=== PATIENT | male | born 1960 | race Caucasian/White ===

== ENCOUNTER → 2017-09-15 14:22 | Outpatient (REF) | payer OTHER, SELFPAY ==
[2017-09-15 18:17] LABS: Basophils % 0.5 % (0.1-2.0); Eosinophils # 0.2 K/mm3 (0.0-0.4); Hematocrit 52.2 % (42.0-52.0); Hemoglobin 17.7 g/dL (14.1-18.0); Lymphocytes # 1.8 K/mm3 (0.7-4.5); Lymphocytes % 23.4 K/mm3 (10-50); Mean Corpuscular Hemoglobin 32.9 pg (27.0-31.2); Mean Corpuscular Volume 96.8 fl (80-94); Mean Platelet Volume 8.1 fl (7.4-10.4); Monocytes # 0.4 K/mm3 (0.1-1.0); Monocytes % 5.4 % (1.7-9.3); Neutrophils # 5.4 K/mm3 (1.8-7.8); Neutrophils % 68.7 % (37.0-80.0); Platelet Count 262 K/mm3 (142-424); Red Cell Distribution Width 12.8 % (11.5-17.5); White Blood Count 7.8 K/mm3 (4.8-10.8)
[2017-09-15 19:13] LABS: Alanine Aminotransferase 41 U/L (12-78); Albumin Level 3.9 gm/dL (3.4-5.0); Albumin/Globulin Ratio 1.1 (1.1-1.8); Alkaline Phosphatase 163 U/L (46-116); Aspartate Amino Transferase 23 U/L (15-37); Bilirubin,Total 0.4 mg/dL (0.2-1.0); Blood Urea Nitrogen 19 mg/dL (7-18); Carbon Dioxide 24 mmol/L (21.0-32.0); Chol/HDL Ratio 7.6 (1-3.5); Cholesterol 190 mg/dL (140-200); Creatinine,Serum 1.04 mg/dL (0.70-1.30); Estimated Glomerular Filt Rate 74 ml/min (>60); GFR (African American) 90 ML/MIN (>60); Globulin 3.6 gm/dl (1.3-3.2); Glucose 120 mg/dL (74-106); HDL Cholesterol 25 mg/dL (27-67); LDL Cholesterol 98 mg/dL (0-130); Sodium 129 mmol/L (136-145); T4 (Thyroxine) 11.5 ug/dl (4.7-13.3); Thyroid Stimulating Hormone 0.64 uIU/ml (0.358-3.740); Total Protein,Serum 7.5 gm/dL (6.4-8.2); Triglycerides 334 mg/dL (30-200); VLDL Cholesterol 67 mg/dL (0-40)
[2017-09-15 19:29] LABS: Anion Gap 9.4 mEq/L (5-15); Chloride 100 mmol/L (98-107); Potassium 4.4 mmoL/L (3.5-5.1)
[2017-09-18 06:19] LABS: Vitamin D 25 Hydroxy 13.6 ng/mL (30.0-100.0)
== END ==
LOC: LAB 14:22
PROVIDERS: Visit Provider Physician Assistant
DX: I10 Essential (primary) hypertension (principal)
CPT/HCPCS: 80053; 80061; 82652; 84436; 84443; 85025

== ENCOUNTER → 2018-04-24 15:17 | Outpatient (CLI) | payer OTHER, SELFPAY ==
--- NOTE | 2018-04-24 15:20 | US_ITS ---
US soft tissue head and neck CLINICAL INDICATION: Palpable nodule in the right neck ITS.REASON: swelling right anterior neck ORDERING PHYSICIAN: DUSTIN Calderon PATIENT AGE: 57 years Comparison: None FINDINGS: The right lobe of the thyroid gland is 4.9 x 3.5 x 3.4 cm. Nodule A: 14 x 6 mm partially cystic nodule is solid component peripherally. Nodule B: Large complex cystic nodule 3 x 2.8 cm in the mid polar region. This has a septated cystic appearance with thickened septa. The left lobe is 4.6 x 1.7 x 1.2 cm and contains a 3 mm cyst centrally. In the lower pole there is a 7 x 5 monitor hypoechoic nodule with central cystic area There has been prior right parotidectomy. There is a 11 x 5 mm hypoechoic nodule in the right parotid bed. Could be due to hypoechoic lymph node or small cystic lesion. The right submandibular gland, left parotid gland and left submandibular gland are unremarkable. IMPRESSION: 1. Palpable nodule corresponds to a complex cystic mass of the right lobe of thyroid gland at 3 x 2.8 cm. 2. Oval hypoechoic area in right parotid bed etiology indeterminate 11 x 5 mm
== END ==
PROVIDERS: PCP Physician Assistant; Visit Provider Physician Assistant
DX: R22.0 Localized swelling, mass and lump, head (principal); R22.1 Localized swelling, mass and lump, neck
CPT/HCPCS: 76536

== ENCOUNTER → 2018-05-06 20:32 | Outpatient (CLI) | payer OTHER, SELFPAY ==
[2018-05-06 23:08] LABS: Alanine Aminotransferase 70 U/L (12-78); Albumin Level 4.2 gm/dL (3.4-5.0); Albumin/Globulin Ratio 1.1 (1.1-1.8); Alkaline Phosphatase 196 U/L (46-116); Anion Gap 15.9 mEq/L (5-15); Aspartate Amino Transferase 25 U/L (15-37); Bilirubin,Total 0.4 mg/dL (0.2-1.0); Blood Urea Nitrogen 16 mg/dL (7-18); Calcium 9.2 mg/dL (8.5-10.1); Carbon Dioxide 26 mmol/L (21.0-32.0); Chloride 101 mmol/L (98-107); Chol/HDL Ratio 7.4 (1-3.5); Cholesterol 216 mg/dL (140-200); Creatinine,Serum 1.16 mg/dL (0.70-1.30); Estimated Glomerular Filt Rate 65 ml/min (>60); GFR (African American) 79 ML/MIN (>60); Globulin 3.9 gm/dl (1.3-3.2); Glucose 101 mg/dL (74-106); HDL Cholesterol 29 mg/dL (27-67); LDL Cholesterol 124 mg/dL (0-130); Potassium 4.9 mmoL/L (3.5-5.1); Sodium 138 mmol/L (136-145); T4 (Thyroxine) 11.2 ug/dl (4.7-13.3); Thyroid Stimulating Hormone 0.25 uIU/ml (0.358-3.740); Total Protein,Serum 8.1 gm/dL (6.4-8.2); Triglycerides 315 mg/dL (30-200); VLDL Cholesterol 63 mg/dL (0-40)
[2018-05-06 23:10] LABS: Basophils # 0.1 K/mm3 (0-0.2); Basophils % 0.4 % (0.1-2.0); Eosinophils # 0.2 K/mm3 (0.0-0.4); Eosinophils % 1.5 % (0.1-12.0); Hematocrit 53.5 % (42.0-52.0); Hemoglobin 17.7 g/dL (14.1-18.0); Lymphocytes # 1.5 K/mm3 (0.7-4.5); Lymphocytes % 13.5 % (10-50); Mean Corpuscular HGB Conc 33.1 g/dL (31.8-35.4); Mean Corpuscular Hemoglobin 33.1 pg (27.0-31.2); Mean Corpuscular Volume 99.8 fl (80-94); Mean Platelet Volume 8.7 fl (7.4-10.4); Monocytes # 0.4 K/mm3 (0.1-1.0); Monocytes % 3.9 % (1.7-9.3); Neutrophils % 80.7 % (37.0-80.0); Platelet Count 287 K/mm3 (142-424); Red Blood Count 5.36 M/mm3 (4.60-6.20); Red Cell Distribution Width 13.1 % (11.5-17.5); White Blood Count 11.2 K/mm3 (4.8-10.8)
[2018-05-09 10:52] LABS: Vitamin B12 367 pg/mL (232-1245); Vitamin D 25 Hydroxy 29.2 ng/mL (30.0-100.0)
[2018-05-09 10:54] LABS: Folate 2.9 ng/mL (>3.0); PSA, Free 0.35 ng/mL; Prostate Specific Ag 1.1 ng/mL (0.0-4.0)
== END ==
PROVIDERS: Visit Provider Physician Assistant
DX: R41.0 Disorientation, unspecified (principal)
CPT/HCPCS: 80053; 80061; 82607; 82652; 82746; 84153; 84154; 84436; 84443; 85025

== ENCOUNTER → 2018-05-25 07:56 | Outpatient (CLI) | payer OTHER, SELFPAY ==
--- NOTE | 2018-05-25 08:03 | MR_ITS ---
MR head/brain wo con HISTORY: Confusion, altered mental status altered level consciousness, disorientation ITS.REASON: confusion ORDERING PHYSICIAN: DUSTIN Calderon PATIENT AGE: 57 years Comparison: None TECHNIQUE: Standard multiplanar multiecho sequences are performed without contrast. FINDINGS: No midline shift, mass effect, intracranial hemorrhage, or hydrocephalus. No evidence of acute infarction. There are scattered periventricular T2 white matter hyperintensities consistent with ischemic gliotic change from microvascular disease. The cerebellopontine angle, cerebellum, and brainstem are unremarkable. Small area of increased T2 signal present in the retropharyngeal region and the left at 10 mm consistent with a retropharyngeal cyst. Mild mucosal thickening of the maxillary sinuses. No mastoid effusion or sinus air-fluid level. The pituitary and optic heights and has an unremarkable appearance. IMPRESSION: 1. No acute intracranial findings. 2. 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
== END ==
PROVIDERS: PCP Emergency Medicine; Visit Provider Physician Assistant
DX: R41.0 Disorientation, unspecified (principal)
CPT/HCPCS: 70551

== ENCOUNTER → 2018-08-03 17:02 | Outpatient (CLI) | payer BC, SELFPAY ==
[2018-08-03 18:30] LABS: Basophils % 0.3 % (0.1-2.0); Eosinophils # 0.2 K/mm3 (0.0-0.4); Eosinophils % 2.8 % (0.1-12.0); Hematocrit 50.4 % (42.0-52.0); Hemoglobin 17.1 g/dL (14.1-18.0); Lymphocytes # 1.7 K/mm3 (0.7-4.5); Mean Corpuscular Hemoglobin 32.8 pg (27.0-31.2); Mean Corpuscular Volume 96.2 fl (80-94); Mean Platelet Volume 8.4 fl (7.4-10.4); Monocytes # 0.5 K/mm3 (0.1-1.0); Monocytes % 6.9 % (1.7-9.3); Neutrophils # 4.6 K/mm3 (1.8-7.8); Neutrophils % 66.1 % (37.0-80.0); Platelet Count 260 K/mm3 (142-424); Red Blood Count 5.23 M/mm3 (4.60-6.20); Red Cell Distribution Width 13.1 % (11.5-17.5); White Blood Count 6.9 K/mm3 (4.8-10.8)
== END ==
PROVIDERS: Visit Provider Specialist
DX: R41.0 Disorientation, unspecified (principal); E53.8 Deficiency of other specified B group vitamins; G47.30 Sleep apnea, unspecified; G93.40 Encephalopathy, unspecified; I25.10 Atherosclerotic heart disease of native coronary artery without angina pectoris; R41.3 Other amnesia; R53.83 Other fatigue
CPT/HCPCS: 85025

== ENCOUNTER → 2019-03-04 15:04 | Outpatient (CLI) | payer OTHER, BC, SELFPAY ==
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
== END ==
PROVIDERS: PCP Emergency Medicine; Visit Provider Nurse Practitioner Family
DX: M54.2 Cervicalgia (principal); M54.9 Dorsalgia, unspecified
CPT/HCPCS: 72141; 72148; 76376

== ENCOUNTER 2019-08-30 13:43 | Emergency (ER) | payer BC, SELFPAY ==
[2019-08-30 13:58] VITALS: BP 140/82; PULSE 97; RESP 20; TEMP 36.6; O2SAT 100; BMI 25.7
--- NOTE | 2019-08-30 14:13 | HMH.EDUTC ---
[facility] Disposition Clinical Impression: DDD (degenerative disc disease), lumbar Chronic low back pain Qualifiers: Back pain laterality: bilateral Sciatica presence: with sciatica Sciatica laterality: sciatica of right side Qualified Code(s): M54.41 - Lumbago with sciatica, right side Disposition: Home, Self-Care Condition on Discharge: Good Instructions: Low Back Pain Additional Instructions: Go home and rest. It would be best if you rested tomorrow too. No heavy lifting. No twisting. Take the oral medications as directed. The muscle relaxer (robaxin) will make you drowsy, so don't drive or operate heavy machinery after taking it. Don't start the oral steroids (medrol dose pack) until tomorrow, since you had the shots in here today. Follow up with your regular doctor. GO TO THE ER FOR ANY WORSENING SYMPTOMS OR CONCERN, ESPECIALLY BOWEL OR BLADDER ISSUES, SADDLE AREA NUMBNESS, FEVER, ETC Prescriptions: methylPREDNISolone [Medrol] 4 mg PO DIRECTED 6 Days #21 tab.ds.pk Transmission Status: Received by [facility] methocarbamoL [Robaxin 750mg Tab] 750 mg PO TIDP PRN #30 tab PRN Reason: Muscle Spasm Transmission Status: Received by [facility] Referrals: Gilmar Kendrick MD [Primary Care Provider] - Forms: Work/School Release Time of Disposition: 14:28 Medical Decision Making - Medical Records Medical records reviewed: No: I reviewed the patient's medical records. - Rod Inquiry Pt receiving controlled substance: No Vital Signs: 08/30/19 13:58 08/30/19 14:23 Temperature 97.9 F 97.9 F Temperature Source Oral Oral Pulse Rate 97 H Pulse Rate [Right Brachial] 97 H Respiratory Rate 20 20 Blood Pressure 140/82 Blood Pressure [Right Arm] 140/82 Blood Pressure Mean [Right Arm] 101 Blood Pressure Source Automatic Cuff Blood Pressure Source [Right Arm] Automatic Cuff Blood Pressure Position Sitting Blood Pressure Position [Right Arm] Sitting 02 Sat by Pulse Oximetry 100 Oxygen Delivery Method Room Air Room Air Orders (Tests/Meds): ED MEDICATIONS Discontinued Medications Generic Name Dose Route Start Last Admin Trade Name Freq PRN Reason Stop Dose Admin Ketorolac Tromethamine 60 mg 08/30/19 14:13 08/30/19 14:20 Toradol 60mg/2ml Vial IM 08/30/19 14:14 60 mg ONCE ONE Administration Methylprednisolone Sodium Succinate 125 mg 08/30/19 14:13 08/30/19 14:21 Solu-Medrol 125mg/2ml Vial IM 08/30/19 14:14 125 mg ONCE ONE Administration [facility] HPI - General Stated complaint: severe back pain Time Seen by Provider: 08/30/19 14:13 Mode of Arrival: Family Vehicle Source of Information: Patient Limitations: No Limitations Description of Symptoms (Recalled from Triage Doc. by RN): c/o SEVERE BACK PAIN. CHRONIC IN NATURE HEENT Symptoms (Recalled from RN notes): No Resp Symptoms (Recalled from RN notes): No Skin Symptoms (Recalled from RN notes): No MS Symptoms (Recalled from RN notes): Yes Functional Status (Recalled from RN notes): N/A - History of Present Illness Provider Complaint: He c/o worsening low back pain for the past 3 days. He denies any recent injury. He has a history of chronic back pain with occasional flare ups like he is having right now. - Related Data Previous Rx's Medication Instructions Recorded folic acid 1 mg tablet 2 mg PO DAILY 30 Days #60 tab 08/03/18 aspirin 325 mg tablet,delayed See Rx Instructions .ROUTE 03/24/19 release .COMPLEX #90 tab atorvastatin 40 mg tablet See Rx Instructions .ROUTE 03/24/19 .COMPLEX #90 tab lisinopril 10 mg tablet See Rx Instructions .ROUTE 03/24/19 .COMPLEX #90 tab metoprolol tartrate 25 mg tablet See Rx Instructions .ROUTE 03/24/19 .COMPLEX #60 tablet methocarbamoL [Robaxin 750mg Tab] 750 mg PO TIDP PRN #30 tab 08/30/19 methylPREDNISolone [Medrol] 4 mg PO DIRECTED 6 Days #21 08/30/19 tab.ds.pk Allergies Allergy/AdvReac Type Severity Reac
[2019-08-30 14:23] VITALS: BP 140/82; PULSE 97; RESP 20; TEMP 36.6; O2SAT 100
== END 2019-08-30 14:34 | disposition home or self-care (01) ==
PROVIDERS: Emergency Provider Nurse Practitioner Family; PCP Emergency Medicine
DX: M51.36 Other intervertebral disc degeneration, lumbar region (principal); M54.41 Lumbago with sciatica, right side; I10 Essential (primary) hypertension; E78.5 Hyperlipidemia, unspecified; I25.2 Old myocardial infarction; I25.10 Atherosclerotic heart disease of native coronary artery without angina pectoris; Z95.1 Presence of aortocoronary bypass graft
CPT/HCPCS: 96372; 99201

== ENCOUNTER → 2020-04-03 16:59 | Outpatient (CLI) | payer MEDICAID, SELFPAY ==
[2020-04-03 18:03] LABS: Alanine Aminotransferase 51 U/L (12-78); Albumin Level 4.3 g/dl (3.5-5.0); Albumin/Globulin Ratio 1.3 (1.1-1.8); Alkaline Phosphatase 174 U/L (38-126); Anion Gap 14.3 mEq/L (5-15); Aspartate Amino Transferase 36 U/L (17-59); Bilirubin,Total 0.7 mg/dl (0.2-1.3); Blood Urea Nitrogen 17 mg/dl (9-20); Calcium 9.8 mg/dl (8.4-10.2); Carbon Dioxide 23 mmol/L (22.0-30.0); Chloride 104 mmol/L (98-107); Chol/HDL Ratio 8.2 (1-3.5); Cholesterol 229 mg/dl (140-200); Estimated Glomerular Filt Rate 87 ml/min (>60); GFR (African American) 105 ML/MIN (>60); Globulin 3.2 g/dL (1.3-3.2); Glucose 159 mg/dl (74-100); HDL Cholesterol 28 mg/dl (40-60); Potassium 4.3 mmoL/L (3.5-5.1); Sodium 137 mmol/L (136-145); Total Protein,Serum 7.5 g/dl (6.3-8.2)
[2020-04-03 18:15] LABS: Direct LDL Cholesterol 146.34 mg/dL (100-129)
[2020-04-03 18:21] LABS: 25-OH Vitamin D, Total 22.1 ng/mL (30-100)
[2020-04-03 18:22] LABS: Triglycerides 415 mg/dl (30-150)
[2020-04-03 18:34] LABS: Prostate Specific Ag Screen 1.1 ng/ml (0.0-4.0); Thyroid Stimulating Hormone 2.92 uIU/mL (0.465-4.68)
[2020-04-03 19:03] LABS: Basophils # 0.1 K/mm3 (0-0.2); Basophils % 0.6 % (0.1-2.0); Eosinophils # 0.1 K/mm3 (0.0-0.4); Eosinophils % 1.8 % (0.1-12.0); Hematocrit 51.7 % (42.0-52.0); Lymphocytes # 1.6 K/mm3 (0.7-4.5); Lymphocytes % 22.7 % (10-50); Mean Corpuscular HGB Conc 32.8 g/dL (31.8-35.4); Mean Corpuscular Hemoglobin 32.7 pg (27.0-31.2); Mean Corpuscular Volume 99.7 fl (80-94); Mean Platelet Volume 8.5 fl (7.4-10.4); Monocytes # 0.4 K/mm3 (0.1-1.0); Platelet Count 272 K/mm3 (142-424); Red Blood Count 5.19 M/mm3 (4.60-6.20); Red Cell Distribution Width 12.9 % (11.5-17.5); White Blood Count 7.2 K/mm3 (4.8-10.8)
[2020-04-05 16:40] LABS: Folate 4.53 ng/mL; Vitamin B12 309 pg/mL (239-931)
[2020-04-05 17:26] LABS: Hemoglobin A1C 7.3 % (4.0-6.0)
== END ==
PROVIDERS: Visit Provider Physician Assistant
DX: E04.1 Nontoxic single thyroid nodule (principal); E55.9 Vitamin D deficiency, unspecified; R89.9 Unspecified abnormal finding in specimens from other organs, systems and tissues; I25.2 Old myocardial infarction; Z12.5 Encounter for screening for malignant neoplasm of prostate
CPT/HCPCS: 80053; 80061; 82306; 82607; 82746; 83036; 84439; 84443; 85025; G0103

== ENCOUNTER → 2020-04-19 14:50 | Outpatient (CLI) | payer MEDICAID, SELFPAY ==
--- NOTE | 2020-04-19 15:57 | MR_ITS ---
PROCEDURE: MR LUMBAR SPINE WO CON CLINICAL INDICATION: LBP pain, radiating down RLE RT HIP AND LOWER LEG PAIN. NUMBNESS IN RT FOOT. X3WKS. NO INJURY. PRIOR MRI 03-04-19 COMPARISON: MR MR CERVICAL SPINE WO CON from 03/04/2019 TECHNIQUE: Standard multiplanar multiecho sequences are performed without contrast. 3-D MIP and myelographic images are also rendered and reviewed FINDINGS: There is normal alignment. The spinal cord ends the L1 level. L1-L2: Unremarkable. L2-L3: Mild degenerative disc disease with minimal bulging disc. L3-L4: Unremarkable. L4-5: Mild degenerative disc disease with mild bulging disc along with facet and ligamentum hypertrophy with mild bilateral lateral recess and foraminal narrowing. Small annular fissure is noted. L5-S1: Degenerative disc disease with bulging disc with minimal protrusion of the disc centrally. There is facet and ligamentum hypertrophy. The small central disc protrusion does abut the right S1 nerve root anterior medially. No extruded herniated disc is evident. IMPRESSION: 1. L2-L3: Mild degenerative disc disease with minimal bulging disc. 2. L4-5: Mild degenerative disc disease with mild bulging disc along with facet and ligamentum hypertrophy with mild bilateral lateral recess and foraminal narrowing. Small annular fissure is noted. 3. L5-S1: Degenerative disc disease with bulging disc with minimal protrusion of the disc centrally. There is facet and ligamentum hypertrophy. The small central disc protrusion does abut the right S1 nerve root anterior medially. 4. No extruded herniated disc is evident. Dictated by: Dannie No MD 04/20/2020 18:21 Dannie No MD in [place] 04/20/2020 18:21
[2020-04-19 17:36] VITALS: BMI 27.1
== END ==
PROVIDERS: PCP Physician Assistant; Visit Provider Physician Assistant
DX: M54.10 Radiculopathy, site unspecified (principal); Z71.3 Dietary counseling and surveillance; E11.9 Type 2 diabetes mellitus without complications
CPT/HCPCS: 72148; 76376; 97802

== ENCOUNTER → 2020-04-27 09:06 | Outpatient (POV) | payer MEDICAID, SELFPAY ==
[2020-04-27 09:16] VITALS: BP 157/87; PULSE 73; RESP 20; TEMP 36.4; O2SAT 97; BMI 26.4
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
== END ==
PROVIDERS: PCP Physician Assistant; Visit Provider Clinical Nurse Specialist Family Health
DX: M46.1 Sacroiliitis, not elsewhere classified (principal); M47.896 Other spondylosis, lumbar region; M54.16 Radiculopathy, lumbar region
CPT/HCPCS: 99202

== ENCOUNTER 2020-05-08 13:00 | Day surgery (SDC) | payer MEDICAID, SELFPAY ==
[2020-05-08 13:12] VITALS: BP 162/90; PULSE 80; RESP 18; TEMP 36.7; O2SAT 98; BMI 25.7
[2020-05-08 13:29] VITALS: BP 146/93; BP 148/89; PULSE 79; RESP 18; O2SAT 98
--- NOTE | 2020-05-08 13:32 | HMH.PMPROC ---
- Procedure Date: 05/08/20 Time: 13:32 Anesthesiologist:: Melony Hamm APRN Complications:: None Pre-procedure Diagnosis:: Sacroiliitis Post-procedure Diagnosis:: Same Indications for Procedure:: Patient is a very pleasant 59-year-old white female who presents today for right SI joint injection. Patient has a positive Dong's test SI joint compression test distraction test and Kang test on the right side. Patient has tried and failed anti-inflammatories. Patient is interested in injective therapy we will move forward with this today. Procedure Details:: Informed consent was obtained and the risks and benefits of the procedure were explained to the patient. Patient was taken to the procedure room. Patient was placed prone on the procedure table. The [right] hip was prepped using ChloraPrep as a cleansing solution. The skin and subcutaneous tissues were anesthetized using lidocaine. Using fluoroscopic guidance I placed a 22-gauge spinal needle into the inferior aspect of the [right] SI joint. After this I injected 5 mL bupivacaine 0.25% and Depo-Medrol 40 mg into the [right] SI joint. The patient tolerated the procedure well with no complication. Plan and Disposition:: I will see the patient back in several weeks reassess him at that time. He has been instructed to call the office if he has any issues prior to next appointment. Dr. Lang has reviewed this note and agrees with this plan of care. This note was dictated using voice recognition software and may contain errors or omissions
[2020-05-08 13:41] VITALS: BP 169/97; PULSE 72; RESP 18; O2SAT 98
== END 2020-05-08 13:41 | disposition home or self-care (01) ==
LOC: SC.PAINP 13:01
PROVIDERS: PCP Physician Assistant; Visit Provider Clinical Nurse Specialist Family Health
DX: M46.1 Sacroiliitis, not elsewhere classified (principal); I10 Essential (primary) hypertension; E11.9 Type 2 diabetes mellitus without complications; E78.5 Hyperlipidemia, unspecified; Z82.49 Family history of ischemic heart disease and other diseases of the circulatory system
CPT/HCPCS: 27096; G0260; J1040; Q9966

== ENCOUNTER → 2020-06-08 10:09 | Outpatient (POV) | payer OTHER, SELFPAY ==
--- NOTE | 2020-06-08 10:45 | HMH.PAINSOAP ---
[facility] Pain Management SOAP Note Subjective:: Patient is a 59-year-old white male who presents today for follow-up after right SI joint injection. Patient got good relief after the injection. Patient is able to walk and move and complete activities of daily living. He rates his pain a 6 out of 10 today mostly in his right SI joint. Patient and I discussed repeating the injection he is agreeable I believe if we do not get relief from this then we need to move forward with lumbar epidural steroid injections. I also briefly discussed this with the patient. ROS General: no recent weight change, no fever, no sleep disturbances Respiratory: no cough, no shortness of air, no recurring pulmonary infections Cardiovascular/Peripheral Vascular: No chest pain, No palpitations, no edema, no shortness of breath. Gastrointestinal: no new onset incontinence, normal bowel movements reported Genitourinary: no new onset incontinence Musculoskeletal: SI joint pain Psychiatric: normal mood/ affect Neurological: [denies new onset weakness in extremities], [denies new onset balance issues] Objective:: Physical Exam General: Alert and oriented x3, no acute distress, pleasant and cooperative, [on room air] Lungs: Resps E/U, Symmetrical chest expansion, Eyes: PERRL Musculoskeletal: Flexion and extension of lumbar spine somewhat guarded secondary to pain, deep tendon reflexes normal, strength in upper and lower extremities [5/5], [abnormal gait noted] positive Kang test Dong's test SI joint compression test distraction test on the right side Neurological: speech clear, mobile device engineer equal, no gross sensory deficits Assessment:: Degenerative disc disease lumbar spine lumbar radiculopathy and sacroiliitis Plan:: We will repeat his right SI joint injection given the efficacy of the last 1 I do believe that after this if he does not get significant relief and return of function we will move forward with L4-L5 lumbar epidural steroid injection. Dr. Lang has reviewed this note and agrees with this plan of care. This note was dictated using voice recognition software and may contain errors or omissions [facility] History I have reviewed the patient's past medical history: Yes Medical History: Reports:: Arrhythmia, Coronary Artery Disease, Diabetes Mellitus Type 2, Hyperlipidemia, Hypertension, Myocardial Infarction Denies:: Cancer, Diabetes Mellitus Type 1, MRSA, Seizures *Have you ever received a pneumonia vaccine?: No *Have you received a flu vaccine this season?: No Other Medical History: Reports: Thyroid Disease. Denies: Blood Transfusion Reaction Other Surgeries: Yes: CABG, Cardiac Catheterization, Cardiac Surgery, Coronary Stent, Thyroidectomy, Other (tumor removed from behind ear) Amputation: No Fractures: No - *Social History Smoking Status: Current every day smoker Tobacco Type: cigarettes # Packs/Day (cigarettes): 1 #Yrs smoked (if former smoker): 40 Alcohol Intake: never Substance Use Type: marijuana *Occupational Status:: unemployed Housing: house Household Members: spouse *Travel in the last 8 weeks: None Family Hx:: Heart Attack, Hypertension
[2020-06-08 10:48] VITALS: BP 133/88; PULSE 74; RESP 18; TEMP 36.9; O2SAT 99; BMI 25.7
== END ==
PROVIDERS: PCP Physician Assistant; Visit Provider Clinical Nurse Specialist Family Health
DX: M51.16 Intervertebral disc disorders with radiculopathy, lumbar region (principal); M46.1 Sacroiliitis, not elsewhere classified
CPT/HCPCS: 99212; G0463

== ENCOUNTER 2020-08-04 08:59 | Day surgery (SDC) | payer OTHER, SELFPAY ==
[2020-08-04 09:38] VITALS: BP 157/90; PULSE 83; RESP 18; TEMP 36.2; O2SAT 99; BMI 25.7
[2020-08-04 10:06] VITALS: BP 141/88; PULSE 73; RESP 18
[2020-08-04 10:07] VITALS: BP 142/89; PULSE 75; RESP 18; O2SAT 98
[2020-08-04 10:20] VITALS: BP 169/92; PULSE 70; RESP 18; O2SAT 99
--- NOTE | 2020-08-04 10:26 | HMH.PMPROC ---
- Procedure Date: 08/04/20 Time: 10:26 Anesthesiologist:: Emery Lang MD Complications:: None Pre-procedure Diagnosis:: Sacroiliitis Post-procedure Diagnosis:: Same Indications for Procedure:: This patient is a pleasant 60-year-old white male who we have been treating for right sided hip pain. He also has right leg pain. He did well after his last right SI joint injection it did help him walk. He was about 30 to 40% better. We will do a repeat right SI joint injection today as his pain is returned. He does have a positive Dong's test on the right side. He has a positive Kang test on the right side. He has a positive SI joint compression test on the right side. He has a positive distraction test on the right side. Procedure Details:: Right SI joint injection under fluoroscopy Informed consent was obtained and the risks and benefits of the procedure was going to the patient. Patient was taken to the procedure room. Patient was placed prone on the procedure table. The right hip was prepped using ChloraPrep. The skin and subcutaneous tissues were anesthetized using lidocaine. I placed a 22-gauge spinal needle into the inferior aspect of the right SI joint. Needle placement was confirmed with dye. After this we injected 5 mL bupivacaine 0.25% and Depo-Medrol 40 mg into the right SI joint. The patient tolerated the procedure well with no complication. Plan and Disposition:: We will follow-up with him in 2 weeks. Will reevaluate his symptoms. If he does not get significant pain relief which is long-lasting we may look at his lumbar spine and plan on lumbar epidural steroid injection under fluoroscopy to see if this may help with his residual pain symptoms.
== END 2020-08-04 10:20 | disposition home or self-care (01) ==
LOC: SC.PAINP 09:00
PROVIDERS: PCP Physician Assistant; Visit Provider Anesthesiology
DX: M46.1 Sacroiliitis, not elsewhere classified (principal); E11.9 Type 2 diabetes mellitus without complications; I10 Essential (primary) hypertension; Z72.0 Tobacco use; I25.10 Atherosclerotic heart disease of native coronary artery without angina pectoris; E78.5 Hyperlipidemia, unspecified; E07.9 Disorder of thyroid, unspecified; Z95.1 Presence of aortocoronary bypass graft; Z79.82 Long term (current) use of aspirin; Z79.899 Other long term (current) drug therapy; Z79.84 Long term (current) use of oral hypoglycemic drugs
CPT/HCPCS: 27096; G0260; J1040; Q9966

== ENCOUNTER → 2020-08-31 08:53 | Outpatient (POV) | payer OTHER, SELFPAY ==
[2020-08-31 08:59] VITALS: BP 171/84; PULSE 74; RESP 18; O2SAT 98; BMI 25.7
--- NOTE | 2020-08-31 09:17 | P.CONS_ITS ---
[facility] Pain Management SOAP Note Subjective:: Patient is a pleasant 60-year-old white male who presents today for follow-up after right SI joint injection. Patient has done well with this and has had quite a bit of relief in his right leg however his low back is hurting him at this time. He rates his pain a 5 out of 10. Patient does have an MRI showing degenerative disc disease along with S1 nerve impingement. We discussed lumbar epidural steroid injections he would like to move forward with this. He is not on any anticoagulation therapy. ROS General: no recent weight change, no fever, no sleep disturbances Respiratory: no cough, no shortness of air, no recurring pulmonary infections Cardiovascular/Peripheral Vascular: No chest pain, No palpitations, no edema, no shortness of breath. Gastrointestinal: no new onset incontinence, normal bowel movements reported Genitourinary: no new onset incontinence Musculoskeletal: Back pain Psychiatric: normal mood/ affect Neurological: [denies new onset weakness in extremities], [denies new onset balance issues] Objective:: Physical Exam General: Alert and oriented x3, no acute distress, pleasant and cooperative, [on room air] Lungs: Resps E/U, Symmetrical chest expansion, Eyes: PERRL Musculoskeletal: Flexion and extension of lumbar spine somewhat guarded secondary to pain, deep tendon reflexes normal, strength in upper and lower extremities [5/5], [abnormal gait noted] Neurological: speech clear, transplant rn equal, no gross sensory deficits Assessment:: Degenerative disc disease lumbar spine lumbar radiculopathy and back pain Plan:: We will schedule an L5-S1 lumbar epidural steroid injection. I will follow-up with him afterwards reassess his symptoms at that time he has been instructed to call the office if he has any issues prior to his next appointment. Dr. Lang has reviewed this note and agrees with this plan of care. This note was dictated using voice recognition software and may contain errors or omissions [facility] History I have reviewed the patient's past medical history: Yes Medical History: Reports:: Arrhythmia, Coronary Artery Disease, Diabetes Mellitus Type 2, Hyperlipidemia, Hypertension, Myocardial Infarction Denies:: Cancer, Diabetes Mellitus Type 1, MRSA, Seizures *Have you ever received a pneumonia vaccine?: Yes *Have you received a flu vaccine this season?: Yes Other Medical History: Reports: Thyroid Disease. Denies: Blood Transfusion Reaction Other Surgeries: Yes: CABG, Cardiac Catheterization, Cardiac Surgery, Coronary Stent, Thyroidectomy, Other (tumor removed from behind ear) Amputation: No Fractures: No - *Social History Smoking Status: Current every day smoker Tobacco Type: cigarettes # Packs/Day (cigarettes): 1 #Yrs smoked (if former smoker): 40 Alcohol Intake: never Substance Use Type: marijuana *Occupational Status:: employed Housing: house Household Members: spouse *Travel in the last 8 weeks: None Family Hx:: Heart Attack, Hypertension
== END ==
PROVIDERS: PCP Physician Assistant; Visit Provider Clinical Nurse Specialist Family Health
DX: M51.16 Intervertebral disc disorders with radiculopathy, lumbar region (principal)
CPT/HCPCS: 99212; G0463

== ENCOUNTER 2020-09-08 10:23 | Day surgery (SDC) | payer OTHER, SELFPAY ==
[2020-09-08 10:44] VITALS: BP 144/79; PULSE 50; RESP 20; TEMP 37.1; O2SAT 100; BMI 25.7
[2020-09-08 10:57] VITALS: BP 128/85; PULSE 54; RESP 18; O2SAT 98
[2020-09-08 10:58] VITALS: BP 129/87; PULSE 58; RESP 18; O2SAT 98
[2020-09-08 11:10] VITALS: BP 136/77; PULSE 55; RESP 20; O2SAT 99
--- NOTE | 2020-09-08 11:16 | HMH.PMPROC ---
- Procedure Date: 09/08/20 Time: 11:16 Anesthesiologist:: Emery Lang MD Complications:: None Pre-procedure Diagnosis:: Degenerative disc disease of lumbar spine with lumbar radiculopathy symptoms Post-procedure Diagnosis:: Same Indications for Procedure:: This patient is a pleasant 60-year-old white male who we are treating for low back pain with lumbar radiculopathy symptoms and right-sided hip pain. He did have a right SI joint injection which did not give him much long-lasting relief. He presents for a lumbar epidural steroid injection to see if this helps more with his pain symptoms. Procedure Details:: Informed consent was obtained and the risk and benefits of the procedure was explained to the patient. The patient was taken to the procedure room. The patient was placed prone on the procedure table. The patient was prepped and draped in sterile fashion. C-arm fluoroscopy was used to view the lumbar spine. Skin and subcutaneous tissues were anesthetized using lidocaine. I placed an 18-gauge epidural needle and advanced into the L4-L5 interspace using fluoroscopic guidance and [id number] to air. After confirmation of needle placement in the epidural space with dye I injected 2 mL of lidocaine 1.5% with Depo-Medrol 80 mg. Patient tolerated the procedure well with no complications. Plan and Disposition:: We will follow-up with him in 2 weeks. Will reevaluate symptoms at that time.
== END 2020-09-08 11:10 | disposition home or self-care (01) ==
LOC: SC.PAINP 10:24
PROVIDERS: PCP Physician Assistant; Visit Provider Anesthesiology
DX: M51.16 Intervertebral disc disorders with radiculopathy, lumbar region (principal); E78.5 Hyperlipidemia, unspecified; I10 Essential (primary) hypertension; I25.10 Atherosclerotic heart disease of native coronary artery without angina pectoris; Z95.1 Presence of aortocoronary bypass graft; Z72.0 Tobacco use; I25.2 Old myocardial infarction; E07.9 Disorder of thyroid, unspecified
CPT/HCPCS: 62323; J1040; Q9966

== ENCOUNTER → 2020-10-02 10:27 | Outpatient (POV) | payer OTHER, SELFPAY ==
[2020-10-02 10:48] VITALS: BP 132/75; PULSE 72; RESP 18; O2SAT 97; BMI 24.4
--- NOTE | 2020-10-02 14:02 | HMH.PAINSOAP ---
[facility] Pain Management SOAP Note Subjective:: Patient is pleasant 60-year-old white male who we are treating for low back pain with lumbar radiculopathy symptoms. Patient had right SI joint injection that did not give him much relief he also had a lumbar epidural steroid injection with no relief. Patient rates pain a 6 out of 10. Patient is interested in potential neurosurgical consultation. We will see if we need to get a new updated MRI for him. Also send him to Dr. Sun for evaluation. He has had pain for over 6 months. He is tried and failed injective therapy and medications. ROS General: no recent weight change, no fever, no sleep disturbances Respiratory: no cough, no shortness of air, no recurring pulmonary infections Cardiovascular/Peripheral Vascular: No chest pain, No palpitations, no edema, no shortness of breath. Gastrointestinal: no new onset incontinence, normal bowel movements reported Genitourinary: no new onset incontinence Musculoskeletal: Back pain, leg pain Psychiatric: normal mood/ affect Neurological: [denies new onset weakness in extremities], [denies new onset balance issues] Objective:: Physical Exam General: Alert and oriented x3, no acute distress, pleasant and cooperative, [on room air] Lungs: Resps E/U, Symmetrical chest expansion, Eyes: PERRL Musculoskeletal: Flexion and extension of lumbar spine somewhat guarded secondary to pain, deep tendon reflexes normal, strength in upper and lower extremities [5/5], [abnormal gait noted] Neurological: speech clear, scanning coordinator equal, no gross sensory deficits Assessment:: Degenerative disc disease lumbar spine lumbar radiculopathy and back pain Plan:: We will send the patient to Dr. Sun for neurosurgical evaluation. He has been instructed to call the office if he has any issues prior to his next appointment. Dr. Lang has reviewed this note and agrees with this plan of care. This note was dictated using voice recognition software and may contain errors or omissions [facility] History I have reviewed the patient's past medical history: Yes Medical History: Reports:: Arrhythmia, Coronary Artery Disease, Diabetes Mellitus Type 2, Hyperlipidemia, Hypertension, Myocardial Infarction Denies:: Cancer, Diabetes Mellitus Type 1, MRSA, Seizures *Have you ever received a pneumonia vaccine?: No *Have you received a flu vaccine this season?: No Other Medical History: Reports: Thyroid Disease. Denies: Blood Transfusion Reaction Other Surgeries: Yes: CABG, Cardiac Catheterization, Cardiac Surgery, Coronary Stent, Thyroidectomy, Other (tumor removed from behind ear) Amputation: No Fractures: No - *Social History Smoking Status: Current every day smoker Tobacco Type: cigarettes # Packs/Day (cigarettes): 1 #Yrs smoked (if former smoker): 40 Alcohol Intake: never Substance Use Type: marijuana *Occupational Status:: employed Housing: house Household Members: other *Travel in the last 8 weeks: None Family Hx:: Heart Attack, Hypertension
== END ==
PROVIDERS: PCP Physician Assistant; Visit Provider Clinical Nurse Specialist Family Health
DX: M51.16 Intervertebral disc disorders with radiculopathy, lumbar region (principal)
CPT/HCPCS: 99212; G0463

== ENCOUNTER → 2020-10-06 10:18 | Outpatient (CLI) | payer OTHER, SELFPAY ==
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
== END ==
PROVIDERS: PCP Physician Assistant; Visit Provider Clinical Nurse Specialist Family Health
DX: M54.5 Low back pain (principal)
CPT/HCPCS: 72148; 76376

== ENCOUNTER → 2020-10-30 13:33 | Outpatient (POV) | payer OTHER, SELFPAY ==
[2020-10-30 14:20] VITALS: BP 146/81; PULSE 74; RESP 18; O2SAT 97; BMI 30.7
--- NOTE | 2020-10-30 16:03 | HMH.PAINSOAP ---
[facility] Pain Management SOAP Note Subjective:: Patient is a 60-year-old white male who presents today for follow-up. He is being treated for degenerative disc disease lumbar spine with lumbar radiculopathy symptoms. Patient has had 3 lumbar epidural steroid injections as well as 2 SI injections with no significant relief. He has an MRI from last year as well as a recent injection. Patient is here today for review of his MRI. He is having low back pain with radiation into his bilateral lower extremities. The patient's pain is worse with standing walking and does not improve with sitting. He says the pain is worse on the right side in to the right hip and buttock. He has tried and failed conservative therapies of physical therapy for greater than 6 weeks along with continued home stretching. He has also tried injective therapy with no relief. Ice and heat therapies have not helped the pain. He does continue with ice and heat therapies as well. Patient would like a neurosurgical referral. Review of Systems General: No recent weight changes, no fever, no sleep disturbances Respiratory: No cough, no shortness of air, no recurring pulmonary infections Cardiovascular/peripheral vascular: No chest pain, no palpitations, no edema, no shortness of breath Gastrointestinal: No new onset incontinence, normal bowel movements reported Genitourinary: No new onset incontinence Musculoskeletal: Low back pain with radiation into right buttock and hip Psychiatric: Normal mood/affect Neurological: [Denies weakness in extremities], [denies balance issues] Objective:: Physical exam General: Alert and oriented x3, no acute distress, pleasant and cooperative, [on room air] Lungs: Respirations even and unlabored, symmetrical chest expansion Eyes: PERRL Musculoskeletal: Flexion and extension of [] lumbar spine somewhat guarded secondary to pain, deep tendon reflexes normal, strength in upper and lower extremities [5/5], [abnormal gait noted] Neurological: Speech clear, 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 He has requested a neurosurgical evaluation. He has tried and failed conservative therapies of physical therapy for more than 6 weeks along with continued home stretching. He has also tried anti-inflammatories and injective therapy. The patient has had SI injections as well as lumbar epidural steroid injections x3. We will refer him to neurosurgery and see him back afterwards to reevaluate his symptoms. Patient has been instructed to contact the clinic with any concerns before the next appointment. Dr. Lang has reviewed this note and agrees with this plan of care. This note was dictated using voice recognition software and make contain errors or omissions. [facility] History I have reviewed the patient's past medical history: Yes Medical History: Reports:: Arrhythmia, Coronary Artery Disease, Diabetes Mellitus Type 2, Hyperlipidemia, Hypertension, Myocardial Infarction Denies:: Cancer, Diabetes Mellitus Type 1, MRSA, Seizures *Have you ever received a pneumonia vaccine?: No *Have you received a flu vaccine this season?: Yes Other Medical History: Reports: Thyroid Disease. Denies: Blood Transfusion Reaction Other Surgeries: Yes: CABG, Cardiac Catheterization, Cardiac Surgery, Coronary Stent, Thyroidectomy, Other (tumor removed from behind ear) Amputation: No Fractures: No - *Social History Smoking Status: Current every day smoker Tobacco Type: cigarettes # Packs/Day (cigarettes): 1 #Yrs smoked (if former smoker): 40 Alcohol Intake: never Substance Use Type: marijuana *Occupational Status:: unemployed Housing: house Household Members: other *Travel in the last 8 weeks: None Family Hx:: Heart Attack, Hypertension
== END ==
PROVIDERS: Visit Provider Clinical Nurse Specialist Family Health
DX: M51.16 Intervertebral disc disorders with radiculopathy, lumbar region (principal)
CPT/HCPCS: 99212; G0463

== ENCOUNTER 2021-06-10 23:01 | Inpatient (IN) | payer OTHER, SELFPAY ==
[2021-06-10] VITALS (7 sets, daily range): BP systolic 95–178; BP diastolic 61–98; PULSE 72–84; RESP 18–20; TEMP -17.7–36.9; O2SAT 92–97; BMI 24.4
--- NOTE | 2021-06-10 | IR_ITS ---
APPROVED REPORT Patient Location: Emergent Audit Mgr: PANFILO Byrd RT (R) PROCEDURES Left heart catheterization Left ventriculogram Selective coronary angiogram Left internal mammary angiography Selective engagement of the saphenous vein graft to the circumflex artery Mechanical thrombectomy to the dominant right coronary artery followed by drug-eluting stent deployment to the proximal mid and distal vessel INDICATION Acute inferolateral ST elevation myocardial infarction, Coronary artery disease, History of coronary bypass surgery Informed consent was obtained prior to the procedure. COMPLICATIONS None Estimated Blood Loss: Less than 10 mls TECHNIQUE One percent lidocaine used to anesthetize the right groin. The right femoral artery was accessed via the Salinger technique and a 6 Welsh sheath was placed in the right femoral artery. A JR4 guide catheter was used to perform right coronary angiography. This was identified as the infarct vessel therefore Choice PT extra-support wire was used to push through the acute occlusion. Following this a penumbra mechanical aspiration catheter was used to mechanically aspirate a large thrombus thereby restoring ARISTEO-3 flow. A 3 mm x 38 mm resolute [place] stent was deployed at 24 miguel reducing the critical stenosis to 0%. Patient experienced a V. fib arrest and was shocked one time which successfully converted him back to sinus rhythm. Following this an additional 3 mm x 26 mm resolute Wing stent was placed proximal to the first stent and still overlapping it and deployed at 24 miguel reducing the stenosis to 0%. ARISTEO 0 flow was present down the vessel at the beginning of the procedure with ARISTEO-3 flow at the end of the procedure. This guide catheter was then used to perform left heart catheterization left ventriculogram as well as and selective engagement of the saphenous vein graft to the circumflex artery and left internal mammary angiography. Following this a JL4 5 Welsh catheter was placed in the left main artery and angiography was performed. At the end of the procedure the apparatus was removed the groin was reprepped gloves were changed sheath was removed good hemostasis was achieved using Perclose device patient was transferred to the postop holding area in stable condition ANGIOGRAPHIC RESULTS The left main artery Has an ostial 60% stenosis and a distal 80% stenosis The left anterior descending artery Is proximally occluded. There appears to be a bifurcating moderate sized ramus intermedius vessel which originates off the left main artery and is widely patent The circumflex artery Is a nondominant vessel with a proximal 90% stenosis and subtotally occluded at mid segment with competitive flow identified from the saphenous vein graft The right coronary artery Is a large dominant vessel and occluded at mid segment with a large thrombosis. Following revascularization the proximal mid segments are widely patent with drug-eluting stents with excellent ARISTEO-3 inline flow into a large posterior descending and posterior lateral branch. The RUIZ ventriculogram reveals Preserved at 45 to 50% with mild inferior wall hypokinesis The left ventricular end-diastolic pressure 15 mmHg JORGE to the LAD widely patent Saphenous vein graft to the circumflex artery widely patent IMPRESSION Acute inferolateral ST elevation myocardial infarction as described above Successful mechanical aspiration followed by drug-eluting stent deployment to the proximal mid and distal dominant right coronary in a contiguous manner 100% occlusion reduced to 0% with 2 contiguous drug-eluting stents Preserved ejection fraction of 45 to 50% with inferior wall hypokinesis
--- NOTE | 2021-06-10 23:15 | HMH.EDCP ---
ED Disposition Clinical Impression: ST elevation myocardial infarction (STEMI) Qualifiers: Involved coronary artery: unspecified coronary artery Qualified Code(s): I21.3 - ST elevation (STEMI) myocardial infarction of unspecified site Disposition: Admitted As Inpatient Condition on Discharge: Serious - Critical Care Critical Care Time: No Attestation: On 06/10/21, the high probability of a clinically significant, sudden or life threatening deterioration of the following system(s) required my full and direct attention, intervention and personal management. The time I documented below is in addition to time spent performing reported procedures but includes the following listed in this critical care notation. Medical Decision Making - Medical Records Medical records reviewed: Yes: I reviewed the patient's medical records. - Rod Inquiry Pt receiving controlled substance: No Vital Signs: 06/10/21 22:59 06/10/21 23:35 06/10/21 23:40 Temperature Temperature Source Pulse Rate Pulse Rate [Apical] 84 75 75 Respiratory Rate 18 20 20 Blood Pressure [Right Arm] 178/98 H 99/65 L 96/62 L Blood Pressure Mean [Right Arm] 124 76 73 Blood Pressure Source [Right Arm] Blood Pressure Position [Right Arm] 02 Sat by Pulse Oximetry 97 94 L 92 L Oxygen Delivery Method Nasal Cannula Room Air Room Air Oxygen Flow Rate (LPM) 2 06/10/21 23:45 06/10/21 23:50 06/10/21 23:52 Temperature 98.4 F Temperature Source Temporal Artery Scan Pulse Rate 75 Pulse Rate [Apical] 72 73 73 Respiratory Rate 20 20 18 Blood Pressure [Right Arm] 95/63 L 101/61 L 101/61 L Blood Pressure Mean [Right Arm] 73 74 74 Blood Pressure Source [Right Arm] Automatic Cuff Blood Pressure Position [Right Arm] Supine 02 Sat by Pulse Oximetry 92 L 93 L 92 L Oxygen Delivery Method Room Air Room Air Room Air Oxygen Flow Rate (LPM) 06/11/21 00:05 06/11/21 00:20 06/11/21 00:35 Temperature 97.8 F Temperature Source Oral Pulse Rate Pulse Rate [Apical] 72 66 66 Respiratory Rate 20 17 20 Blood Pressure [Right Arm] 102/62 L 116/66 106/66 L Blood Pressure Mean [Right Arm] 75 82 79 Blood Pressure Source [Right Arm] Automatic Cuff Automatic Cuff Blood Pressure Position [Right Arm] Supine Supine 02 Sat by Pulse Oximetry 94 L 93 L 94 L Oxygen Delivery Method Room Air Room Air Room Air Oxygen Flow Rate (LPM) 06/11/21 00:45 06/11/21 00:50 06/11/21 01:00 Temperature 97.7 F Temperature Source Oral Pulse Rate Pulse Rate [Apical] 70 Respiratory Rate 20 Blood Pressure [Right Arm] 114/69 Blood Pressure Mean [Right Arm] 84 Blood Pressure Source [Right Arm] Automatic Cuff Blood Pressure Position [Right Arm] Supine 02 Sat by Pulse Oximetry 93 L 94 L Oxygen Delivery Method Room Air Room Air Room Air Oxygen Flow Rate (LPM) - Lab Data Lab results reviewed: Yes: I reviewed the patient's lab results. Lab Results 06/10/21 23:02: WBC 9.7, RBC 5.33, Hgb 17.6, Hct 52.8 H, MCV 99.1 H, MCH 32.9 H, MCHC 33.2, RDW 13.2, Plt Count 340, MPV 8.2, Neut % (Auto) 58.1, Lymph % (Auto) 31.4, [place] % (Auto) 5.7, Eos % (Auto) 2.1, Baso % (Auto) 2.7 H, Neut # (Auto) 5.6, Lymph # (Auto) 3.0, [place] # (Auto) 0.6, Eos # (Auto) 0.2, Baso # (Auto) 0.3 H 06/10/21 23:02: Sodium 140, Potassium 3.8, Chloride 100, Carbon Dioxide 27, Anion Gap 16.8 H, BUN 12, Creatinine 1.00, Estimated Creat Clear 93, Estimated GFR 77, Est GFR ( Amer) 93, Glucose 196 H, Calcium 10.0, Total Bilirubin 0.7, Direct Bilirubin 0.4, Conjugated Bilirubin 0.0, Indirect Bilirubin 0.3, Unconjugated Bilirubin 0.4, AST 41, ALT 43, Alkaline Phosphatase 178 H, Troponin I 0.30 H, Total Protein 8.8 H, Albumin 4.8 06/10/21 23:02: Triglycerides 876 H, Cholesterol 236 H, LDL Cholesterol Direct 121.70, HDL Cholesterol 24 L, Cholesterol/HDL Ratio 9.8 H 06/10/21 23:11: SARS-CoV-2 (PCR) Not detected, Influenza A Untype (PCR) Not detected, Influenza Type B (PCR) Not detected Resul
--- NOTE | 2021-06-10 23:15 | PC.NURSE ---
Addendum entered by Cory Gaytan RN 06/11/21 02:23: EDIT - Pt left for collaborating supervising physician at 2304. Original Note: EMS called at 2216 reporting a STEMI in field. Photo of EKG was sent to Thang. ETA per EMS is 30 minutes. 2225- MD Aroldo speaking to MD Thang at this time. Verbal orders for 100mg/kg of heparin IV and 180mg Brilinta PO when pt arrives. 2226- collaborating supervising physician team paged by household coordinator. 225- Pt arrived to ED. Pads placed and bilateral sherly trimmed. collaborating supervising physician called household coordinator and elected to have pt brought straight to pharmaceutical laboratory technician. Pt on mobile monitor and escorted to pharmaceutical laboratory technician with Jeri Rolle and JERI Gilliland at 2204. Heparin and Brilinta given at this time. #20g in left AC via EMS.
[2021-06-10 23:16] LABS: Coronavirus 19, PCR Not Detected (NotDetected); Influenza A, PCR Not Detected (NotDetected); Influenza B, PCR Not Detected (NotDetected)
[2021-06-10 23:30] LABS: Basophils # 0.3 K/mm3 (0-0.2); Basophils % 2.7 % (0.1-2.0); Eosinophils # 0.2 K/mm3 (0.0-0.4); Eosinophils % 2.1 % (0.1-12.0); Hematocrit 52.8 % (42.0-52.0); Hemoglobin 17.6 g/dL (14.1-18.0); Lymphocytes % 31.4 % (10-50); Mean Corpuscular HGB Conc 33.2 g/dL (31.8-35.4); Mean Corpuscular Hemoglobin 32.9 pg (27.0-31.2); Mean Corpuscular Volume 99.1 fl (80-94); Mean Platelet Volume 8.2 fl (7.4-10.4); Monocytes # 0.6 K/mm3 (0.1-1.0); Monocytes % 5.7 % (1.7-9.3); Neutrophils # 5.6 K/mm3 (1.8-7.8); Neutrophils % 58.1 % (37.0-80.0); Platelet Count 340 K/mm3 (142-424); Red Blood Count 5.33 M/mm3 (4.60-6.20); Red Cell Distribution Width 13.2 % (11.5-17.5); White Blood Count 9.7 K/mm3 (4.8-10.8)
[2021-06-10 23:34] LABS: Alanine Aminotransferase 43 U/L (12-78); Albumin Level 4.8 g/dl (3.5-5.0); Alkaline Phosphatase 178 U/L (38-126); Anion Gap 16.8 mEq/L (5-15); Aspartate Amino Transferase 41 U/L (17-59); Bilirubin,Direct 0.4 mg/dl (0.0-0.4); Bilirubin,Indirect 0.3 mg/dL (0.0-0.9); Bilirubin,Total 0.7 mg/dl (0.2-1.3); Bilirubin,Unconjugated 0.4 mg/dL (0.0-1.1); Blood Urea Nitrogen 12 mg/dl (9-20); Carbon Dioxide 27 mmol/L (22.0-30.0); Chloride 100 mmol/L (98-107); Chol/HDL Ratio 9.8 (1-3.5); Cholesterol 236 mg/dl (140-200); Creatinine Clearance Estimated 93 mL/min (50-200); Estimated Glomerular Filt Rate 77 ml/min (>60); GFR (African American) 93 ML/MIN (>60); Glucose 196 mg/dl (74-100); HDL Cholesterol 24 mg/dl (40-60); Potassium 3.8 mmoL/L (3.5-5.1); Sodium 140 mmol/L (136-145); Total Protein,Serum 8.8 g/dl (6.3-8.2)
[2021-06-10 23:48] LABS: Triglycerides 876 mg/dl (30-150)
[2021-06-11] VITALS (16 sets, daily range): BP systolic 100–131; BP diastolic 46–88; PULSE 44–82; RESP 16–22; TEMP 36.4–37.1; O2SAT 93–99; BMI 24.4
--- NOTE | 2021-06-11 | ECG_ITS ---
APPROVED REPORT Exam: Resting ECG HR:68 bpm ECG Measurements Heart Rate 68 AXES WA 199 P 40 QRSd 98 QRS 50 QT 424 T -30 QTc 441 Conclusion SINUS RHYTHM WITH FREQUENT VENTRICULAR PREMATURE COMPLEXES INCOMPLETE RIGHT BUNDLE BRANCH BLOCK [90+ ms QRS DURATION, TERMINAL R IN V1/V2, 40+ ms S IN I/aVL/V4/V5/V6] SEPTAL MYOCARDIAL INFARCTION , PROBABLY OLD [40+ ms Q WAVE IN V1/V2] ST ELEVATION, CONSIDER INFERIOR INJURY [MARKED ST ELEVATION W/O NORMALLY INFLECTED T-WAVE IN II/aVF] ACUTE MD UNCONFIRMED REPORT Electronically signed by : Bebeto Carrasco MD 06/11/2021 17:26:45
--- NOTE | 2021-06-11 01:49 | PC.NURSE ---
Late entry: labor relations director team paged 06/10/21 Calls returned at : [phone]-JERI Mcclain. [phone]-JERI Brown. [phone].
--- NOTE | 2021-06-11 02:59 | PC.NURSE ---
Pt continued to c/o nausea. Verbal orders from MD Estrellita for phenergan IV.
--- NOTE | 2021-06-11 04:20 | PC.NURSE ---
called and was given an update on pt condition.
--- NOTE | 2021-06-11 04:56 | PC.NURSE ---
0455- Pt sat up 15 degrees per his request. Will reevaluate in 15 min.
[2021-06-11 05:07] LABS: Basophils # 0.1 K/mm3 (0-0.2); Basophils % 0.6 % (0.1-2.0); Eosinophils # 0.2 K/mm3 (0.0-0.4); Eosinophils % 1.2 % (0.1-12.0); Hematocrit 49.8 % (42.0-52.0); Lymphocytes # 1.1 K/mm3 (0.7-4.5); Lymphocytes % 9.2 % (10-50); Mean Corpuscular HGB Conc 32.1 g/dL (31.8-35.4); Mean Corpuscular Hemoglobin 32.6 pg (27.0-31.2); Mean Corpuscular Volume 101.6 fl (80-94); Mean Platelet Volume 7.9 fl (7.4-10.4); Monocytes # 0.3 K/mm3 (0.1-1.0); Monocytes % 2.7 % (1.7-9.3); Neutrophils # 10.7 K/mm3 (1.8-7.8); Neutrophils % 86.3 % (37.0-80.0); Platelet Count 260 K/mm3 (142-424); Red Cell Distribution Width 13.3 % (11.5-17.5); White Blood Count 12.4 K/mm3 (4.8-10.8)
[2021-06-11 05:09] LABS: MANUAL DIFFERENTIAL MANUAL DIFFERENTIAL (MANUAL DIFF)
[2021-06-11 05:14] LABS: Chloride 106 mmol/L (98-107); Potassium 4.3 mmoL/L (3.5-5.1); Sodium 134 mmol/L (136-145)
[2021-06-11 05:17] LABS: Blood Urea Nitrogen 11 mg/dl (9-20); Carbon Dioxide 24 mmol/L (22.0-30.0); Creatinine Clearance Estimated 133 mL/min (50-200); Eosinophils % 1 % (0-3); Estimated Glomerular Filt Rate 116 ml/min (>60); GFR (African American) 140 ML/MIN (>60); Lymphocytes % 13 % (10-50); Macrocytosis 1+; Monocytes % 2 % (2-9); Neutrophils % 79 % (42-76); Platelet Estimate Normal; Total Cells Counted 100
[2021-06-11 05:18] LABS: Calcium 8.7 mg/dl (8.4-10.2); Glucose 265 mg/dl (74-100)
--- NOTE | 2021-06-11 05:27 | PC.NURSE ---
Pt began to have frequent ectopy on monitor. 12 lead obtained and read by MD Aroldo as well as sent to MD Thang. Md Thang says EKG is ok and no new orders given. Pt has no complaints. he rates pain 1 out of 10 and is in no apparent distress. Will continue to monitor.
--- NOTE | 2021-06-11 06:59 | PC.NURSE ---
pt HOB raised to 35 degrees and given breakfast tray. Pt denies any pain or SOA at this time.
--- NOTE | 2021-06-11 07:54 | HMH.PHAINT ---
MEDICATION RECONCILIATION COMPLETED ON PATIENT USING EXTERNAL FILL HISTORY FROM PHARMACY AND LIST FROM PCP OFFICE. -AUSTYN ROUSSEAUD
[2021-06-11 09:02] LABS: CATHL Activated Clotting Time 343 SEC (74-125)
[2021-06-11 09:03] LABS: CATHL Activated Clotting Time 268 SEC (74-125)
--- NOTE | 2021-06-11 09:34 | HMH.HP ---
*Admission Date: 06/11/21 *Chief complaint: chest pain *History of present illness: 60-year-old male presented to the emergency room with STEMI. Dr. Desir was notified at that time and proceeded to take patient straight to the Annealing Furnace Operator. Patient underwent left heart catheterization immediately upon admission to the ED. Left heart catheterization revealed acute inferior lateral ST elevation myocardial infarction, successful mechanical aspiration followed by drug-eluting stent deployment to the proximal mid and distal dominant RCA and a continuous manner of 100% occlusion reduced to zero with 2 drug-eluting stents. EF was noted as 45 to 50% with inferior wall hypokinesis. Mildly elevated LVEDP. Patent JORGE to the LAD. Patient states upon arrival to the ED he started having a chest burning feeling which was also accompanied by left arm numbness which began approximately at 8:00 PM last evening. Patient denies shortness of breath during this episode. Patient states he has been dizzy for the past few days. Patient denies chest pain, tightness or pressure at this time. Patient denies shortness of breath. No swelling noted of the lower extremities. Patient denies palpitations. monitoring analyst reveals sinus bradycardia with a heart rate of 58 bpm. Blood pressure is stable. Patient does have history of coronary artery disease. Patient states he did undergo CABG x2 in 2015 at [facility]. Patient states it has been a long time since he has followed up with a literacy consultant. Patient does smoke at least 1 pack/day. Patient does have history of diabetes which is controlled. History of essential hypertension which is controlled. History of hyperlipidemia. Patient is on statin therapy. Echocardiogram will be obtained to assess LV function and valve status. Pending on the results of the echocardiogram, medication and treatment therapies may be recommended. Patient will be started on Brilinta 90 mg twice daily p.o. along with aspirin 81 mg p.o. daily. Patient is currently on lisinopril and metoprolol as home medications. We will plan to start the metoprolol this evening and lisinopril in the morning as long as patient is hemodynamically stable.- per cardiology [facility] History I have reviewed the patient's past medical history: Yes Medical History: Reports:: Arrhythmia, Coronary Artery Disease, Diabetes Mellitus Type 2, Hyperlipidemia, Hypertension, Myocardial Infarction Denies:: Cancer, Diabetes Mellitus Type 1, MRSA, Seizures *Have you ever received a pneumonia vaccine?: No *Have you received a flu vaccine this season?: No Other Medical History: Reports: Hypothyroidism, Thyroid Disease. Denies: Blood Transfusion Reaction Other Surgeries: Yes: CABG, Cardiac Catheterization, Cardiac Surgery, Colonoscopy, Coronary Stent, Thyroidectomy, Other (tumor removed from behind ear) Amputation: No Fractures: No - *Social History Last grade of school completed: High school graduate Smoking Status: Current every day smoker Tobacco Type: cigarettes # Packs/Day (cigarettes): 1 #Yrs smoked (if former smoker): 40 Alcohol Intake: never Substance Use Type: marijuana Last Used Substance: hours (ago) *Occupational Status:: unemployed Housing: house Household Members: spouse *Travel in the last 8 weeks: None Family Hx:: No significant family history Review of Systems - Review of Systems Review of systems:: pertinent systems reviewed and negative unless documented below - Constitutional Reports fatigue, Reports weakness, Denies body ache(s) - Eyes Denies blurry vision - ENT Denies abnormal hearing - *Cardiovascular Reports chest pain, Reports chest pain at rest, Reports chest pain with activity, Reports shortness of breath with activity, Reports radiating jaw, neck or arm pain - *Respiratory Denies change in phlegm color - *Gastrointestinal Denies abdominal pain - *Genitourinary Denies difficulty urinating - *Musculoskeletal Denie
--- NOTE | 2021-06-11 09:36 | HMH.PHAVTE ---
[facility] Pharmacy VTE Monitoring - Patient Demographics Admission date: 06/11/21 Report Date: 06/11/21 Time: 09:36 Allergies/Adverse Reactions: Patient Allergies No Known Allergies Allergy (Verified 09/08/20 10:45) Height: 1.83 m Weight: 81.647 kg Patient Problems: Current Active Problems ST elevation myocardial infarction (STEMI) (Acute) - VTE Risk Labs: VTE Related Lab Results Hgb 16.0 g/dL (14.1-18.0) 06/11/21 05:00 Hct 49.8 % (42.0-52.0) 06/11/21 05:00 Plt Count 260 K/mm3 (142-424) 06/11/21 05:00 BUN 11 mg/dl (9-20) 06/11/21 05:00 Creatinine 0.70 mg/dl (0.66-1.25) D 06/11/21 05:00 Estimated Creat Clear 133 mL/min (50-200) 06/11/21 05:00 Was VTE Risk Assessment Performed: Yes VTE Score: 3 VTE Risk Level: Low Risk Clinical Trial Participant: No - Prophylaxis VTE Prophylaxis Ordered?: Yes Types of VTE Prophylaxis: TEDS Knee High
--- NOTE | 2021-06-11 11:18 | CA_ITS ---
APPROVED REPORT EXAM: Comprehensive 2D, Doppler, and color-flow Echocardiogram Dress Cutter: Ching Feliciano RVT Ht: 6 ft 0 in Wt: 180lbs BSA: 2.04 BP: 114/69 mmHg Indications: STEMI,SP,DM,HTN,HLD,CABG,CAD,EF OF 45-50% ONCATH 06/10/21 2D Dimensions LVOT 2.08 cm (M/F) 1.5-2.5 LA Volume 32.20 mL LA Volume Index 15.86 mL/m2 (M/F) 16-34 M-Mode Dimensions RVDd 2.51 cm (0.9-2.6) LA Diam 4.16 cm (1.9-4.0) LVDd 4.55 cm (3.5-5.7) Ao Diam 3.10 cm (2.0-3.7) LVDs 3.72 cm (3.5-5.7) IVSd 1.26 cm (0.6-1.1) PWd 0.75 cm (0.6-1.1) EF (Teich) 37.90% FS 18.20% EDV (Teich) 94.90 mL TAPSE 1.75 (<1.7) ESV (Teich) 58.90 mL LV Diastology E Decel Time 180.00 (160-240 msec) E/A Ratio 3.1 MED E' 10.60 (< 7 cm/sec) E'/MED E' Ratio 9.41 (>14) LAT E' 8.10 (<10 cm/sec) E/LAT E' Ratio 12.31 (>14) Mitral Valve MV E Max Jaya. 100.00 (40-130 cm/s) MV A Velocity 32.00 (40-130 cm/s) E/A Ratio 3.08 MV Decel. Time 180.00 (160-240 ms) MV PHT 53.00 ms Pulmonary Valve PV Peak Velocity 75.00 (50-150 cm/s) Tricuspid Valve TR P. Velocity 227.00 cm/s RAP Estimate 10.00 mmHg RVSP 30.70 mmHg Left Ventricle Left atrium is mildly enlarged, left ventricle is normal size, mild concentric left ventricular hypertrophy, visually estimated ejection fraction 45%, there is marked hypokinesis involving the basal septum and inferior basal wall. Diastolic parameters are inconclusive. Right Ventricle Right atrium and right ventricle are mildly enlarged with normal contractility. Aortic Valve Aortic valve is thickened and calcified without Doppler evidence of aortic stenosis or aortic insufficiency. Mitral Valve Mitral valve leaflets are minimally thickened, there is mild mitral regurgitation. Tricuspid Valve Tricuspid valve grossly normal, there is mild tricuspid regurgitation, tricuspid regurgitation jet velocity is inadequate for calculation of the right ventricular systolic pressure. Pulmonic Valve Pulmonic valve is poorly visualized. Great Vessels Aortic root is normal size. Inferior vena cava is poorly visualized. Pericardium No significant pericardial effusion noted. Conclusion 1. Biatrial enlargement, normal left ventricular size, mild concentric left ventricular hypertrophy, visually estimated ejection fraction 45% with multiple segmental wall motion abnormality described above, diastolic parameters are inconclusive. 2. Mildly enlarged right ventricle with normal contractility. 3. Mild mitral and tricuspid regurgitation. 4. No significant pericardial effusion noted. 5. Inferior vena cava is poorly visualized. Electronically signed by : Flo De Santiago MD 06/11/2021 21:14:05
--- NOTE | 2021-06-11 11:58 | HMH.CNCARD ---
History of Present Illness Consult date: 06/11/21 Requesting physician: Gilmar Kendrick Chief complaint: STEMI History of present illness: 60-year-old male presented to the emergency room with STEMI. Dr. Desir was notified at that time and proceeded to take patient straight to the Casing Trimmer. Patient underwent left heart catheterization immediately upon admission to the ED. Left heart catheterization revealed acute inferior lateral ST elevation myocardial infarction, successful mechanical aspiration followed by drug-eluting stent deployment to the proximal mid and distal dominant RCA and a continuous manner of 100% occlusion reduced to zero with 2 drug-eluting stents. EF was noted as 45 to 50% with inferior wall hypokinesis. Mildly elevated LVEDP. Patent JORGE to the LAD. Patient states upon arrival to the ED he started having a chest burning feeling which was also accompanied by left arm numbness which began approximately at 8:00 PM last evening. Patient denies shortness of breath during this episode. Patient states he has been dizzy for the past few days. Patient denies chest pain, tightness or pressure at this time. Patient denies shortness of breath. No swelling noted of the lower extremities. Patient denies palpitations. emergency services director reveals sinus bradycardia with a heart rate of 58 bpm. Blood pressure is stable. Patient does have history of coronary artery disease. Patient states he did undergo CABG x2 in 2014 at [facility]. Patient states it has been a long time since he has followed up with a drywall metal stud worker. Patient does smoke at least 1 pack/day. Patient does have history of diabetes which is controlled. History of essential hypertension which is controlled. History of hyperlipidemia. Patient is on statin therapy. Echocardiogram will be obtained to assess LV function and valve status. Pending on the results of the echocardiogram, medication and treatment therapies may be recommended. Patient will be started on Brilinta 90 mg twice daily p.o. along with aspirin 81 mg p.o. daily. Patient is currently on lisinopril and metoprolol as home medications. We will plan to start the metoprolol this evening and lisinopril in the morning as long as patient is hemodynamically stable. [facility]:ANGIOGRAPHIC RESULTS The left main artery Has an ostial 60% stenosis and a distal 80% stenosis The left anterior descending artery Is proximally occluded. There appears to be a bifurcating moderate sized ramus intermedius vessel which originates off the left main artery and is widely patent The circumflex artery Is a nondominant vessel with a proximal 90% stenosis and subtotally occluded at mid segment with competitive flow identified from the saphenous vein graft The right coronary artery Is a large dominant vessel and occluded at mid segment with a large thrombosis. Following revascularization the proximal mid segments are widely patent with drug-eluting stents with excellent ARISTEO-3 inline flow into a large posterior descending and posterior lateral branch. The RUIZ ventriculogram reveals Preserved at 45 to 50% with mild inferior wall hypokinesis The left ventricular end-diastolic pressure 15 mmHg JORGE to the LAD widely patent Saphenous vein graft to the circumflex artery widely patent IMPRESSION Acute inferolateral ST elevation myocardial infarction as described above Successful mechanical aspiration followed by drug-eluting stent deployment to the proximal mid and distal dominant right coronary in a contiguous manner 100% occlusion reduced to 0% with 2 contiguous drug-eluting stents Preserved ejection fraction of 45 to 50% with inferior wall hypokinesis Mildly elevated LVEDP Patent JORGE to the LAD Patent saphenous vein graft to circumflex artery PLAN 1. Brilinta 90 twice daily plus aspirin 81 mg daily 2. LDL less than 55 to be achieved with high intensity statin 3. Avoidance of tobacco products 4. Supportive c
[2021-06-11 16:39] LABS: POC Glucose,Bedside 175 (70-110)
[2021-06-11 18:01] LABS: POC Glucose,Bedside 198 (70-110)
[2021-06-12] VITALS (7 sets, daily range): BP systolic 89–110; BP diastolic 43–56; PULSE 41–63; RESP 16–20; TEMP 36.7–37.1; O2SAT 96–98; BMI 24.3; BMI 24.1
--- NOTE | 2021-06-12 00:38 | PC.NURSE ---
This RN was made aware of pt bradying down into upper 30s. Upon assessment of pt, pt is asleep but easily arrousable. Manual HR of 44. Pt states I just feel very tired. Manual BP of 88/50. Thang notified of pt BP and HR. NNO at this time.
[2021-06-12 02:50] LABS: POC Glucose,Bedside 154 (70-110)
[2021-06-12 07:23] LABS: POC Glucose,Bedside 149 (70-110)
--- NOTE | 2021-06-12 07:47 | HMH.PNCARD ---
Subjective Date: 06/12/21 Time: 07:30 Principal diagnosis: STEMI Interval history: 60-year-old male presented to the emergency room with STEMI on 06/10/21. Dr. Desir was notified at that time and proceeded to take patient straight to the Inventory Control Assistant. Patient underwent left heart catheterization immediately upon admission to the ED. Left heart catheterization revealed acute inferior lateral ST elevation myocardial infarction, successful mechanical aspiration followed by drug-eluting stent deployment to the proximal mid and distal dominant RCA and a continuous manner of 100% occlusion reduced to zero with 2 drug-eluting stents. EF was noted as 45 to 50% with inferior wall hypokinesis. Mildly elevated LVEDP. Patent JORGE to the LAD. Patient denies chest pain, tightness or pressure at this time. Patient denies shortness of breath. No swelling noted of the lower extremities. Patient denies palpitations. timber selector reveals sinus bradycardia with a heart rate of 47 bpm. Blood pressure is hypotensive. Patient was started on Brilinta 90 mg twice daily p.o. along with aspirin 81 mg p.o. daily. Patient is currently on lisinopril and metoprolol as home medications. We will plan to start the metoprolol and lisinopril once patient is hemodynamically stable. Echocardiogram reveals EF 45% with multiple segmental wall motion abnormality. Mild MR and TR noted. Patient will need to remain in the hospital for at least another 24 hours due to his STEMI in which he remains in the timeframe of sudden from his STEMI. Please notify cardiology of any changes in patient status. Echo:Conclusion 1. Biatrial enlargement, normal left ventricular size, mild concentric left ventricular hypertrophy, visually estimated ejection fraction 45% with multiple segmental wall motion abnormality described above, diastolic parameters are inconclusive. 2. Mildly enlarged right ventricle with normal contractility. 3. Mild mitral and tricuspid regurgitation. 4. No significant pericardial effusion noted. 5. Inferior vena cava is poorly visualized. Exam Vital signs and Labs for Last 24 Hours: Temp Pulse Resp BP Pulse Ox 98.6 F 60 16 89/47 L 98 06/12/21 04:00 06/12/21 04:00 06/12/21 04:00 06/12/21 04:00 06/12/21 04:00 Laboratory Results - last 24 hr 06/11/21 00:08: Activated Clotting Time 268 H* 06/11/21 00:18: Activated Clotting Time 343 H* D 06/11/21 15:04: POC Glucose 175 H 06/11/21 17:54: POC Glucose 198 H 06/11/21 20:21: POC Glucose 154 H 06/12/21 06:35: POC Glucose 149 H I & O for Last 24 hours: Intake & Output 06/09/21 06/10/21 06/11/21 06/12/21 23:59 23:59 23:59 23:59 Intake Total 240 / 240 Output Total 350 / 350 Balance -110 / -110 Weight 180 lb 180 lb 180 lb 0.013 oz - Constitutional no acute distress, average body habitus, cooperative - *Routine HEENT Exam Head: Present: normocephalic ENT: Present: mucous membranes moist - *Routine Neck Exam Present: supple, full ROM, normal carotid upstroke. Absent: JVD, carotid bruit, lymphadenopathy - *Routine Respiratory Exam Present: accessory muscle use, CTA bilaterally. Absent: wheezes, crackles - *Routine Cardiovascular Exam Present: RRR, Normal S1, bradycardia. Absent: murmur - *Routine Abdominal Exam Present: soft, normoactive bowel sounds. Absent: distended, rebound, firm - *Routine Extremities Exam Present: full ROM, pulses intact, normal capillary refill. Absent: edema - Routine Back/Spine/Pelvis Exam Back/Spine: Present: full ROM. Absent: CVA tenderness - *Routine Skin Exam Present: intact, dry, warm, normal turgor. Absent: erythema - *Routine Neurological Exam Present: alert, oriented X3, CN II-XII intact, moving all extremities, normal speech - Routine Psychiatric Exam Present: normal affect, normal thought process, cooperative Progress Note: A&P (1) Hx of CABG Status: Acute (2) CAD (coronary artery
[2021-06-12 08:03] LABS: Chloride 106 mmol/L (98-107); Sodium 135 mmol/L (136-145)
[2021-06-12 08:04] LABS: Potassium 3.6 mmoL/L (3.5-5.1)
[2021-06-12 08:06] LABS: Blood Urea Nitrogen 8 mg/dl (9-20); Creatinine Clearance Estimated 103 mL/min (50-200); Estimated Glomerular Filt Rate 87 ml/min (>60); GFR (African American) 105 ML/MIN (>60)
[2021-06-12 08:07] LABS: Anion Gap 6.6 mEq/L (5-15); Calcium 8.2 mg/dl (8.4-10.2); Carbon Dioxide 26 mmol/L (22.0-30.0); Glucose 183 mg/dl (74-100)
[2021-06-12 08:12] LABS: Basophils # 0.1 K/mm3 (0-0.2); Basophils % 0.7 % (0.1-2.0); Eosinophils # 0.1 K/mm3 (0.0-0.4); Eosinophils % 0.8 % (0.1-12.0); Hematocrit 43.9 % (42.0-52.0); Hemoglobin 14.3 g/dL (14.1-18.0); Lymphocytes # 1.6 K/mm3 (0.7-4.5); Lymphocytes % 18.5 % (10-50); Magnesium 1.8 mg/dl (1.6-2.3); Mean Corpuscular HGB Conc 32.6 g/dL (31.8-35.4); Mean Corpuscular Hemoglobin 33.8 pg (27.0-31.2); Mean Corpuscular Volume 103.6 fl (80-94); Mean Platelet Volume 8.2 fl (7.4-10.4); Monocytes # 0.4 K/mm3 (0.1-1.0); Monocytes % 4.9 % (1.7-9.3); Neutrophils # 6.4 K/mm3 (1.8-7.8); Platelet Count 213 K/mm3 (142-424); Red Blood Count 4.23 M/mm3 (4.60-6.20); Red Cell Distribution Width 13.4 % (11.5-17.5); White Blood Count 8.5 K/mm3 (4.8-10.8)
[2021-06-12 11:11] LABS: Hemoglobin A1C 8.2 % (4.0-6.0)
--- NOTE | 2021-06-12 12:31 | HMH.ACPN2 ---
Internal Medicine - PN: Subj *Date: 06/12/21 *Time: 12:31 Interval history: pt feeling better but in sudden window and will remain till am - Exam Vital signs and Labs for Last 24 Hours: Temp Pulse Resp BP Pulse Ox 98.4 F 53 L 18 92/49 L 97 06/12/21 08:00 06/12/21 08:00 06/12/21 08:00 06/12/21 08:00 06/12/21 08:00 Laboratory Results - last 24 hr 06/11/21 15:04: POC Glucose 175 H 06/11/21 17:54: POC Glucose 198 H 06/11/21 20:21: POC Glucose 154 H 06/12/21 06:35: POC Glucose 149 H 06/12/21 06:55: Hemoglobin A1c 8.2 H 06/12/21 06:55: Magnesium 1.8 06/12/21 06:55: WBC 8.5 D, RBC 4.23 L, Hgb 14.3, Hct 43.9, MCV 103.6 H, MCH 33.8 H, MCHC 32.6, RDW 13.4, Plt Count 213, MPV 8.2, Neut % (Auto) 75.0, Lymph % (Auto) 18.5, [place] % (Auto) 4.9, Eos % (Auto) 0.8, Baso % (Auto) 0.7, Neut # (Auto) 6.4, Lymph # (Auto) 1.6, [place] # (Auto) 0.4, Eos # (Auto) 0.1, Baso # (Auto) 0.1 06/12/21 06:55: Sodium 135 L, Potassium 3.6, Chloride 106, Carbon Dioxide 26, Anion Gap 6.6, BUN 8 L D, Creatinine 0.90 D, Estimated Creat Clear 103, Estimated GFR 87, Est GFR ( Amer) 105 D, Glucose 183 H, Calcium 8.2 L I & O for Last 24 hours: Intake & Output 06/10/21 06/11/21 06/12/21 06/13/21 11:59 11:59 11:59 11:59 Intake Total 480 / 480 Output Total 350 / 350 Balance -350 / -350 480 / 480 Weight 180 lb 180 lb 0.013 oz - Constitutional no acute distress - *Routine HEENT Exam Head: Present: normocephalic Eye: Present: EOMI, PERRL ENT: Present: mucous membranes moist - *Routine Neck Exam Present: supple. Absent: JVD - *Routine Respiratory Exam Present: CTA bilaterally - *Routine Cardiovascular Exam Present: RRR - *Routine Abdominal Exam Present: soft - *Routine Extremities Exam Absent: calf tenderness - *Routine Skin Exam Present: intact - *Routine Neurological Exam Present: alert, CN II-XII intact - Routine Psychiatric Exam Present: normal affect Assessment and Plan (1) Hx of CABG Status: Acute Category: Surgical Code(s): Z95.1 - Presence of aortocoronary bypass graft (2) CAD (coronary artery disease) Status: Acute Category: Medical Code(s): I25.10 - Atherosclerotic heart disease of [place] coronary artery without angina pectoris (3) Diabetes Status: Acute Category: Medical Code(s): E11.9 - Type 2 diabetes mellitus without complications (4) HLD (hyperlipidemia) Status: Acute Category: Medical Code(s): E78.5 - Hyperlipidemia, unspecified (5) ST elevation myocardial infarction (STEMI) Status: Acute Qualifiers: Involved coronary artery: unspecified coronary artery Qualified Code(s): I21.3 - ST elevation (STEMI) myocardial infarction of unspecified site Category: Medical Code(s): I21.3 - ST elevation (STEMI) myocardial infarction of unspecified site (6) Tobacco abuse Status: Acute Category: Medical Code(s): Z72.0 - Tobacco use (7) History of heart attack Status: Chronic Category: Medical Code(s): I25.2 - Old myocardial infarction
[2021-06-13] VITALS: BP 107/50; PULSE 54; PULSE 60; RESP 16; TEMP 36.7; O2SAT 98
[2021-06-13 04:00] VITALS: BP 103/57; PULSE 50; PULSE 59; RESP 16; TEMP 37.1; O2SAT 97
[2021-06-13 06:25] LABS: POC Glucose,Bedside 166 (70-110)
[2021-06-13 08:00] VITALS: BP 106/68; PULSE 53; RESP 16; TEMP 36.9; O2SAT 97
--- NOTE | 2021-06-13 09:03 | HMH.DCSUM ---
General - General Admission date:: 06/10/21 Discharge date: 06/13/21 HPI HPI: 60-year-old male presented to the emergency room with STEMI. Dr. Desir was notified at that time and proceeded to take patient straight to the Copy Writer. Patient underwent left heart catheterization immediately upon admission to the ED. Left heart catheterization revealed acute inferior lateral ST elevation myocardial infarction, successful mechanical aspiration followed by drug-eluting stent deployment to the proximal mid and distal dominant RCA and a continuous manner of 100% occlusion reduced to zero with 2 drug-eluting stents. EF was noted as 45 to 50% with inferior wall hypokinesis. Mildly elevated LVEDP. Patent JORGE to the LAD. Patient states upon arrival to the ED he started having a chest burning feeling which was also accompanied by left arm numbness which began approximately at 8:00 PM last evening. Patient denies shortness of breath during this episode. Patient states he has been dizzy for the past few days. Patient denies chest pain, tightness or pressure at this time. Patient denies shortness of breath. No swelling noted of the lower extremities. Patient denies palpitations. hospital monitor reveals sinus bradycardia with a heart rate of 58 bpm. Blood pressure is stable. Patient does have history of coronary artery disease. Patient states he did undergo CABG x2 in 2015 at [facility]. Patient states it has been a long time since he has followed up with a small business director. Patient does smoke at least 1 pack/day. Patient does have history of diabetes which is controlled. History of essential hypertension which is controlled. History of hyperlipidemia. Patient is on statin therapy. Echocardiogram will be obtained to assess LV function and valve status. Pending on the results of the echocardiogram, medication and treatment therapies may be recommended. Patient will be started on Brilinta 90 mg twice daily p.o. along with aspirin 81 mg p.o. daily. Patient is currently on lisinopril and metoprolol as home medications. We will plan to start the metoprolol this evening and lisinopril in the morning as long as patient is hemodynamically stable.- per cardiology Hospital Course Hospital Course: Abnormal Lab Results 06/12/21 06:55: Hemoglobin A1c 8.2 H 06/13/21 06:14: POC Glucose 166 H echo: Conclusion 1. Biatrial enlargement, normal left ventricular size, mild concentric left ventricular hypertrophy, visually estimated ejection fraction 45% with multiple segmental wall motion abnormality described above, diastolic parameters are inconclusive. 2. Mildly enlarged right ventricle with normal contractility. 3. Mild mitral and tricuspid regurgitation. 4. No significant pericardial effusion noted. 5. Inferior vena cava is poorly visualized. Ordering Physician: Carter Desir MD Date of Service: 06/10/21 Procedure(s): [facility] w ventricle and grafts Accession Number(s): [id number] cc: Provider,Referral ; Carter Desir MD~ APPROVED REPORT Patient Location: Emergent Stage Manager: PANFILO Byrd RT (R) PROCEDURES Left heart catheterization Left ventriculogram Selective coronary angiogram Left internal mammary angiography Selective engagement of the saphenous vein graft to the circumflex artery Mechanical thrombectomy to the dominant right coronary artery followed by drug-eluting stent deployment to the proximal mid and distal vessel INDICATION Acute inferolateral ST elevation myocardial infarction, Coronary artery disease, History of coronary bypass surgery Informed consent was obtained prior to the procedure. COMPLICATIONS None Estimated Blood Loss: Less than 10 mls TECHNIQUE One percent lidocaine used to anesthetize the right groin. The right femoral artery was accessed via the Salinger technique and a 6 Dutch sheath was placed in
--- NOTE | 2021-06-13 09:05 | HMH.PNCARD ---
Subjective Date: 06/13/21 Time: 09:00 Principal diagnosis: STEMI Interval history: 60-year-old male presented to the emergency room with STEMI on 06/10/21. Left heart catheterization was performed. Left heart catheterization revealed acute inferior lateral ST elevation myocardial infarction, successful mechanical aspiration followed by drug-eluting stent deployment to the proximal mid and distal dominant RCA and a continuous manner of 100% occlusion reduced to zero with 2 drug-eluting stents. EF was noted as 45 to 50% with inferior wall hypokinesis. Mildly elevated LVEDP. Patent JORGE to the LAD. Patient denies chest pain, tightness or pressure at this time. Patient denies shortness of breath. No swelling noted of the lower extremities. Patient denies palpitations. athletic monitor reveals sinus bradycardia with a heart rate of 58 bpm. Blood pressure is stable though on low side. Patient was started on Brilinta 90 mg twice daily p.o. along with aspirin 81 mg p.o. daily. Patient is currently on lisinopril and metoprolol as home medications. Due to patient being hypotensive and bradycardic, we will defer starting lisinopril or metoprolol at this time. Patient will follow up with cardiology in 1 week and at that time, can recommend starting lisinopril and metoprolol if patient's heart rate and blood pressure are appropriate. Patient was instructed no heavy or exertional activity until follow-up with cardiology. Patient advised to stop smoking. Recommend cardiac rehab due to postop coronary stenting. Patient verbalized understanding. Overall patient states he is feeling much better. Patient is very anxious to go home. LHC:IMPRESSION Acute inferolateral ST elevation myocardial infarction as described above Successful mechanical aspiration followed by drug-eluting stent deployment to the proximal mid and distal dominant right coronary in a contiguous manner 100% occlusion reduced to 0% with 2 contiguous drug-eluting stents Preserved ejection fraction of 45 to 50% with inferior wall hypokinesis Mildly elevated LVEDP Patent JORGE to the LAD Patent saphenous vein graft to circumflex artery PLAN 1. Brilinta 90 twice daily plus aspirin 81 mg daily 2. LDL less than 55 to be achieved with high intensity statin 3. Avoidance of tobacco products 4. Supportive care for the next 48 hours 5. Start LOYD inhibitors and beta-blockers once hemodynamically stable 6. Continuous telemetry for at least the next 48 hours Echo:Conclusion 1. Biatrial enlargement, normal left ventricular size, mild concentric left ventricular hypertrophy, visually estimated ejection fraction 45% with multiple segmental wall motion abnormality described above, diastolic parameters are inconclusive. 2. Mildly enlarged right ventricle with normal contractility. 3. Mild mitral and tricuspid regurgitation. 4. No significant pericardial effusion noted. 5. Inferior vena cava is poorly visualized. Exam Vital signs and Labs for Last 24 Hours: Temp Pulse Resp BP Pulse Ox 98.5 F 53 L 16 106/68 L 97 06/13/21 08:00 06/13/21 08:00 06/13/21 08:00 06/13/21 08:00 06/13/21 08:00 Laboratory Results - last 24 hr 06/12/21 06:55: Hemoglobin A1c 8.2 H 06/13/21 06:14: POC Glucose 166 H I & O for Last 24 hours: Intake & Output 06/10/21 06/11/21 06/12/21 06/13/21 23:59 23:59 23:59 23:59 Intake Total 240 / 240 840 / 840 480 / 480 Output Total 350 / 350 0 / 0 Balance -110 / -110 840 / 840 480 / 480 Weight 180 lb 180 lb 178 lb 9.191 oz - Constitutional no acute distress, average body habitus, cooperative - *Routine HEENT Exam Head: Present: normocephalic ENT: Present: mucous membranes moist - *Routine Neck Exam Present: supple, full ROM, normal carotid upstroke. Absent: JVD, carotid bruit, lymphadenopathy - Routine Chest/Breast/Axilla Exam Chest wall: Present: tenderness. Absent: mass, pacemaker - *Routine Respirato
--- NOTE | 2021-06-13 10:19 | HMH.PHACLD ---
Nasir Hills has received discharge medication counseling on the following medications: -ASPIRIN (BLEED/BRUISE RISK, TAKE WITH FOOD). -BRILINTA (BLEED RISK, SEEK CARE IF BUMP HEAD OR SIGNS OF ACTIVE BLEED, COULD TAKE WITH FOOD) -ATORVASTATIN (STOP THE 40 MG AND START THE 80 MG, WATCH FOR MUSCLE PAIN AND CALL MD IF THIS OCCURS). -NITROGLYCERIN (WATCH FOR DIZZNESS, LIGHTHEADEDNESS, HEADACHE, TAKE ONLY NEEDED FOR CP) -METFORMIN (TAKE WITH FOOD, COULD CAUSE GI UPSET) -DISCUSSED STOPPING THE LISINOPRIL AND METOPROLOL
[2021-06-13 11:36] VITALS: BP 117/94; PULSE 51; RESP 16; TEMP 36.6; O2SAT 99
--- NOTE | 2021-06-13 11:43 | PC.NURSE ---
Pt's just arrived to transport pt home
[2021-06-13 12:06] LABS: POC Glucose,Bedside 200 (70-110)
[2021-06-13 12:06] LABS: POC Glucose,Bedside 148 (70-110)
[2021-06-13 12:06] LABS: POC Glucose,Bedside 156 (70-110)
== END 2021-06-13 11:47 | disposition home or self-care (01) | DRG 246 ==
LOC: ER 23:12 → 2ND 23:19
PROVIDERS: Internal Medicine; Urology; Admitting Provider Emergency Medicine; Emergency Provider Emergency Medicine; Visit Provider Emergency Medicine
PROC: 027035Z Dilation of Coronary Artery, One Artery with Two Drug-eluting Intraluminal Devices, Percutaneous Approach (ICD-10-PCS; principal; 2021-06-10 23:00)
DX: I21.11 ST elevation (STEMI) myocardial infarction involving right coronary artery (principal); I49.01 Ventricular fibrillation; Z95.1 Presence of aortocoronary bypass graft; Z95.5 Presence of coronary angioplasty implant and graft; I25.2 Old myocardial infarction; I25.10 Atherosclerotic heart disease of native coronary artery without angina pectoris; E11.9 Type 2 diabetes mellitus without complications; I10 Essential (primary) hypertension; F17.210 Nicotine dependence, cigarettes, uncomplicated; E78.5 Hyperlipidemia, unspecified; Z71.6 Tobacco abuse counseling; I25.82 Chronic total occlusion of coronary artery
CPT/HCPCS: 93459; C9607; 36415; 80048; 80061; 80076; 82962; 83036; 83735; 84484; 85007; 85025; 85347; 92943; 93005; 93306; 96374; 99152; 99284; C1725; C1760; C1769; C1874; C1876; C1894; C9803; J1644; J2405; Q9967; U0003; U0005

== ENCOUNTER → 2021-06-25 09:31 | Outpatient (CLI) | payer OTHER, SELFPAY ==
[2021-06-25 10:10] LABS: Hematocrit 52.3 % (42.0-52.0); Hemoglobin 16.7 g/dL (14.1-18.0)
[2021-06-25 11:32] LABS: Blood Urea Nitrogen 10 mg/dl (9-20); Estimated Glomerular Filt Rate 87 ml/min (>60); GFR (African American) 105 ML/MIN (>60)
== END ==
PROVIDERS: PCP Emergency Medicine; Visit Provider Internal Medicine
DX: Z01.812 Encounter for preprocedural laboratory examination (principal)
CPT/HCPCS: 36415; 82565; 84520; 85014; 85018

== ENCOUNTER → 2021-09-19 16:00 | Outpatient (CLI) | payer OTHER, SELFPAY ==
[2021-09-19 17:20] LABS: Basophils # 0.1 K/mm3 (0-0.2); Basophils % 0.8 % (0.1-2.0); Eosinophils # 0.1 K/mm3 (0.0-0.4); Eosinophils % 0.8 % (0.1-12.0); Hematocrit 52.1 % (42.0-52.0); Hemoglobin 17.4 g/dL (14.1-18.0); Lymphocytes # 1.3 K/mm3 (0.7-4.5); Lymphocytes % 14.2 % (10-50); Mean Corpuscular HGB Conc 33.4 g/dL (31.8-35.4); Mean Corpuscular Hemoglobin 33.5 pg (27.0-31.2); Mean Corpuscular Volume 100.2 fl (80-94); Monocytes # 0.4 K/mm3 (0.1-1.0); Monocytes % 3.8 % (1.7-9.3); Neutrophils # 7.4 K/mm3 (1.8-7.8); Neutrophils % 80.4 % (37.0-80.0); Platelet Count 315 K/mm3 (142-424); Red Cell Distribution Width 13.7 % (11.5-17.5); White Blood Count 9.2 K/mm3 (4.8-10.8)
[2021-09-19 18:45] LABS: Alanine Aminotransferase 55 U/L (12-78); Albumin Level 4.2 g/dl (3.5-5.0); Albumin/Globulin Ratio 1.6 (1.1-1.8); Alkaline Phosphatase 175 U/L (38-126); Aspartate Amino Transferase 34 U/L (17-59); Bilirubin,Total 0.8 mg/dl (0.2-1.3); Blood Urea Nitrogen 11 mg/dl (9-20); Carbon Dioxide 23 mmol/L (22.0-30.0); Chloride 99 mmol/L (98-107); Chol/HDL Ratio 4.8 (1-3.5); Cholesterol 129 mg/dl (140-200); Estimated Glomerular Filt Rate 99 ml/min (>60); GFR (African American) 120 ML/MIN (>60); Globulin 2.6 g/dL (1.3-3.2); Glucose 339 mg/dl (74-100); HDL Cholesterol 27 mg/dl (40-60); Sodium 135 mmol/L (136-145); Total Protein,Serum 6.8 g/dl (6.3-8.2); Triglycerides 171 mg/dl (30-150); VLDL Cholesterol 34 mg/dL (0-40)
[2021-09-19 18:57] LABS: Direct LDL Cholesterol 70.97 mg/dL (100-129)
[2021-09-19 19:01] LABS: Free T4 (Free Thyroxine) 1.17 ng/dl (0.78-2.19)
[2021-09-19 19:03] LABS: 25-OH Vitamin D, Total 21.6 ng/mL (30-100)
== END ==
PROVIDERS: Visit Provider Emergency Medicine
DX: E11.9 Type 2 diabetes mellitus without complications (principal); E55.9 Vitamin D deficiency, unspecified; Z12.5 Encounter for screening for malignant neoplasm of prostate; Z79.84 Long term (current) use of oral hypoglycemic drugs
CPT/HCPCS: 80053; 80061; 82306; 84439; 84443; 85025; G0103

== ENCOUNTER → 2021-12-19 14:10 | Outpatient (CLI) | payer OTHER, SELFPAY ==
[2021-12-19 14:32] LABS: Basophils # 0.2 K/mm3 (0-0.2); Basophils % 1.3 % (0.1-2.0); Eosinophils # 0.2 K/mm3 (0.0-0.4); Eosinophils % 1.5 % (0.1-12.0); Hematocrit 54.5 % (42.0-52.0); Hemoglobin 17.9 g/dL (14.1-18.0); Lymphocytes # 2.1 K/mm3 (0.7-4.5); Lymphocytes % 16.6 % (10-50); Mean Corpuscular HGB Conc 32.9 g/dL (31.8-35.4); Mean Corpuscular Hemoglobin 33.5 pg (27.0-31.2); Mean Corpuscular Volume 101.8 fl (80-94); Mean Platelet Volume 7.8 fl (7.4-10.4); Monocytes # 0.6 K/mm3 (0.1-1.0); Monocytes % 4.4 % (1.7-9.3); Neutrophils # 9.4 K/mm3 (1.8-7.8); Neutrophils % 76.1 % (37.0-80.0); Platelet Count 295 K/mm3 (142-424); Red Blood Count 5.36 M/mm3 (4.60-6.20); Red Cell Distribution Width 13.3 % (11.5-17.5); White Blood Count 12.4 K/mm3 (4.8-10.8)
[2021-12-19 15:08] LABS: Alanine Aminotransferase 46 U/L (12-78); Albumin Level 4.5 g/dl (3.5-5.0); Alkaline Phosphatase 216 U/L (38-126); Anion Gap 12.5 mEq/L (5-15); Aspartate Amino Transferase 36 U/L (17-59); Bilirubin,Direct 0.2 mg/dl (0.0-0.4); Bilirubin,Indirect 0.3 mg/dL (0.0-0.9); Bilirubin,Total 0.5 mg/dl (0.2-1.3); Bilirubin,Unconjugated 0.3 mg/dL (0.0-1.1); Blood Urea Nitrogen 13 mg/dl (9-20); Calcium 9.7 mg/dl (8.4-10.2); Carbon Dioxide 27 mmol/L (22.0-30.0); Chloride 102 mmol/L (98-107); Chol/HDL Ratio 5.2 (1-3.5); Cholesterol 145 mg/dl (140-200); Estimated Glomerular Filt Rate 86 ml/min (>60); GFR (African American) 105 ML/MIN (>60); Glucose 172 mg/dl (74-100); HDL Cholesterol 28 mg/dl (40-60); Potassium 4.5 mmoL/L (3.5-5.1); Sodium 137 mmol/L (136-145); Total Protein,Serum 7.2 g/dl (6.3-8.2); Triglycerides 167 mg/dl (30-150); VLDL Cholesterol 33 mg/dL (0-40)
[2021-12-21 09:47] LABS: Direct LDL Cholesterol 85 mg/dL (100-129)
== END ==
PROVIDERS: PCP Emergency Medicine; Visit Provider Nurse Practitioner
DX: I10 Essential (primary) hypertension (principal); E78.5 Hyperlipidemia, unspecified; Z95.5 Presence of coronary angioplasty implant and graft
CPT/HCPCS: 36415; 80048; 80061; 80076; 85025

== ENCOUNTER → 2021-12-31 07:51 | Outpatient (CLI) | payer OTHER, SELFPAY | PROVIDERS: PCP Emergency Medicine; Visit Provider Nurse Practitioner | DX: R06.00 Dyspnea, unspecified (principal) | CPT/HCPCS: 93306 ==

== ENCOUNTER → 2022-02-11 07:12 | Outpatient (CLI) | payer OTHER, SELFPAY ==
--- NOTE | 2022-02-11 | CA_ITS ---
APPROVED REPORT Exam: Pharmacologic Technologist: Prerna Perla Ht: 6 ft 0 in Wt: 181 lbs BSA: 2.04 m2 HR: 64 bpm BP: 139/77 mmHg Indications: Shortness of Breath Medical History Medications: Lisinopril,,,,, Aspirin,,,,, Metoprolol,,,,, Metformin,,,,, Gabapentin,,,,, Vitamin B12,,,,, Vitamin D3,,,,, Atorvastatin,,,,, Tramadol,,,,, CloPIdogrel,,,,, Nitroglycerin,,,,, EMpagliflozin,,,,, Stress Test Details Test: LEXISCAN HR Resting HR: 67 bpm Max Heart Rate (APMHR): 161.425294 bpm Max HR Achieved: 95 bpm Target HR (85% APMHR): 136.606846 bpm % of APMHR: 59.01 Recovery HR: 81 bpm BP Resting BP: 139.0/77.0 mmHg Max BP: 147.0/84.0 mmHg Recovery BP: 141.0/79.0 mmHg ECG Clinical Exercise duration: 04:00 min Highest Stage Achieved: Stress ECG Conclusion Symptoms: Shortness of air, chest tightness Arrhythmias/Ectopy: occasional PAC/PVC ST-T Changes: < 1.[address] changes Test Summary REST . . . . . . . Resting REST 09:59 . . 67 . 139/ 77 . . Stage 1 . . . . . . . Myoview Injected Stage 1 01:00 . . 85 . . . . Stage 2 . . . . . . . chest tightness Shortness of Breath Stage 2 01:00 . . 95 . 147/ 84 . . Stage 3 01:00 . . 91 . 142/ 80 . . Stage 4 01:00 . . 86 . 136/ 77 . Stop exercise at 04:00 RECOVERY 01:00 . . 84 . . . . RECOVERY 02:00 . . 80 . . . . RECOVERY 02:32 . . 82 . 141/ 79 . . Electronically signed by : Flo De Santiago MD 02/12/2022 07:04:09
--- NOTE | 2022-02-11 07:12 | NM_ITS ---
APPROVED REPORT Exam: Nuclear Stress Test Indication: SOB, CAD, CABG, HTN, DM, High cholesterol, Tobacco use Patient Location: Outpatient Stress Tech: Prerna Perla [place] Tech:Berta Rasmussen, ARRT, RT (R)(N) Ht: 6 ft 0 in Wt: 180 lbs HR: 67 bpm BP: 139/77 mmHg BSA: 2.04 m2 TID: 1.21 History: SOB, CAD, CABG, HTN, DM, High cholesterol, Tobacco use Procedure: Patient received a 0.4 mg of intravenous Lexiscan, resting heart rate 67 bpm, resting blood pressure 139/77 mmHg, with Lexiscan maximum heart rate achived was 95 bpm which is Less than 85 % of the maximum predicted heart rate and blood pressure was 147/94 mmHg. With Lexiscan, patient denied any complaint of chest pain. Electrocardiogram Resting electrocardiogram shows sinus rhythm, with Lexiscan there is less than 1.[address] segment depression noted from the baseline EKG. The EKG portion of the Lexiscan is nondiagnostic. Cardiac Stress and Resting SPECT Images: Cardiac Stress and Resting SPECT images were obtained using technetium 99m Myoview 29.1 mCi stress and 10.70 mCi at rest. History for analysis of segmental wall motion and calculation of the ejection fraction was present. Prone images were also obtained. Cardiac stress and rest SPECT images show fixed defect involving the inferior and posterior basal wall consistent with area of myocardial scarring without significant kayden-infarct ischemia, computer derived ejection fraction is 44% with mild inferior posterior basal wall hypokinesis. Right ventricle is normal size and contractility. Conclusion: 1. The EKG portion of the Lexiscan is nondiagnostic. 2. Scintigraphic evidence of extensive myocardial scarring involving the inferior posterior basal wall without significant kayden-infarct ischemia compared to ejection fraction of 44% with segmental wall motion abnormality described above, right ventricle is normal size and contractility. 3. Abnormal Lexiscan Myoview study. Electronically signed by : Flo De Santiago MD 02/12/2022 07:06:43
--- NOTE | 2022-02-11 09:35 | HMH.ITSHM ---
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 []TRAMADOL NITRO METOPROLOL LISINOPRIL GABAPENTIN FUROSEMIDE EMPAGLIFLOZIN DICLOFENAC VITAMIN B12 CLOPIDOGREL VITAMIN D3 ATORVASTATIN ASA
== END ==
PROVIDERS: PCP Emergency Medicine; Visit Provider Nurse Practitioner Family
DX: R06.00 Dyspnea, unspecified (principal); I25.10 Atherosclerotic heart disease of native coronary artery without angina pectoris; E13.69 Other specified diabetes mellitus with other specified complication; E78.49 Other hyperlipidemia; Z72.0 Tobacco use; Z95.1 Presence of aortocoronary bypass graft; Z95.5 Presence of coronary angioplasty implant and graft; Z79.84 Long term (current) use of oral hypoglycemic drugs
CPT/HCPCS: 78452; 93017; A9502; J2785

== ENCOUNTER → 2022-02-14 11:33 | Outpatient (CLI) | payer OTHER, SELFPAY ==
[2022-02-14 12:52] LABS: Hemoglobin A1C 8.1 % (4.0-6.0)
== END ==
PROVIDERS: PCP Emergency Medicine; Visit Provider Emergency Medicine
DX: E11.9 Type 2 diabetes mellitus without complications (principal); Z79.84 Long term (current) use of oral hypoglycemic drugs
CPT/HCPCS: 36415; 83036

== ENCOUNTER → 2022-02-27 12:49 | Outpatient (CLI) | payer OTHER, SELFPAY | PROVIDERS: PCP Emergency Medicine; Visit Provider Nurse Practitioner Family | DX: R06.09 Other forms of dyspnea (principal) | CPT/HCPCS: 94060; 94726; 94729 ==

== ENCOUNTER → 2022-08-07 12:18 | Outpatient (CLI) | payer OTHER, SELFPAY ==
--- NOTE | 2022-08-07 12:18 | MR_ITS ---
FINAL REPORT TECHNIQUE: Multiplanar and multisequence imaging of the lumbar spine was obtained without contrast. CLINICAL HISTORY: back pain lower back pain with tingling , and numbness down bilateral legs ddd COMPARISON: 10/06/2020 FINDINGS: There is normal alignment of the lumbar vertebral bodies. Vertebral body height is preserved. The spinal cord ends at the level of L1. There is normal signal intensity within the substance of the distal spinal cord. Bone marrow signal intensity is normal. No acute paraspinal abnormality is identified. L1-2: There is no focal disc herniation, central canal stenosis or neuroforaminal narrowing. L2-3: Mild facet osteoarthropathy. Mild annular disc bulge. No central canal stenosis. Minimal inferior right foraminal narrowing. No left foraminal narrowing. L3-4: There is no focal disc herniation, central canal stenosis or neuroforaminal narrowing. L4-5: Annular disc bulge with mild degenerative endplate changes. Stable annular fissure. Bilateral facet osteoarthropathy. Mild central canal stenosis, unchanged. No significant foraminal narrowing. L5-S1: Annular disc bulge. No central canal stenosis. No foraminal narrowing. IMPRESSION: Mild multilevel degenerative disc disease, overall similar to the prior study. Reviewed, Interpreted and Dictated by Cinthia Garcia MD Transcribed by Rianna Whitt Authenticated and [facility]
--- NOTE | 2022-08-07 12:18 | MR_ITS ---
FINAL REPORT TECHNIQUE: Multiplanar and multisequence imaging of the cervical spine was obtained. CLINICAL HISTORY: neck pain prior mri 03/04/2019 COMPARISON: 03/04/2019 FINDINGS: There is straightening of the normal cervical curvature which could be due to positioning or muscle spasm. Alignment is unchanged from the prior exam. Vertebral body height is preserved. Signal intensity within the substance of the spinal cord is normal. Bone marrow signal intensity is normal. Paraspinal soft tissues are within normal limits. C2/3: There is left facet osteoarthropathy with mild left neural foraminal narrowing, unchanged. C3/4: An annular disc bulge is present with, right greater than left, facet osteoarthropathy and severe right neural foraminal narrowing, unchanged. C4/5: An annular disc bulge is present with degenerative endplate changes and facet osteoarthropathy, unchanged. C5/6: An annular disc bulge is present with degenerative endplate changes and facet osteoarthropathy. There is very mild central canal stenosis and severe bilateral neural foraminal narrowing, unchanged. C6/7: An annular disc bulge is present with degenerative endplate changes and facet osteoarthropathy. There is mild right neural foraminal narrowing which has increased from the prior exam. C7/T1: There is no focal disc herniation, central stenosis or neural foraminal narrowing. IMPRESSION: Right neural foraminal narrowing at C6-7 which has worsened slightly. Otherwise stable multilevel degenerative disc disease. Reviewed, Interpreted and Dictated by Cinthia Garcia MD Transcribed by Naty Celis Authenticated and [facility]
== END ==
PROVIDERS: PCP Emergency Medicine; Visit Provider Emergency Medicine
DX: M54.2 Cervicalgia (principal); M54.50 Low back pain, unspecified
CPT/HCPCS: 72141; 72148; 76376

== ENCOUNTER → 2022-11-18 15:03 | Outpatient (POV) | payer OTHER, SELFPAY ==
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
[2022-11-18 15:40] VITALS: BP 141/92; PULSE 80; RESP 18; O2SAT 98; BMI 23.8
== END ==
PROVIDERS: PCP Emergency Medicine; Visit Provider Nurse Practitioner Family
DX: M47.26 Other spondylosis with radiculopathy, lumbar region (principal); M50.30 Other cervical disc degeneration, unspecified cervical region; M54.41 Lumbago with sciatica, right side; G89.29 Other chronic pain; M51.26 Other intervertebral disc displacement, lumbar region; M51.16 Intervertebral disc disorders with radiculopathy, lumbar region
CPT/HCPCS: 99202; 99212; G0463

== ENCOUNTER 2022-12-10 09:55 | Day surgery (SDC) | payer OTHER, SELFPAY ==
[2022-12-10 10:00] VITALS: BP 132/82; PULSE 89; RESP 18; O2SAT 98; BMI 24.4
[2022-12-10 10:05] VITALS: BP 132/85; PULSE 77; PULSE 79; RESP 18; O2SAT 97
[2022-12-10 10:13] VITALS: BP 129/91; PULSE 79; RESP 18; O2SAT 98
--- NOTE | 2022-12-10 10:16 | EXP.PAIN.PRO ---
Procedure Date: 12/10/22 Time: 10:10 Anesthesiologist:: Adama Ramesh CRNA Complications:: None Pre-procedure Diagnosis:: Degenerative disc lumbar spine multilevels. Lumbar radiculopathy Post-procedure Diagnosis:: Same Indications for Procedure:: Patient is a very pleasant 62-year-old male that comes our clinic today for a lumbar epidural steroid injection at the L4-5 level. Patient's lumbar MRI from 2020 demonstrates multilevel lumbar degenerative disc. Patient complains of low back pain as well as mild hip and leg radicular symptoms at times. He rates his pain 8/10. Procedure Details:: Procedure: Lumbar epidural steroid injection under fluoroscopy Informed consent was obtained and the risks and benefits of the procedure were explained to the patient. The patient was taken to the procedure room and noninvasive monitors placed, including noninvasive blood pressure cuff and pulse oximeter. The back was viewed using C-arm Fluoroscopy and prepped using Chloraprep as a cleansing solution and the L4-L5 interspace was palpated. Skin and subcutaneous tissues were anesthetized using lidocaine 1.5% and a 25-gauge needle. After this, an 18-gauge Touhy epidural needle was placed into the L4-L5 interspace and advanced using fluoroscopic guidance and loss of resistance to air until the epidural space was encountered. After confirmation of needle placement in the epidural space, with dye, a solution containing normal saline, 3 mL and Depo-Medrol 80 mg were incrementally injected into the lumbar epidural space. The patient tolerated the procedure well with no complications. The patient was observed in the Pain Clinic and then discharged home neurologically intact. Plan and Disposition:: Patient was discharged without incident.
== END 2022-12-10 10:13 | disposition home or self-care (01) ==
LOC: SC.PAINP 09:56
PROVIDERS: PCP Emergency Medicine; Visit Provider Nurse Anesthetist, Certified Registered
DX: M51.16 Intervertebral disc disorders with radiculopathy, lumbar region (principal)
CPT/HCPCS: 62323; J1040

== ENCOUNTER → 2022-12-16 23:22 | Outpatient (CLI) | payer OTHER, SELFPAY ==
[2022-12-16 19:02] LABS: Basophils # 0.1 K/mm3 (0-0.2); Basophils % 0.3 % (0.1-2.0); Eosinophils # 0.1 K/mm3 (0.0-0.4); Eosinophils % 0.8 % (0.1-12.0); Hematocrit 57.8 % (42.0-52.0); Lymphocytes # 2.1 K/mm3 (0.7-4.5); Mean Corpuscular HGB Conc 32.1 g/dL (31.8-35.4); Mean Corpuscular Hemoglobin 32.2 pg (27.0-31.2); Mean Corpuscular Volume 100.2 fl (80-94); Mean Platelet Volume 8.7 fl (7.4-10.4); Monocytes # 0.6 K/mm3 (0.1-1.0); Monocytes % 4.7 % (1.7-9.3); Neutrophils # 10.9 K/mm3 (1.8-7.8); Neutrophils % 79.2 % (37.0-80.0); Platelet Count 277 K/mm3 (142-424); Red Blood Count 5.77 M/mm3 (4.60-6.20); Red Cell Distribution Width 13.1 % (11.5-17.5); White Blood Count 13.8 K/mm3 (4.8-10.8)
[2022-12-16 19:08] LABS: Hemoglobin 18.6 g/dL (14.1-18.0)
[2022-12-16 19:23] LABS: Alanine Aminotransferase 60 U/L (12-78); Albumin Level 4.6 g/dl (3.5-5.0); Albumin/Globulin Ratio 1.4 (1.1-1.8); Alkaline Phosphatase 170 U/L (38-126); Anion Gap 18.4 mEq/L (5-15); Aspartate Amino Transferase 37 U/L (17-59); Bilirubin,Total 0.8 mg/dl (0.2-1.3); Blood Urea Nitrogen 19 mg/dl (9-20); Calcium 9.7 mg/dl (8.4-10.2); Carbon Dioxide 19 mmol/L (22.0-30.0); Chloride 102 mmol/L (98-107); Cholesterol 241 mg/dl (140-200); Estimated Glomerular Filt Rate 99 ml/min (>60); GFR (African American) 119 ML/MIN (>60); Globulin 3.3 g/dL (1.3-3.2); Glucose 239 mg/dl (74-100); HDL Cholesterol 30 mg/dl (40-60); Potassium 4.4 mmoL/L (3.5-5.1); Sodium 135 mmol/L (136-145); Total Protein,Serum 7.9 g/dl (6.3-8.2); Triglycerides 374 mg/dl (30-150); VLDL Cholesterol 75 mg/dL (0-40)
[2022-12-16 19:38] LABS: Direct LDL Cholesterol 147.94 mg/dL (100-129)
[2022-12-16 19:41] LABS: 25-OH Vitamin D, Total 42.9 ng/mL (30-100)
[2022-12-16 19:44] LABS: T4 (Thyroxine) 11.8 ug/dl (5.53-11.0)
[2022-12-16 19:52] LABS: Hemoglobin A1C 8.6 % (4.0-6.0)
[2022-12-16 19:57] LABS: Prostate Specific Ag Screen 1.1 ng/ml (0.0-4.0); Thyroid Stimulating Hormone 2.09 uIU/mL (0.465-4.68)
[2022-12-18 11:00] LABS: Testosterone,Total 384 ng/dL (264-916)
== END ==
PROVIDERS: PCP Emergency Medicine; Visit Provider Emergency Medicine
DX: E11.9 Type 2 diabetes mellitus without complications (principal); I10 Essential (primary) hypertension; E04.1 Nontoxic single thyroid nodule; Z79.84 Long term (current) use of oral hypoglycemic drugs; Z79.899 Other long term (current) drug therapy; Z72.0 Tobacco use; Z12.5 Encounter for screening for malignant neoplasm of prostate
CPT/HCPCS: 80053; 80061; 82306; 83036; 84403; 84436; 84443; 85025; G0103

== ENCOUNTER → 2023-01-01 13:11 | Outpatient (POV) | payer OTHER, SELFPAY ==
--- NOTE | 2023-01-01 13:37 | EXP.PAIN.SOA ---
[facility] Pain Management SOAP Note Subjective:: Patient is a pleasant 62-year-old male who presents today for follow-up of lumbar epidural steroid injection of L4-L5 on 12/10/2022. We are currently treating the patient for degenerative disc disease of cervical and lumbar spine with cervical and lumbar radiculopathy symptoms. Today he rates his pain a 7 out of 10. Patient denies any new trauma or injury. He does state that he had good relief lasting only 3 days following this injection. Patient rates approximately 20 to 50% relief. Patient does state that previously he has had injections that provided significant relief of upwards of 50% or more lasting a couple of months. Patient states during these times he has been able to move around easier and overall have more function. He does state he is back to his baseline today. Patient does state his pain is a constant achy, throbbing sensation that is worse with increased activity. It does interfere with his ability perform activities of daily living such as cooking or cleaning. 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 He does state that the pain goes into both his legs but does feel like the right is the worst side. Patient is currently managed with gabapentin 300 mg 3 times a day and [place] 5 mg 3 times a day from Dr. Kendrick's office. His Rod is [id number]. Its been reviewed and appropriate. Review of Systems: General: No recent weight changes, no fever, no sleep disturbances Respiratory: No cough, no shortness of air, no recurring pulmonary infections Cardiovascular/peripheral vascular: No chest pain, no palpitations, no edema, no shortness of breath Gastrointestinal: No new onset incontinence, normal bowel movements reported Genitourinary: No new onset incontinence Musculoskeletal: Low back pain, bilateral leg pain Psychiatric: [Normal mood/affect] Neurological: [Denies weakness in extremities], [denies balance issues] Objective:: Physical Exam: General: Alert and oriented x3, no acute distress, pleasant and cooperative Lungs: Respirations even and unlabored, symmetrical chest expansion Eyes: PERRL Musculoskeletal: Flexion and extension of lumbar [spine] somewhat guarded secondary to pain, [antalgic gait noted] Neurological: Speech clear, no gross sensory deficit Assessment:: Degenerative disc disease of cervical and lumbar spine with cervical and lumbar radiculopathy symptoms Plan:: Patient continues to experience significant pain at his low back with radiating symptoms to his bilateral lower extremities. Patient had limited range of motion of his lumbar spine during today's visit. I have counseled the patient that he may benefit from a repeat lumbar epidural steroid injection. Risk and benefits were explained to the patient and he would like to proceed forward with this plan of care. Patient is not on any blood thinners. I will also order the patient baclofen 10 mg twice daily and provide a 14-day supply of this medication. I have counseled the patient to contact our office if it does provide significant improvement and he would like refills before her next appointment. Patient will be scheduled for an LESI L3-4 through L5. Patient has been instructed to contact the clinic with any concerns before the next appointment. Dr. Lang has reviewed this note and agrees with this plan of care. This note was dictated using voice recognition software and make contain errors or omissions. [facility] Disclaimer: The information contained in this section may have been updated after the patient was seen, as this information can be updated by other users. Medical History CAD (coronary artery disease) JUN 2021-Acute inferolateral ST elevation myocardial infarction as described above Successful mechanical aspiration followed by drug-eluting stent deployment to the proximal mi
[2023-01-01 13:55] VITALS: BP 111/70; PULSE 74; RESP 18; O2SAT 98; BMI 23.7
== END | disposition home or self-care (01) ==
PROVIDERS: PCP Emergency Medicine; Visit Provider Nurse Practitioner Family
DX: M50.10 Cervical disc disorder with radiculopathy, unspecified cervical region (principal); M51.16 Intervertebral disc disorders with radiculopathy, lumbar region
CPT/HCPCS: 99212; G0463

== ENCOUNTER 2023-01-14 09:05 | Day surgery (SDC) | payer OTHER, SELFPAY ==
[2023-01-14 09:14] VITALS: BP 142/80; PULSE 68; RESP 17; TEMP 36.2; O2SAT 99; BMI 23.0
[2023-01-14 09:46] VITALS: BP 143/76; PULSE 65; RESP 18; O2SAT 97
[2023-01-14 09:47] VITALS: BP 143/76; PULSE 68; RESP 18; O2SAT 97
--- NOTE | 2023-01-14 09:59 | P.PCN_ITS ---
Procedure Date: 01/14/23 Time: 09:45 Anesthesiologist:: Adama Ramesh CRNA Complications:: None Pre-procedure Diagnosis:: Degenerative disc lumbar spine multilevels. Lumbar radiculopathy. Post-procedure Diagnosis:: Same. Indications for Procedure:: Patient is a very pleasant 62-year-old male that comes our clinic today for lumbar epidural steroid injection at L4-5 level. Patient has had 1 previous lumbar epidural steroid injection same level 2 months ago. He reports minimum to moderate improvement in his overall low back pain as well as bilateral hip and leg radicular symptoms for 7 days. Otherwise, pain returned in its entirety. He complains of low back pain as well as bilateral hip and leg radicular symptoms. He rates his pain 710 Procedure Details:: Procedure: Lumbar epidural steroid injection under fluoroscopy Informed consent was obtained and the risks and benefits of the procedure were explained to the patient. The patient was taken to the procedure room and noninvasive monitors placed, including noninvasive blood pressure cuff and pulse oximeter. The back was viewed using C-arm Fluoroscopy and prepped using Chloraprep as a cleansing solution and the L4-L5 interspace was palpated. Skin and subcutaneous tissues were anesthetized using lidocaine 1.5% and a 25-gauge needle. After this, an 18-gauge Touhy epidural needle was placed into the L4-L5 interspace and advanced using fluoroscopic guidance and loss of resistance to air until the epidural space was encountered. After confirmation of needle placement in the epidural space, with dye, a solution containing normal saline, 3 mL and Depo-Medrol 80 mg were incrementally injected into the lumbar epidural space. The patient tolerated the procedure well with no complications. The patient was observed in the Pain Clinic and then discharged home neurologica lly intact. Plan and Disposition:: Patient was discharged without incident.
[2023-01-14 10:00] VITALS: BP 154/79; PULSE 64; RESP 20
== END 2023-01-14 10:00 | disposition home or self-care (01) ==
PROVIDERS: PCP Emergency Medicine; Visit Provider Nurse Anesthetist, Certified Registered
DX: M51.16 Intervertebral disc disorders with radiculopathy, lumbar region (principal)
CPT/HCPCS: 62323; J1040

== ENCOUNTER → 2023-01-29 13:48 | Outpatient (POV) | payer OTHER, SELFPAY ==
--- NOTE | 2023-01-29 14:21 | EXP.PAIN.SOA ---
[facility] Pain Management SOAP Note Subjective:: Patient is a pleasant 62-year-old male who presents today for follow-up of lumbar epidural L4-L5 on 01/14/2023. We are currently treating the patient for degenerative disc disease of cervical and lumbar spine with cervical and lumbar radiculopathy symptoms. Today he states that he did have improvement with his epidural that it did take away his leg symptoms and that they have done much better. Today he states his pain is a 7 out of 10 now and that it is more related to to his low back and neck pain. Patient denies any new trauma or injury. He states that the low back is what bothers him the most. He does describe this as an aching, throbbing sensation that is worse with certain movements such as bending, twisting or lifting. Patient states the pain does interfere with his ability perform activities of daily living such as cooking and cleaning. Patient is currently managed with gabapentin 300 mg 3 times a day and Forest 5 mg 3 times a day from Dr. Kendrick's office. He denies any side effects from this medication. Patient was tried on baclofen 10 mg twice daily with a 14-day supply of this medication at his last visit. Patient is on Plavix that is written by Dr. Desir's office. Patient's Rod is [id number]. Its been reviewed and appropriate. Review of Systems: General: No recent weight changes, no fever, no sleep disturbances Respiratory: No cough, no shortness of air, no recurring pulmonary infections Cardiovascular/peripheral vascular: No chest pain, no palpitations, no edema, no shortness of breath Gastrointestinal: No new onset incontinence, normal bowel movements reported Genitourinary: No new onset incontinence Musculoskeletal: Low back pain Psychiatric: [Normal mood/affect] Neurological: [Denies weakness in extremities], [denies balance issues] Objective:: Physical Exam: General: Alert and oriented x3, no acute distress, pleasant and cooperative Lungs: Respirations even and unlabored, symmetrical chest expansion Eyes: PERRL Musculoskeletal: Flexion and extension of lumbar [spine] somewhat guarded secondary to pain, [antalgic gait noted] positive Kemps test Neurological: Speech clear, no gross sensory deficit Assessment:: Degenerative disc disease of cervical and lumbar spine with cervical and lumbar radiculopathy symptoms, lumbar facet arthropathy Plan:: Patient is experiencing significant pain in his low back with limited range of motion. 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 I have discussed with the patient that he may benefit from a lumbar medial branch block. Risk and benefits were explained to the patient and would like to proceed forward with this plan of care. Patient is on Plavix and I have counseled the patient that we will have to stop this medication prior to these injections. We will contact Dr. Desir's office and confirm he can come off these medications prior to this injection. Patient will be scheduled for a lumbar medial branch block bilaterally L4-L5 and L5-S1. Patient has been instructed to contact the clinic with any concerns before the next appointment. Dr. Lang has reviewed this note and agrees with this plan of care. This note was dictated using voice recognition software and make contain errors or omissions. [facility] Disclaimer: The information contained in this section may have been updated after the patient was seen, as this information can be updated by other users. Medical History CAD (coronary artery disease) JUN 2021-Acute inferolateral ST elevation myocardial infarction as described above Successful mechanical aspiration followed by drug-eluting stent deployment to the proximal mid and distal dominant right coronary in a contiguous manner 100% occlusion reduced to 0% with 2 contiguous drug-eluting stents
[2023-01-29 14:24] VITALS: BP 124/82; PULSE 83; RESP 18; O2SAT 96; BMI 23.0
== END ==
PROVIDERS: PCP Emergency Medicine; Visit Provider Nurse Practitioner Family
DX: M47.896 Other spondylosis, lumbar region (principal); M51.16 Intervertebral disc disorders with radiculopathy, lumbar region; M50.10 Cervical disc disorder with radiculopathy, unspecified cervical region
CPT/HCPCS: 99212; G0463

== ENCOUNTER 2023-02-11 11:14 | Day surgery (SDC) | payer OTHER, SELFPAY ==
[2023-02-11 11:26] VITALS: BP 142/91; PULSE 73; RESP 18; TEMP 36.6; O2SAT 98; BMI 23.7
[2023-02-11 11:41] VITALS: BP 138/81; PULSE 66; RESP 18; O2SAT 97
[2023-02-11 11:44] VITALS: BP 138/81; PULSE 70; RESP 18; O2SAT 97
[2023-02-11 11:45] VITALS: BP 155/84; PULSE 59; RESP 18; O2SAT 98
--- NOTE | 2023-02-11 11:53 | P.PCN_ITS ---
Procedure Date: 02/11/23 Time: 11:40 Anesthesiologist:: Adama Ramesh CRNA Complications:: None Pre-procedure Diagnosis:: Degenerative disc disease lumbar spine multilevels. Lumbar radiculopathy. Lumbar spondylosis. Multilevel lumbar facet arthropathy. Post-procedure Diagnosis:: Same. Indications for Procedure:: Patient is a very pleasant 62-year-old male that comes our clinic today for L4- 5, L5-S1 medial branch block/facet injections. Patient describes low back pain as constant, dull, aching. Patient has difficulty standing and/or ambulating for any length of time secondary to intense low back pain. He rates his pain 8/10. Patient also reports difficulty with flexion, extension, left and right rotation. Procedure Details:: Informed consent was obtained and the risk and benefits of the procedure was explained to the patient. Patient was taken to the procedure room where noninvasive monitors were placed, including noninvasive blood pressure cuff as well as pulse oximeter. The area over the lumbar spine was cleansed using chlorhexidine as a cleansing solution. I anesthetized the skin and subcutaneous tissues with 1% Lidocaine. I placed 22-gauge spinal needles into the facet joint/ medial branches of L4-L5, and L5-S1] bilaterally. Needle placement was confirmed with fluoroscopy. After confirmation of needle placement, each site was injected with 1 mL of 1% lidocaine and 0.25 % Marcaine and 10 mg of Depo- Medrol. A total of 80 mg of depo medrol was used for bilateral medial branch blocks of L4-L5, and L5-S1] bilaterally. Patient tolerated the procedure without difficulty. There were no complications. Plan and Disposition:: Patient was discharged without incident.
== END 2023-02-11 11:45 | disposition home or self-care (01) ==
LOC: SC.PAINP 11:14
PROVIDERS: PCP Emergency Medicine; Visit Provider Nurse Anesthetist, Certified Registered
DX: M47.896 Other spondylosis, lumbar region (principal); M51.16 Intervertebral disc disorders with radiculopathy, lumbar region
CPT/HCPCS: 64493; 64494; J1040

== ENCOUNTER → 2023-03-17 14:32 | Outpatient (POV) | payer OTHER, SELFPAY ==
--- NOTE | 2023-03-17 14:43 | EXP.PAIN.SOA ---
[facility] Pain Management SOAP Note Subjective:: Patient is a pleasant 62-year-old male who presents today for follow-up of lumbar medial branch block bilaterally L4-L5 and L5-S1 on 02/11/2023. We are currently treating the patient for degenerative disc disease of cervical and lumbar spine with cervical and lumbar radiculopathy symptoms, lumbar facet arthropathy. Today he rates his pain a 5 out of 10. Patient denies any new trauma or injury from his last visit. He does state that he has had at least 50% improvement following this injection and feels like it is still continuing to provide relief. He states he has been able to increase his activity with decreased pain symptoms and feels overall more functional. Patient is currently managed with gabapentin 300 mg 3 times a day and Foley 5 mg 3 times a day from Dr. Kendrick's office. He denies any side effects from this medication. His Rod is unavailable at this time. Review of Systems: General: No recent weight changes, no fever, no sleep disturbances Respiratory: No cough, no shortness of air, no recurring pulmonary infections Cardiovascular/peripheral vascular: No chest pain, no palpitations, no edema, no shortness of breath Gastrointestinal: No new onset incontinence, normal bowel movements reported Genitourinary: No new onset incontinence Musculoskeletal: Low back pain Psychiatric: [Normal mood/affect] Neurological: [Denies weakness in extremities], [denies balance issues] Objective:: Physical Exam: General: Alert and oriented x3, no acute distress, pleasant and cooperative Lungs: Respirations even and unlabored, symmetrical chest expansion Eyes: PERRL Musculoskeletal: Flexion and extension of lumbar [spine] somewhat guarded secondary to pain, [antalgic gait noted] Neurological: Speech clear, no gross sensory deficit Assessment:: Degenerative disc disease of cervical and lumbar spine with cervical and lumbar radiculopathy symptoms, lumbar facet arthropathy Plan:: Patient has had significant improvement following his lumbar medial branch block and does not require any additional injective therapy at this time. I have discussed with the patient in future when his pain starts being more bothersome that we will look at doing a second lumbar medial branch block with the plan to proceed forward with a lumbar ablation in the future. Patient will return in 1 month for reevaluation of symptoms and plan of care. Patient has been instructed to contact the clinic with any concerns before the next appointment. Dr. Lang has reviewed this note and agrees with this plan of care. This note was dictated using voice recognition software and make contain errors or omissions. [facility] Disclaimer: The information contained in this section may have been updated after the patient was seen, as this information can be updated by other users. Medical History CAD (coronary artery disease) JUN 2021-Acute inferolateral ST elevation myocardial infarction as described above Successful mechanical aspiration followed by drug-eluting stent deployment to the proximal mid and distal dominant right coronary in a contiguous manner 100% occlusion reduced to 0% with 2 contiguous drug-eluting stents Preserved ejection fraction of 45 to 50% with inferior wall hypokinesis Mildly elevated LVEDP Patent JORGE to the LAD Patent saphenous vein graft to circumflex artery Heel pain, bilateral History of heart attack Hypertension Low back pain radiating to left lower extremity Family History Other No significant family history Social History Smoking Status: Current every day smoker tobacco type: cigarettes packs per day: 1 alcohol intake: never substance use type: marijuana current occupational status: unemployed Travel in the last 8 weeks: None yasmin
[2023-03-17 14:52] VITALS: BP 137/85; PULSE 71; RESP 18; O2SAT 98; BMI 23.7
== END ==
PROVIDERS: Visit Provider Nurse Practitioner Family
DX: M50.10 Cervical disc disorder with radiculopathy, unspecified cervical region (principal); M51.16 Intervertebral disc disorders with radiculopathy, lumbar region; M47.26 Other spondylosis with radiculopathy, lumbar region
CPT/HCPCS: 99212; G0463

== ENCOUNTER 2023-08-01 18:56 | Outpatient (CLI) | payer OTHER, SELFPAY ==
[2023-08-01 18:19] LABS: Basophils # 0.1 K/mm3 (0-0.2); Basophils % 0.7 % (0.1-2.0); Eosinophils # 0.1 K/mm3 (0.0-0.4); Eosinophils % 1.1 % (0.1-12.0); Hematocrit 55.5 % (42.0-52.0); Lymphocytes # 1.6 K/mm3 (0.7-4.5); Lymphocytes % 19.8 % (10-50); Mean Corpuscular HGB Conc 32.6 g/dL (31.8-35.4); Mean Corpuscular Hemoglobin 33.7 pg (27.0-31.2); Mean Corpuscular Volume 103.5 fl (80-94); Mean Platelet Volume 9.1 fl (7.4-10.4); Monocytes # 0.4 K/mm3 (0.1-1.0); Monocytes % 4.5 % (1.7-9.3); Neutrophils # 6.1 K/mm3 (1.8-7.8); Neutrophils % 73.9 % (37.0-80.0); Platelet Count 267 K/mm3 (142-424); Red Blood Count 5.36 M/mm3 (4.60-6.20); Red Cell Distribution Width 13.3 % (11.5-17.5); White Blood Count 8.2 K/mm3 (4.8-10.8)
[2023-08-01 18:31] LABS: Hemoglobin 18.1 g/dL (14.1-18.0)
[2023-08-01 19:01] LABS: Hemoglobin A1C 9.4 % (4.0-6.0)
[2023-08-01 19:09] LABS: Chloride 105 mmol/L (98-107); Sodium 138 mmol/L (136-145)
[2023-08-01 19:12] LABS: Alanine Aminotransferase 25 U/L (12-78); Albumin Level 4.2 g/dl (3.5-5.0); Albumin/Globulin Ratio 1.6 (1.1-1.8); Alkaline Phosphatase 163 U/L (38-126); Aspartate Amino Transferase 25 U/L (17-59); Bilirubin,Total 0.9 mg/dl (0.2-1.3); Blood Urea Nitrogen 7 mg/dl (9-20); Calcium 9.2 mg/dl (8.4-10.2); Carbon Dioxide 26 mmol/L (22.0-30.0); Chol/HDL Ratio 8.5 (1-3.5); Cholesterol 237 mg/dl (140-200); Estimated Glomerular Filt Rate 98 ml/min (>60); GFR (African American) 119 ML/MIN (>60); Globulin 2.7 g/dL (1.3-3.2); Glucose 184 mg/dl (74-100); HDL Cholesterol 28 mg/dl (40-60); Total Protein,Serum 6.9 g/dl (6.3-8.2); Triglycerides 224 mg/dl (30-150); VLDL Cholesterol 45 mg/dL (0-40)
[2023-08-01 19:24] LABS: Direct LDL Cholesterol 159.32 mg/dL (100-129)
[2023-08-01 19:30] LABS: 25-OH Vitamin D, Total 26.9 ng/mL (30-100)
[2023-08-01 19:35] LABS: Free T4 (Free Thyroxine) 1.73 ng/dl (0.78-2.19)
[2023-08-01 19:45] LABS: Thyroid Stimulating Hormone 1.08 uIU/mL (0.465-4.68)
== END 2023-08-01 23:59 ==
LOC: LAB.DROPOF 18:56
PROVIDERS: PCP Internal Medicine; Visit Provider Internal Medicine
DX: E11.9 Type 2 diabetes mellitus without complications (principal); I10 Essential (primary) hypertension; E55.9 Vitamin D deficiency, unspecified; E78.5 Hyperlipidemia, unspecified; F17.210 Nicotine dependence, cigarettes, uncomplicated; Z79.84 Long term (current) use of oral hypoglycemic drugs; Z79.899 Other long term (current) drug therapy
CPT/HCPCS: 80053; 80061; 82306; 83036; 84439; 84443; 85025

== ENCOUNTER 2023-08-21 13:53 | Outpatient (POV) | payer OTHER, SELFPAY ==
[2023-08-21 14:03] VITALS: BP 137/83; PULSE 82; RESP 18; O2SAT 98; BMI 23.4
--- NOTE | 2023-08-21 14:11 | EXP.PAIN.SOA ---
[facility] Pain Management SOAP Note Subjective:: Patient is a pleasant 63-year-old male who presents today for follow-up. Today he rates his pain a 8 out of 10. Patient denies any new trauma or injury. He does state that all his pain is there at his low back and denies any radiating symptoms into his lower extremities. Patient describes this as a constant aching, throbbing sensation that is worse with increased activity or ambulation. He does state certain movements such as bending, twisting or lifting seem to aggravate his symptoms. Patient does state the pain is interfering with his ability to perform activities of daily living such as cooking and cleaning. Patient states that he only started experiencing more of this pain over the last 2 weeks. Patient did previously have a lumbar medial branch block that did provide at least 50% improvement and lasted nearly 6 months. Patient is interested in repeating this injection. his Rod has been reviewed and is appropriate. Review of Systems: General: No recent weight changes, no fever, no sleep disturbances Respiratory: No cough, no shortness of air, no recurring pulmonary infections Cardiovascular/peripheral vascular: No chest pain, no palpitations, no edema, no shortness of breath Gastrointestinal: No new onset incontinence, normal bowel movements reported Genitourinary: No new onset incontinence Musculoskeletal: Low back pain Psychiatric: [Normal mood/affect] Neurological: [Denies weakness in extremities], [denies balance issues] Objective:: Physical Exam: General: Alert and oriented x3, no acute distress, pleasant and cooperative Lungs: Respirations even and unlabored, symmetrical chest expansion Eyes: PERRL Musculoskeletal: Flexion and extension of lumbar [spine] somewhat guarded secondary to pain, [antalgic gait noted] positive Kemps test Neurological: Speech clear, no gross sensory deficit Assessment:: Degenerative disc disease of cervical and lumbar spine with cervical and lumbar radiculopathy symptoms, cervical facet arthropathy Plan:: Patient is experiencing worsening pain in his low back with limited range of motion of his lumbar spine and a positive Kemps test. Patient did have at least 50% improvement with his last medial branch block that did provide approximately 6 months worth of relief. I have discussed with patient that he may benefit from a repeat lumbar medial branch block. Risk and benefits were discussed with patient and he would like to proceed forward with this plan of care. Patient has tried and failed conservative therapy. Patient is not on any blood thinners. I have also discussed with the patient that in future if he has again significant relief with his second block that we will plan on doing a lumbar RFA at a later date. Patient acknowledges understanding. He will be scheduled for a lumbar medial branch block bilaterally L4-L5 and L5-S1 under fluoroscopy. Patient has been instructed to contact the clinic with any concerns before the next appointment. Dr. Lang has reviewed this note and agrees with this plan of care. This note was dictated using voice recognition software and make contain errors or omissions. [facility] Disclaimer: The information contained in this section may have been updated after the patient was seen, as this information can be updated by other users. Medical History Routine lab draw CAD (coronary artery disease) Low back pain radiating to left lower extremity Heel pain, bilateral Hypertension History of heart attack Family History Other No significant family history Social History Smoking Status: Current every day smoker tobacco type: cigarettes packs per day: 1 alcohol intake: never substance use type: marijuana current occupational status: other Travel in the last 8 weeks: None household members: spouse housing: house current occupation: laid off current occupational exposures/hazards: No caffeine: Yes
== END 2023-08-21 23:59 ==
LOC: SC.PAIN 13:54
PROVIDERS: PCP Internal Medicine; Visit Provider Nurse Practitioner Family
DX: M50.10 Cervical disc disorder with radiculopathy, unspecified cervical region (principal); M51.16 Intervertebral disc disorders with radiculopathy, lumbar region; M47.22 Other spondylosis with radiculopathy, cervical region
CPT/HCPCS: 99212; G0463

== ENCOUNTER 2023-09-09 10:42 | Day surgery (SDC) | payer OTHER, SELFPAY ==
[2023-09-09 11:00] VITALS: BP 130/84; PULSE 72; RESP 18; TEMP 36.7; O2SAT 100; BMI 23.7
[2023-09-09 11:03] VITALS: BP 134/77; PULSE 73; RESP 18; O2SAT 98
[2023-09-09] MEDS: LIDOCAINE 1% 5ML PF VIAL 5 ML (11:04)
[2023-09-09] MEDS: BUPIVACAINE 0.25% 10ML INJ 25 MG IJ (11:04)
[2023-09-09] MEDS: methylPREDNISolone ACETATE 80MG/ML VIAL 80 MG (11:04)
[2023-09-09 11:12] VITALS: BP 151/82; PULSE 68; RESP 18; TEMP 36.7; O2SAT 100
--- NOTE | 2023-09-09 11:16 | P.PCN_ITS ---
Procedure Date: 09/09/23 Time: 11:00 Anesthesiologist:: Adama Ramesh CRNA Complications:: None Pre-procedure Diagnosis:: Degenerative disc lumbar spine multilevels. Lumbar radiculopathy. Lumbar facet arthropathy. Lumbar spondylosis Post-procedure Diagnosis:: Same. Indications for Procedure:: Patient is a very pleasant 63-year-old male comes our clinic today for a trial #2 of medial branch block lumbar spine bilaterally L4-5, L5-S1. Trial #1 was extremely successful. Patient reports 4 to 6 months of significant improvement terms of his overall low back pain with flexion, extension, left and right rotation. He rates his pain today 5/10. Procedure Details:: Informed consent was obtained and the risk and benefits of the procedure was explained to the patient. Patient was taken to the procedure room where noninvasive monitors were placed, including noninvasive blood pressure cuff as well as pulse oximeter. The area over the lumbar spine was cleansed using chlorhexidine as a cleansing solution. I anesthetized the skin and subcutaneous tissues with 1% Lidocaine. I placed 22-gauge spinal needles into the facet joint/ medial branches ofL4-L5, and L5-S1] bilaterally. Needle placement was confirmed with fluoroscopy. After confirmation of needle placement, each site was injected with 1 mL of 1% lidocaine and 0.25 % Marcaine and 10 mg of Depo- Medrol. A total of 80 mg of depo medrol was used for bilateral medial branch blocks of L4-L5, and L5-S1] bilaterally. Patient tolerated the procedure without difficulty. There were no complications. Plan and Disposition:: Patient was discharged without incident.
--- NOTE | 2023-09-09 11:19 | P.PCN_ITS ---
Procedure Date: 09/09/23 Time: 11:00 Anesthesiologist:: Adama Ramesh CRNA Complications:: None Pre-procedure Diagnosis:: Degenerative disc lumbar spine multilevels. Lumbar radiculopathy. Lumbar spondylosis. Multilevel lumbar facet arthropathy. Post-procedure Diagnosis:: Same. Indications for Procedure:: Patient is a very pleasant 63-year-old male that comes to our clinic today for trial #2 of medial branch blocks/facet injections lumbar L4-5, L5-S1 bilaterally. Patient reports 4 to 6 months of significant improvement terms of his low lumbar back pain and radicular pain following trial #1 of medial branch blocks same level. He rates his pain today 7/10. Procedure Details:: Informed consent was obtained and the risk and benefits of the procedure was explained to the patient. Patient was taken to the procedure room where nonin vasive monitors were placed, including noninvasive blood pressure cuff as well as pulse oximeter. The area over the lumbar spine was cleansed using chlorhexidine as a cleansing solution. I anesthetized the skin and subcutaneous tissues with 1% Lidocaine. I placed 22-gauge spinal needles into the facet joint/ medial branches of L4-L5, and L5-S1] bilaterally. Needle placement was confirmed with fluoroscopy. After confirmation of needle placement, each site was injected with 1 mL of 1% lidocaine and 0.25 % Marcaine and 10 mg of Depo- Medrol. A total of 80 mg of depo medrol was used for bilateral medial branch blocks of L4-L5, and L5-S1] bilaterally. Patient tolerated the procedure without difficulty. There were no complications. Plan and Disposition:: Patient was discharged without incident.
== END 2023-09-09 11:12 | disposition home or self-care (01) ==
LOC: SC.PAINP 10:43
PROVIDERS: PCP Internal Medicine; Visit Provider Nurse Anesthetist, Certified Registered
DX: M47.896 Other spondylosis, lumbar region (principal); M51.16 Intervertebral disc disorders with radiculopathy, lumbar region
CPT/HCPCS: 64493; 64494; J1010

== ENCOUNTER 2023-10-03 08:24 | Outpatient (POV) | payer OTHER, SELFPAY ==
--- NOTE | 2023-10-03 08:26 | A.OFFVIS_ITS ---
[facility] Pain Management SOAP Note Subjective:: Patient is a pleasant 63-year-old male who presents today for follow-up of his second lumbar medial branch block bilaterally L4-L5 and L5-S1 on 09/09/2023. Today he rates his pain a 8 out of 10. He states that he got significant relief of at least 90% following this injection. He does state however that they were cleaning old dishes the other day in the yard and he went to turn a certain way and felt sharp shooting pain. Patient states that the next day he could barely walk. He describes this as a sharp achy sensation that is all around his right hip. He denies any radiating symptoms into his leg. Patient does state the pain interferes with his ability perform activities of daily living such as cooking and cleaning. Patient is interested in injection therapy. his Rod has been reviewed and is appropriate. Review of Systems: General: No recent weight changes, no fever, no sleep disturbances Respiratory: No cough, no shortness of air, no recurring pulmonary infections Cardiovascular/peripheral vascular: No chest pain, no palpitations, no edema, no shortness of breath Gastrointestinal: No new onset incontinence, normal bowel movements reported Genitourinary: No new onset incontinence Musculoskeletal: Low back pain, right hip pain Psychiatric: [Normal mood/affect] Neurological: [Denies weakness in extremities], [denies balance issues] Objective:: Physical Exam: General: Alert and oriented x3, no acute distress, pleasant and cooperative Lungs: Respirations even and unlabored, symmetrical chest expansion Eyes: PERRL Musculoskeletal: Flexion and extension of lumbar [spine] somewhat guarded secondary to pain, [antalgic gait noted] extreme point tenderness along the right SI with a positive right Dong's, Cat's, Gaenslen's, compression and distraction exam Neurological: Speech clear, no gross sensory deficit Assessment:: Degenerative disc disease of cervical and lumbar spine with cervical and lumbar radiculopathy symptoms, sacroiliitis, lumbar facet arthropathy Plan:: Patient is experiencing significant pain throughout his low back along the right hip. Patient did have extreme point tenderness along his right SI with a positive right Dong's, Cat's, Gaenslen's, compression and distraction exam. I have discussed with the patient that he may benefit from right SI injection. Risk and benefits were discussed with the patient and he would like to proceed forward with this plan of care. Patient has tried and failed conservative therapy including continued at home stretching and exercise between injections. I will send in a 5-day dose of prednisone 20 mg twice daily and refill on baclofen 10 mg twice daily as needed. Patient will be scheduled for right SI injection under fluoroscopy. Patient has been instructed to contact the clinic with any concerns before the next appointment. Dr. Lang has reviewed this note and agrees with this plan of care. This note was dictated using voice recognition software and make contain errors or omissions. [facility] Disclaimer: The information contained in this section may have been updated after the patient was seen, as this information can be updated by other users. Medical History Encounter to establish care Routine lab draw CAD (coronary artery disease) JUN 2021-Acute inferolateral ST elevation myocardial infarction as described above Successful mechanical aspiration followed by drug-eluting stent deployment to the proximal mid and distal dominant right coronary in a contiguous manner 100% occlusion reduced to 0% with 2 contiguous drug-eluting stents Preserved ejection fraction of 45 to 50% with inferior wall hypokinesis Mildly elevated LVEDP Patent JORGE to the LAD Patent saphenous vein graft to circumflex artery Low back pain radiating to left lower extremity Heel pain, bilateral Hypertension History of heart attack Family History Other No significant family history Social History Smoking Status: Current every day smoker tobacco type: cigarettes packs per day: 1 alcohol intake: never substance use type: marijuana current occupational status: other Travel in the last 8 weeks: None household members: spouse housing: house current occupation: laid off current occupational exposures/hazards: No caffeine: Yes
[2023-10-03 08:34] VITALS: BP 145/97; PULSE 73; RESP 16; O2SAT 97; BMI 23.0
== END 2023-10-03 23:59 | disposition home or self-care (01) ==
PROVIDERS: PCP Internal Medicine; Visit Provider Nurse Practitioner Family
DX: M46.1 Sacroiliitis, not elsewhere classified (principal); M47.896 Other spondylosis, lumbar region; M51.16 Intervertebral disc disorders with radiculopathy, lumbar region; M50.10 Cervical disc disorder with radiculopathy, unspecified cervical region
CPT/HCPCS: 99212; G0463

== ENCOUNTER 2024-12-17 07:15 | Emergency (ER) | payer MEDICARE, SELFPAY ==
[2024-12-17] VITALS (10 sets, daily range): BP systolic 124–145; BP diastolic 60–80; PULSE 47–60; RESP 10–20; TEMP 36.7–36.8; O2SAT 97–100; BMI 21.7
--- OUTSIDE RECORDS SUMMARY | 2024-12-17 07:19 | XMS_ITS | Clinical Summary ---
Author Organization Healthcare Address [address] [place] [address] Care Team Providers Care Teacher Specialist Name Role Phone Rosanna Sanchez APRN Primary Care Provider [phone] Family History Medical History Relation Name Comments Other cancer Mother Hypertension Other 1 Other cancer Other 2 Conversions - Other Other 3 FH: hear t attack Relation Name Status Comments Mother Other 1 Other 2 Other 3 Social History Tobacco Use Types Packs/Day Years Used Date Smoking Tobacco: Every Day Alcohol Use Standard Drinks/Week Comments No 0 (1 standard drink = 0.6 oz pur e alcohol) Sex and Gender Information Value Date Recorded Sex Assigned at Not on file Legal Sex Male 7:35 PM EDT Gender Identity Not on file Sexual Orientation Not on file Last Filed Vital Signs Vital Sign Reading Time Taken Comments Blood Pressure 152/86 06/11/2019 10:16 AM EST Pulse - - Temperature - - Respiratory Rate - - Oxygen Saturation - - Inhaled Oxygen Concentration - - Weight 89.4 kg (197 lb 1.5 oz) 06/11/2019 10:16 AM EST Height 182.9 cm (6') 06/11/2019 10:16 AM EST Body Mass Index 26.73 06/11/2019 10:16 AM EST Plan of Treatment Health Maintenance Due Date Last Done Comments [facility]-Depression Screening 1962 [facility]-/Child/Adol SDOH Screenings 1960 [facility]- SDOH Screenings 1980 [facility]-Adult SDOH Screenings 1980 [facility]-DTaP,Tdap,and Td Vaccine s (1 - Tdap) 1981 CT Colonography 2007 Colonoscopy 2007 FIT-DNA 2007 FIT 2007 FOBT 2007 Sigmoidoscopy 2007 [facility]-Colorectal Cancer Screening 2007 [facility]-Pneumococcal Vaccine: 50 + Years (1 of 1 - PCV) 2012 [facility]-Zoster Vaccines (1 of 2) 2012 [id number] Vaccine (4 - 2023- season) 2024 03/30/2021, 08/15/2020, 07/18/2020 [facility]-Influenza Vaccine (#1) 01/10/202503/12, 03/03/2020 [facility]-RSV Vaccine: 60+ Years o r (1 - 1-dose 75+ series) 2037 HPV Vaccines Aged Out No longer eligi ble based on patient's age to complete this topic [facility]-HIB Vaccines Aged Out No longer e ligible based on patient's age to complete this topic [facility]-Hepatitis A Vaccines Aged Out No longer eligible based on patient's age to complete this topic [facility]-IPV Vaccines Aged Out No longer e ligible based on patient's age to complete this topic [facility]-Rotavirus Vaccines Aged Out No lo nger eligible based on patient's age to complete this topic Insurance [facility] MEDICAID Care Teams Teacher Specialist Relationship Specialty Start Date End Date Rosanna Sanchez APRN [address] [place] [address] [id number] PCP - General 09/22/20
--- NOTE | 2024-12-17 07:20 | ECG_ITS ---
APPROVED REPORT Exam: Resting ECG HR:48 bpm ECG Measurements Heart Rate 48 AXES AL 183 P 53 QRSd 118 QRS 87 QT 481 T 61 QTc 446 Conclusion SINUS BRADYCARDIA SEPTAL MYOCARDIAL INFARCTION , OF INDETERMINATE AGE [40+ ms Q WAVE IN V1/V2] ABNORMAL ECG UNCONFIRMED REPORT Sinus bradycardia. No ST elevation or depression. QTc normal at 446 Electronically signed by : CAMILO KING, 12/17/2024 08:38:34
--- NOTE | 2024-12-17 07:20 | HMH.EDGENADL ---
Discharge Plan Disposition Patient Disposition: Home, Self-Care Prescriptions Prescriptions: New meclizine 25 mg tablet 25 mg PO BID PRN (Reason: dizziness) Qty: 60 0RF No Action aspirin 81 mg tablet,chewable 81 mg PO DAILY Qty: 90 1RF atorvastatin 80 mg tablet 80 mg PO HS Qty: 90 1RF (DME) FreeStyle Lite Strips Strip See Rx Instructions .Route Qty: 100 10RF Rx Instructions: As directed cholecalciferol (vitamin D3) 1,250 mcg (50,000 unit) capsule See Rx Instructions .ROUTE .COMPLEX Qty: 10 0RF Rx Instructions: TAKE ONE CAPSULE BY MOUTH EVERY WEEK FOR VITAMIN DAY DEFICIENCY clopidogrel [Plavix] 75 mg tablet 75 mg PO DAILY Qty: 90 1RF ezetimibe [Zetia] 10 mg tablet 10 mg PO DAILY Qty: 90 1RF Jardiance 25 mg tablet 25 mg PO DAILY Qty: 90 1RF (DME) lancets 30 gauge misc See Rx Instructions .Route Qty: 200 0RF Rx Instructions: As directed lisinopril 5 mg tablet 5 mg PO DAILY Qty: 90 1RF metformin 1,000 mg tablet 1,000 mg PO BID Qty: 180 1RF metoprolol succinate [Toprol XL] 25 mg tablet extended release 24 hr 25 mg PO DAILY Qty: 90 1RF sildenafil 25 mg tablet 25 mg PO DAILY PRN (Reason: .) Qty: 10 2RF Rx Instructions: administer 30 minutes to 4 hours before activity prednisone 20 mg tablet 20 mg PO BID Qty: 10 0RF baclofen 10 mg tablet 10 mg PO BID Qty: 28 0RF atorvastatin 80 mg tablet 80 mg PO HS (DME) FreeStyle Lite Strips Strip See Rx Instructions .Route Rx Instructions: As directed (DME) blood-glucose meter [FreeStyle Lite Meter] Kit See Rx Instructions .Route Rx Instructions: As directed aspirin 81 mg tablet,chewable 81 mg PO DAILY cholecalciferol (vitamin D3) 1,250 mcg (50,000 unit) capsule See Rx Instructions .ROUTE .COMPLEX Rx Instructions: TAKE ONE CAPSULE BY MOUTH EVERY WEEK FOR VITAMIN DAY DEFICIENCY glipizide 5 mg tablet 5 mg PO DAILY ezetimibe [Zetia] 10 mg tablet 10 mg PO DAILY Referrals Follow up/Referrals: Provider,Referral, MD [Referring, Medical] - See instructions Activity Restrictions/Add. Instructions Additional Instructions/Restrictions: You are being prescribed meclizine to help with your dizziness. Take this as prescribed. I do encourage you to follow-up with your primary care physician if symptoms do not improve as you may need evaluation by a specialist. If you develop any new or worsening symptoms, or if you become concerned for your health for any reason, return to the emergency department for evaluation. Clinical Impressions Clinical Impression: Dizziness Print Language Print Language: Citizen Of [place] Discharge ED Provider: Lalo Petit Adult HPI General Chief complaint: Dizziness Stated complaint: dizziness Time Seen by Provider: 12/17/24 07:20 Mode of Arrival: EMS Source of Information: Patient Limitations: No Limitations History of Present Illness HPI narrative: Nasir Hills is a 64y male with a history of coronary artery disease status post CABG, coronary stents on aspirin and Plavix, tobacco use, hyperlipidemia, hypertension who presents to the emergency department for complaints of dizziness. Patient states over last 2 to 3 weeks, he has had intermittent episodes of what he describes as lightheadedness like he is about to pass out. He states initially it occurred when he was in be active and move and would last 10 to 15 seconds before resolving on its own. He states that it seems to be happening more frequently. He woke up this morning at 5 AM to urinate and as he was getting back in bed, felt lightheaded and it lasted longer than it normally does. He called 911. He reports over last 2 to 3 days, getting nauseated when this happens. He did have 2 episodes of vomiting and route today with EMS but thinks it is from the ambulance ride itself. He states overall, symptoms is mild at this time. He does report a mild headache. He denies any chest pain, shortness of breath, diarrhea or recent illness. He denies any history of strokes. Related Data Home Medications ?Medication ?Instructions ?Recorded ?Confirmed aspirin 81 mg chewable tablet 81 mg PO DAILY CAD 11/18/22 10/03/23 atorvastatin 80 mg tablet 80 mg PO HS Cholesterol 11/18/22 10/03/23 blood sugar diagnostic (FreeStyle 11/18/22 10/03/23 Lite Strips) blood-glucose meter (FreeStyle 11/18/22 10/03/23 Lite Meter kit) cholecalciferol (vitamin D3) 1,250 See Rx Instructions .Route 12/10/22 10/03/23 mcg (50,000 unit) capsule .COMPLEX . ezetimibe 10 mg tablet (Zetia) 10 mg PO DAILY Cholesterol 01/01/23 10/03/23 glipizide 5 mg tablet 5 mg PO DAILY Diabetes 01/01/23 10/03/23 Previous Rx's ?Medication ?Instructions ?Recorded aspirin 81 mg chewable tablet 81 mg PO DAILY CAD #90 tabs 08/01/23 atorvastatin 80 mg tablet 80 mg PO HS Cholesterol #90 tabs 08/01/23 blood sugar diagnostic (FreeStyle #100 ea 08/01/23 Lite Strips) cholecalciferol (vitamin D3) 1,250 See Rx Instructions .Route 08/01/23 mcg (50,000 unit) capsule .COMPLEX . #10 caps clopidogrel 75 mg tablet (Plavix) 75 mg PO DAILY CAD #90 tabs 08/01/23 empagliflozin 25 mg tablet 25 mg PO DAILY #90 tabs 08/01/23 (Jardiance) ezetimibe 10 mg tablet (Zetia) 10 mg PO DAILY Cholesterol #90 tabs 08/01/23 lancets 30 gauge #200 ea 08/01/23 lisinopril 5 mg tablet 5 mg PO DAILY BLOOD PRESSURE #90 08/01/23 tabs metformin 1,000 mg tablet 1,000 mg PO BID #180 tabs 08/01/23 metoprolol succinate 25 mg 25 mg PO DAILY BLOOD PRESSURE #90 08/01/23 tablet,extended release 24 hr tabs (Toprol XL) sildenafil 25 mg tablet 25 mg PO DAILY PRN . #10 tabs 08/01/23 baclofen 10 mg tablet 10 mg PO BID Back Pain #28 tabs 10/03/23 prednisone 20 mg tablet 20 mg PO BID #10 tabs 10/03/23 meclizine 25 mg tablet 25 mg PO BID PRN dizziness #60 tabs 12/17/24 Allergies Allergy/AdvReac Type Severity Reaction Status Date / Time ticagrelor (From Brilinta) AdvReac dyspnea Verified 09/04/23 14:30 [facility] Disclaimer: The information contained in this section may have been updated after the patient was seen, as this information can be updated by other users. Medical History Encounter to establish care Routine lab draw CAD (coronary artery disease) JUN 2021-Acute inferolateral ST elevation myocardial infarction as described above Successful mechanical aspiration followed by drug-eluting stent deployment to the proximal mid and distal dominant right coronary in a contiguous manner 100% occlusion reduced to 0% with 2 contiguous drug-eluting stents Preserved ejection fraction of 45 to 50% with inferior wall hypokinesis Mildly elevated LVEDP Patent JORGE to the LAD Patent saphenous vein graft to circumflex artery Low back pain radiating to left lower extremity Heel pain, bilateral Hypertension History of heart attack Family History Other No significant family history Social History Smoking Status: Current every day smoker tobacco type: cigarettes packs per day: 1 alcohol intake: never substance use type: marijuana current occupational status: other Travel in the last 8 weeks?: None household members: spouse housing: house current occupation: laid off current occupational exposures/hazards: No caffeine: Yes Have you lived/traveled outside [place] in past 30 days?: No Contact w/someone who lives/traveled outside US past 30 days?: No Exposure to someone with infectious disease in past 14 days?: No Do you have a fever (greater than 100.4 F or 38 C)?: No Have you tested positive for COVID-19?: No Exposed to someone with COVID-19 in past 14 days?: No Do you have a sore throat?: No Do you have a cough?: No Do you have any weakness?: No Do you have any diarrhea?: No Are you experiencing any unusual bleeding?: No Do you have any muscle aches/pain?: No Do you have any abdominal pain?: No Are you experiencing loss of taste or smell?: No Other Medical History Have you received the Flu Vaccine for this season: No Have you received the Pneumonia Vaccine: No ROS Obtained: Yes Systems reviewed as appropriate & no additional complaints except as documented Physical Exam General General appearance: alert and in no apparent distress Head Head exam: atraumatic Eye Eye exam: Present normal appearance, PERRL and EOMI ENT ENT exam: Present normal external ear exam Neck Neck exam: Present full ROM Chest Chest inspection: Present symmetric chest wall rise Respiratory Respiratory exam: Present normal lung sounds bilaterally; Absent respiratory distress Cardiovascular Cardiovascular exam: Present normal rhythm and bradycardia Abdominal Exam Abdominal exam: Present soft; Absent tenderness or guarding exam: Present deferred Extremities Exam Extremities exam: Present normal inspection Back Exam Back exam: Present normal inspection Neurological Exam Neurological exam: Present alert, oriented X3, CN II-XII intact and other (Normal finger-nose testing, normal rapid alternating movements, normal [id number] testing); Absent motor sensory deficit Psychiatric Psychiatric exam: Present normal affect Skin Skin exam: Present warm and dry Medical Decision Making Medical Records Screening: Per USPSTF and CDC recommendations, given the prevalence of disease in our region, it is our hospital?s policy to screen for HIV and viral Hepatitis for all patients aged 18 and over and those with ongoing risk factors. Rod Inquiry Pt receiving controlled substance: No Vital Signs: 12/17/24 07:29 12/17/24 07:31 12/17/24 07:37 Temperature 98.1 F Temperature Source Oral Pulse Rate 56 L 54 L Pulse Rate [Left Radial] 50 L Pulse Rate [Orthostatic Sitting Right] Pulse Rate [Orthostatic Standing Right] Pulse Rate [Right] Respiratory Rate 20 18 15 Blood Pressure 145/76 H 137/72 Blood Pressure [Orthostatic Lying Right Arm] Blood Pressure [Orthostatic Sitting] Blood Pressure [Orthostatic Standing] Blood Pressure [Right Arm] 131/75 Blood Pressure Mean [Right Arm] 93 02 Sat by Pulse Oximetry 99 99 100 Oxygen Delivery Method Room Air 12/17/24 07:38 12/17/24 07:39 12/17/24 07:40 Temperature Temperature Source Pulse Rate 56 L 53 L Pulse Rate [Left Radial] Pulse Rate [Orthostatic Sitting Right] 51 L Pulse Rate [Orthostatic Standing Right] 58 L Pulse Rate [Right] 47 L Respiratory Rate 10 L Blood Pressure 140/79 124/80 Blood Pressure [Orthostatic Lying Right Arm] 137/72 Blood Pressure [Orthostatic Sitting] 140/79 Blood Pressure [Orthostatic Standing] 124/80 Blood Pressure [Right Arm] Blood Pressure Mean [Right Arm] 02 Sat by Pulse Oximetry 99 100 Oxygen Delivery Method 12/17/24 08:00 12/17/24 08:31 12/17/24 08:59 Temperature Temperature Source Pulse Rate 53 L 52 L 54 L Pulse Rate [Left Radial] Pulse Rate [Orthostatic Sitting Right] Pulse Rate [Orthostatic Standing Right] Pulse Rate [Right] Respiratory Rate 19 15 Blood Pressure 131/65 140/67 132/79 Blood Pressure [Orthostatic Lying Right Arm] Blood Pressure [Orthostatic Sitting] Blood Pressure [Orthostatic Standing] Blood Pressure [Right Arm] Blood Pressure Mean [Right Arm] 02 Sat by Pulse Oximetry 97 98 99 Oxygen Delivery Method Lab Data Lab Results 12/17/24 07:23: WBC 10.8, RBC 5.24, Hgb 17.6, Hct 49.6, MCV 94.7 H, MCH 33.6 H, MCHC 35.5 H, RDW 12.3, Plt Count 236, MPV 10.4, Neut % (Auto) 76.5, Lymph % (Auto) 15.4, [place] % (Auto) 5.2, Eos % (Auto) 1.7, Baso % (Auto) 0.6, Neut # (Auto) 8.3 H, Lymph # (Auto) 1.7, [place] # (Auto) 0.6, Eos # (Auto) 0.2, Baso # (Auto) 0.1, PT 11.5, INR 1.04, APTT 24.3, Sodium 136, Potassium 4.6, Chloride 101, Carbon Dioxide 26, Anion Gap 13.6, BUN 12, Creatinine 0.90, Estimated Creat Clear 79, Estimated GFR 86, Est GFR ( Amer) 103, Glucose 283 H, Calcium 9.2, Magnesium 1.9, Total Bilirubin 1.1, AST 25, ALT 21, Alkaline Phosphatase 163 H, Troponin I < 0.01, Total Protein 7.2, Albumin 4.2, Globulin 3.0, Albumin/Globulin Ratio 1.4, TSH 1.12, Free T4 1.37 12/17/24 07:30: VBG pH 7.39, VBG pCO2 46.7, VBG pO2 42.3 H, VBG HCO3 25.1, VBG Total CO2 26.6, VBG O2 Saturation 76.6 H, VBG Base Excess -0.5, VBG Lactic Acid 1.7 12/17/24 07:23 12/17/24 07:23 Orders (Tests/Meds): ED MEDICATIONS Generic Name Dose Route Start Last Admin Trade Name Freq PRN Reason Stop Dose Admin Sodium Chloride 10 ml 12/17/24 08:21 12/17/24 08:22 Sodium Chloride 0.9% 10ml Syr (Rad Only) IV 01/16/25 08:20 10 ml NEEDED PRN Administration Maintain IV Site Discontinued Medications Generic Name Dose Route Start Last Admin Trade Name Cristina PRN Reason Stop Dose Admin Iopamidol 80 ml 12/17/24 08:21 12/17/24 08:22 Iopamidol-370 (76%);100ml Bottle IV 12/17/24 08:22 80 ml ONCE ONE Administration Meclizine HCl 25 mg 12/17/24 07:32 12/17/24 07:36 Meclizine 25mg Tablet PO 12/17/24 07:33 25 mg ONCE ONE Administration Sodium Chloride 50 ml 12/17/24 08:21 12/17/24 08:21 0.9 % Sodium Chloride 50 Ml Vial IV 12/17/24 08:22 50 ml ONCE ONE Administration ORDERS Category Date Time Status CT angio head Stat Cat Scan 12/17/24 07:[address] angio neck Stat Cat Scan 12/17/24 07:[address] head/brain wo con Stat Cat Scan 12/17/24 07:30 Completed CBC w/Auto Diff [Complete Blood Count Auto Diff] Stat Lab 12/17/24 07:23 Completed CMP [Comprehensive Metabolic Panel] Stat Lab 12/17/24 07:23 Completed Free T4 (Free Thyroxine) Stat Lab 12/17/24 07:23 Completed Magnesium Stat Lab 12/17/24 07:23 Completed PT INR [Prothrombin Time INR] Stat Lab 12/17/24 07:23 Completed PTT [Activated Partial Thrombo Time] Stat Lab 12/17/24 07:23 Completed TSH [Thyroid Stimulating Hormone] Stat Lab 12/17/24 07:23 Completed Troponin I Q3H Lab 12/17/24 10:45 Ordered Troponin I Q3H Lab 12/17/24 13:45 Ordered Troponin I Stat Lab 12/17/24 07:23 Completed VBG [Venous Blood Gas] Stat RT 12/17/24 07:30 Completed ECG Data Tracing #1: I reviewed this ECG and interpreted as documented below: Sinus bradycardia with a ventricular rate of [address] elevation or depression. QTc normal at 446. With a ventricular rate of 48 bpm Medical Decision Narrative: Nasir Hills is a 64y male with a history of coronary artery disease status post CABG, coronary stents on aspirin and Plavix, tobacco use, hyperlipidemia, hypertension who presents to the emergency department for complaints of dizziness. Patient states over last 2 to 3 weeks, he has had intermittent episodes of what he describes as lightheadedness like he is about to pass out. He states initially it occurred when he was in be active and move and would last 10 to 15 seconds before resolving on its own. He states that it seems to be happening more frequently. He woke up this morning at 5 AM to urinate and as he was getting back in bed, felt lightheaded and it lasted longer than it normally does. He called 911. He reports over last 2 to 3 days, getting nauseated when this happens. He did have 2 episodes of vomiting and route today with EMS but thinks it is from the ambulance ride itself. He states overall, symptoms is mild at this time. He does report a mild headache. He denies any chest pain, shortness of breath, diarrhea or recent illness. He denies any history of strokes. On arrival, patient is mildly bradycardic with heart rate in the 50s. Normotensive. Maintaining appropriate oxygen saturations on room air. Physical exam, as stated above, reveals an overall well-appearing male in no distress. GCS 15. Cranial nerves grossly intact. No dysdiadochokinesia with normal finger-nose testing, normal rapid alternating movements, normal [id number] testing. Sensation and motor function grossly intact. Pupils equal round reactive to light. Extraocular movements intact without nystagmus. Cardiopulmonary exam revealed bradycardia but no murmurs, wheezing, rales or rhonchi. Differential diagnosis includes, but is not limited to: CVA, carotid artery stenosis, BPPV, orthostatic hypotension, M?ni?re's disease, vestibular neuritis, electrolyte derangement, among others. The most morbid conditions were considered and workup was based on these. Workup in the emergency department included: CT head without contrast, CTA head and neck, CBC, CMP, magnesium level, TSH, free T4, PT/INR, PTT, troponin, EKG, VBG with lactate, orthostatic blood pressures. Patient was treated with 25 mg of oral meclizine. EKG without evidence of ischemia. See interpretation above. Laboratory studies interpreted by me personally demonstrated no leukocytosis, hemoglobin normal at 17.6, hematocrit normal at 49.6. Platelets normal at 236. Coagulation studies within normal limits. pH normal at 7.39, lactate normal at 1.7. Electrolytes within normal limits, no ADELINA, glucose is elevated at 283. Magnesium normal at 1.9. Liver enzymes within normal limits. Bilirubin normal at 1.1. Initial troponin negative at 0.01. Thyroid studies within normal limits. CT imaging interpreted by me personally demonstrated no intracranial hemorrhage, mass or midline shift. No significant stenosis of the right carotid artery and less than 50% stenosis of the left. See final radiology report for details. No other acute findings on CTA's. This felt that patient's minimal stenosis is unlikely to be contributing to his symptoms. On reassessment, patient reported improvement in symptoms. Is felt that given the paroxysmal nature of his symptoms, could be related more to BPPV. I will prescribe meclizine and encouraged him to follow-up with his primary care physician. Return precautions were given. All questions were answered. He demonstrated understanding and was in agreement with this plan. He was then discharged from the emergency department in stable condition. Critical Care Critical Care Time Critical Care Time: No
--- NOTE | 2024-12-17 07:23 | PC.NURSE ---
in room talking with patient at this time.
--- NOTE | 2024-12-17 07:30 | CT_ITS ---
FINAL REPORT TECHNIQUE: Axial CT images were performed through the head. Coronal reformatted images were submitted. This study was performed with techniques to keep radiation doses as low as reasonably achievable (ALARA). Individualized dose reduction techniques using automated exposure control or adjustment of mA and/or kV according to the patient's size were employed. CLINICAL HISTORY: Lightheadedness, dizziniess COMPARISON: None FINDINGS: Mild atrophy is noted. The ventricles are appropriate in size. There is no evidence of hemorrhage. There is no mass or edema identified. There is no abnormal extra-axial fluid seen. There is mild mucoperiosteal thickening of the bilateral maxillary sinuses. There are no air-fluid levels. IMPRESSION: No acute intracranial process. Reviewed, Interpreted and Dictated by Reuben Leyva MD Transcribed by Rianna Whitt Authenticated and [facility]
--- NOTE | 2024-12-17 07:30 | CT_ITS ---
FINAL REPORT TECHNIQUE: thin section axial CT with and without IV contrast supplemented with multiplanar 3-D reconstruction of the head. This study was performed with techniques to keep radiation doses as low as reasonably achievable, (ALARA)individualized dose reduction techniques using automated exposure control or adjustment of mA and/or kV according to the patient's size were employed. CLINICAL HISTORY: Lightheadedness, Dizziness COMPARISON: None FINDINGS: CTA: The cranial circulation is unremarkable. There is normal intracranial branching. There is no significant stenosis, aneurysm or occlusion. IMPRESSION: No acute process. Reviewed, Interpreted and Dictated by Reuben Leyva MD Transcribed by Rianna Whitt Authenticated and [facility]
--- NOTE | 2024-12-17 07:30 | CT_ITS ---
FINAL REPORT TECHNIQUE: NASCET technique utilized for stenosis evaluation. CLINICAL HISTORY: Lightheadedness, Dizziness COMPARISON: None FINDINGS: Moderate vascular calcifications are noted at the carotid bifurcations. RIGHT CAROTID: No significant stenosis is seen of the cervical common or internal carotid artery. LEFT CAROTID: Less than 50% stenosis. VERTEBRALS: The vertebrals are patent. Left vertebral artery is dominant. No significant stenosis is present. IMPRESSION: No significant stenosis right carotid artery. Less than 50% stenosis on the left. Reviewed, Interpreted and Dictated by Reuben Leyva MD Transcribed by Rianna Whitt Authenticated and . [facility]
[2024-12-17] MEDS: MECLIZINE 25MG TABLET 25 MG PO (07:36)
[2024-12-17 07:42] LABS: VBG HCO3 25.1 mmol/L (23-30); VBG PCO2 46.7 mmol/L (35-51); VBG PH 7.39 mmol/L (7.31-7.41); VBG PO2 42.3 mmol/L (28-40)
[2024-12-17 07:43] LABS: Lactate Venous 1.7 mmol/L (0.4-2.0)
[2024-12-17 07:44] LABS: Hematocrit 49.6 % (42.0-52.0); Hemoglobin 17.6 g/dL (14.1-18.0); Immature Granulocytes % 0.6 %; Mean Corpuscular HGB Conc 35.5 g/dL (31.8-35.4); Mean Corpuscular Hemoglobin 33.6 pg (27.0-31.2); Mean Corpuscular Volume 94.7 fl (80-94); Nucleated Red Blood Cells % 0 %; Platelet Count 236 K/mm3 (142-424); Red Blood Count 5.24 M/mm3 (4.60-6.20); Red Cell Distribution Width-SD 42.7 fL; White Blood Count 10.8 K/mm3 (4.8-10.8)
[2024-12-17 07:45] LABS: Albumin Level 4.2 g/dl (3.5-5.0); Chloride 101 mmol/L (98-107); Potassium 4.6 mmoL/L (3.5-5.1); Sodium 136 mmol/L (136-145)
[2024-12-17 07:47] LABS: Alanine Aminotransferase 21 U/L (12-78); Blood Urea Nitrogen 12 mg/dl (9-20); Creatinine Clearance Estimated 79 mL/min (50-200); Creatinine,Serum 0.90 mg/dl (0.66-1.25); Estimated Glomerular Filt Rate 86 ml/min (>60); GFR (African American) 103 ML/MIN (>60)
[2024-12-17 07:48] LABS: Albumin/Globulin Ratio 1.4 (1.1-1.8); Alkaline Phosphatase 163 U/L (38-126); Anion Gap 13.6 mEq/L (5-15); Aspartate Amino Transferase 25 U/L (17-59); Bilirubin,Total 1.1 mg/dl (0.2-1.3); Calcium 9.2 mg/dl (8.4-10.2); Carbon Dioxide 26 mmol/L (22.0-30.0); Globulin 3.0 g/dL (1.3-3.2); Glucose 283 mg/dl (74-100); Magnesium 1.9 mg/dl (1.6-2.3); Total Protein,Serum 7.2 g/dl (6.3-8.2)
[2024-12-17 07:52] LABS: Activated Partial Thrombo Time 24.3 seconds (22.8-30.6); INR 1.04 (0.9-1.1); Prothrombin Time 11.5 seconds (10.1-12.5)
[2024-12-17 08:01] LABS: Troponin I < 0.01 ng/ml (0.00-0.034)
[2024-12-17 08:12] LABS: Free T4 (Free Thyroxine) 1.37 ng/dl (0.78-2.19)
[2024-12-17 08:19] LABS: Thyroid Stimulating Hormone 1.12 uIU/mL (0.465-4.68)
[2024-12-17] MEDS: 0.9 % SODIUM CHLORIDE 50 ML VIAL IV (08:21)
[2024-12-17] MEDS: SODIUM CHLORIDE 0.9% 10ML SYR (RAD ONLY) 10 ML IV (08:22)
[2024-12-17] MEDS: IOPAMIDOL-370 (76%);100ML BOTTLE 80 ML IV (08:22)
--- NOTE | 2024-12-17 09:00 | INFXCTL.NOTE ---
calling for breakfast tray at this time.
== END 2024-12-17 09:48 | disposition home or self-care (01) ==
PROVIDERS: Emergency Provider Student in an Organized Health Care Education/Training Program; PCP Nurse Practitioner Family
DX: R42 Dizziness and giddiness (principal); R00.1 Bradycardia, unspecified; F17.210 Nicotine dependence, cigarettes, uncomplicated; I10 Essential (primary) hypertension; E78.5 Hyperlipidemia, unspecified; Z86.79 Personal history of other diseases of the circulatory system; Z95.1 Presence of aortocoronary bypass graft; Z79.01 Long term (current) use of anticoagulants
CPT/HCPCS: 70450; 70496; 70498; 80053; 82803; 83735; 84439; 84443; 84484; 85025; 85610; 85730; 93005; 99285; Q9967

== ENCOUNTER 2024-12-18 20:06 | Observation (INO) | payer MEDICARE, SELFPAY ==
[2024-12-18] VITALS (10 sets, daily range): BP systolic 128–153; BP diastolic 72–100; PULSE 48–60; RESP 14–22; TEMP 36.8; O2SAT 96–100; BMI 21.7
--- OUTSIDE RECORDS SUMMARY | 2024-12-18 20:16 | XMS_ITS | Clinical Summary ---
Author Organization Healthcare Address [address] [place] [address] Care Team Providers Care Label Remover Name Role Phone Rosanna Sanchez APRN Primary Care Provider [phone]- [phone] Family History Medical History Relation Name Comments [...] 2012 UKY-Zoster Vaccines (1 of 2) 2012 [id number] Vaccine (4 - 2023- season) 2024 03/30/2021, [...] patient's age to complete this topic Insurance [facility] MEDICAID Care Teams Label Remover Relationship Specialty Start Date End Date Rosanna Sanchez APRN [address] [place] [address] [place] [id number] PCP - General 09/22/20
--- NOTE | 2024-12-18 20:25 | ECG_ITS ---
APPROVED REPORT Exam: Resting ECG HR:53 bpm ECG Measurements Heart Rate 53 AXES WV 170 P 57 QRSd 107 QRS 93 QT 447 T 66 QTc 430 Conclusion Sinus bradycardia without acute ST or T wave changes concerning for ischemia Electronically signed by : Ermelinda Ludwig, 12/19/2024 00:35:00
--- NOTE | 2024-12-18 20:31 | ED_ITS ---
<Statement entered by Ermelinda Ludwig DO - 12/22/24 16:31> I was consulted by the RYLEE, and we discussed the complexity of problems being addressed. I approve the treatment and management plan for this patient's care in the emergency department, thus performing a substantial portion of the medical decision making. Ermelinda Ludwig DO Discharge Plan Disposition Chief Complaint: Dizziness Discharge ED Provider: Ermelinda uLdwig General Adult HPI <Annalee Baldwin (ED), [facility] - Last Filed: 12/18/24 21:55> General Chief complaint: Dizziness Stated complaint: dizzy cant stand,nausea Time Seen by Provider: 12/18/24 20:12 Mode of Arrival: Ambulatory Source of Information: Patient Description of Symptoms (Recalled from ER Triage Doc. by RN): patient presents to the Emergency room for worsening dizziness. patient was in the emergency departmetn yesterday for the same symptoms and was prescribed meclezine which he stated did not work. he states that the lights hurt his eyes, and movement makes him nauseous. History of Present Illness HPI narrative: 64-year-old male presents to the ED today for complaint of worsening dizziness. Patient was seen in the emergency department yesterday for the same symptoms and was given meclizine and it did not help. He says the lights hurt his eyes and make him nauseous. Movement makes him nauseated as well. He does have somewhat of a headache today. He says that he has had a CABG before and a heart attack with stent placement. He has checked his glucose and it was 300+ today. It is 284 here in the ED now. Patient denies any chest pain, shortness of breath, abdominal pain. No fevers. He was here in the ED yesterday and had CT of head, CTA of neck and head. Everything was negative. Patient had orthostatics done yesterday as well. His workup was negative. Patient does have history of elevated diastolic pressure, shortness of breath, degenerative joint disease, STEMI, hyperlipidemia, CABG, diabetes, headaches, hypertension Related Data Home Medications ?Medication ?Instructions ?Recorded ?Confirmed aspirin 81 mg chewable tablet 81 mg PO DAILY CAD 11/1810/03/23 atorvastatin 80 mg tablet 80 mg PO HS Cholesterol 11/0910/03/23 blood sugar diagnostic (FreeStyle 11/18/22 10/03/23 Lite Strips) blood-glucose meter (FreeStyle 11/18/22 10/03/23 Lite Meter kit) cholecalciferol (vitamin D3) 1,250 See Rx Instructions .Route 12/10/22 10/03/23 mcg (50,000 unit) capsule .COMPLEX . ezetimibe 10 mg tablet (Zetia) 10 mg PO DAILY Choleste rol 01/01/23 10/03/23 glipizide 5 mg tablet 5 mg PO DAILY Diabetes 01/0110/03/23 Previous Rx's ?Medication ?Instructions ?Recorded aspirin 81 mg chewable tablet 81 mg PO DAILY CAD #90 t abs 08/01/23 atorvastatin 80 mg tablet 80 mg PO HS Cholesterol #90 tabs 08/01/23 blood sugar diagnostic (FreeStyle #100 ea 08/01/23 Lite Strips) cholecalciferol (vitamin D3) 1,250 See Rx Instructions .Route 08/01/23 mcg (50,000 unit) capsule .COMPLEX . #10 caps clopidogrel 75 mg tablet (Plavix) 75 mg PO DAILY CAD # 90 tabs 08/01/23 empagliflozin 25 mg tablet 25 mg PO DAILY #90 tabs (Jardiance) ezetimibe 10 mg tablet (Zetia) 10 mg PO DAILY Choleste rol #90 tabs 08/01/23 lancets 30 gauge #200 ea 08/01/23 lisinopril 5 mg tablet 5 mg PO DAILY BLOOD PRESSURE #90 08/01/23 tabs metformin 1,000 mg tablet 1,000 mg PO BID #180 tabs metoprolol succinate 25 mg 25 mg PO DAILY BLOOD PRESSU RE #90 08/01/23 tablet,extended release 24 hr tabs (Toprol XL) sildenafil 25 mg tablet 25 mg PO DAILY PRN . #10 tab s 08/01/23 baclofen 10 mg tablet 10 mg PO BID Back Pain #28 t abs 10/03/23 prednisone 20 mg tablet 20 mg PO BID #10 tabs meclizine 25 mg tablet 25 mg PO BID PRN dizziness # 60 tabs 12/17/24 Allergies Allergy/AdvReac Type Severity Reaction Status Date / Time ticagrelor (From Brilinta) AdvReac dyspnea Verified 09/04/23 14:30 PFSH <Annalee Baldwin (ED), [facility] - Last Filed: 12/18/24 21:55> [facility] Disclaimer: The information contained in this section may have been updated after the patient was seen, as this information can be updated by other users. Medical History Encounter to establish care Routine lab draw CAD (coronary artery disease) JUN 2021-Acute inferolateral ST elevation myocardial infarction as described above Successful mechanical aspiration followed by drug-eluting stent deployment to the proximal mid and distal dominant right coronary in a contiguous manner 100% occlusion reduced to 0% with 2 contiguous drug-eluting stents Preserved ejection fraction of 45 to 50% with inferior wall hypokinesis Mildly elevated LVEDP Patent JORGE to the LAD Patent saphenous vein graft to circumflex artery Low back pain radiating to left lower extremity Heel pain, bilateral Hypertension History of heart attack Family History Other No significant family history Social History Smoking Status: Current every day smoker tobacco type: cigarettes packs per day: 1 alcohol intake: never substance use type: marijuana current occupational status: other Travel in the last 8 weeks?: None household members: spouse housing: house current occupation: laid off current occupational exposures/hazards: No caffeine: Yes Have you lived/traveled outside [place] in past 30 days?: No Contact w/someone who lives/traveled outside US past 30 days?: No Exposure to someone with infectious disease in past 14 days?: No Do you have a fever (greater than 100.4 F or 38 C)?: No Have you tested positive for COVID-19?: No Exposed to someone with COVID-19 in past 14 days?: No Do you have a sore throat?: No Do you have a cough?: No Do you have any weakness?: No Do you have any diarrhea?: No Are you experiencing any unusual bleeding?: No Do you have any muscle aches/pain?: No Do you have any abdominal pain?: No Are you experiencing loss of taste or smell?: No Other Medical History Have you received the Flu Vaccine for this season: No Have you received the Pneumonia Vaccine: No <Annalee Baldwin (ED), [facility] - Last Filed: 12/18/24 21:55> ROS Obtained: Yes Systems reviewed as appropriate & no additional complaints except as documented Constitutional Constitutional: Reports as per HPI Physical Exam <Annalee Baldwin (ED), [facility] - Last Filed: 12/18/24 21:55> General General appearance: alert Head Head exam: atraumatic and normocephalic Eye Eye exam: Present normal appearance, PERRL and EOMI ENT ENT exam: Present normal oropharynx and mucous membranes moist Neck Neck exam: Present full ROM and trachea midline Respiratory Respiratory exam: Present normal lung sounds bilaterally Cardiovascular Cardiovascular exam: Present regular rate, normal rhythm, normal heart sounds, +S1 and +S2 Abdominal Exam Abdominal exam: Present soft and normal bowel sounds Extremities Exam Extremities exam: Present normal inspection, full ROM and normal capillary refill Neurological Exam Neurological exam: Present alert and oriented X3 Skin Skin exam: Present warm, dry and intact <Ermelinda Ludwig, DO - Last Filed: 12/19/24 00:19> Neurological Exam Neurological exam: Present other (horizontal nystagmus bilaterally at baseline, normal FNF, normal heel to sauceda, 5/5 strength in BUE and BLE, sensation intact) Medical Decision Making <Annalee Baldwin (ED), [facility] - Last Filed: 12/18/24 21:55> Medical Records Screening: Per USPSTF and CDC recommendations, given the prevalence of disease in our region, it is our hospital?s policy to screen for HIV and viral Hepatitis for all patients aged 18 and over and those with ongoing risk factors. Rod Inquiry Pt receiving controlled substance: No Rod was queried for this patient: No Vital Signs: 12/18/24 20:20 12/18/24 20:23 12/18/24 20:31 Temperature 98.2 F 98.2 F Temperature Source Oral Oral Pulse Rate 57 L 60 Pulse Rate [Right Radial] 57 L Respiratory Rate 20 18 15 Blood Pressure 141/100 H 128/85 Blood Pressure [Right Arm] 141/100 H Blood Pressure Mean [Right Arm] 113 Blood Pressure Source Automatic Cuff Blood Pressure Source [Right Arm] Automatic Cuff Blood Pressure Position Sitting Blood Pressure Position [Right Arm] Sitting 02 Sat by Pulse Oximetry 98 98 96 Oxygen Delivery Method Room Air Room Air 12/18/24 21:01 12/18/24 21:30 12/18/24 22:02 Temperature Temperature Source Pulse Rate 50 L 49 L 52 L Pulse Rate [Right Radial] Respiratory Rate 22 14 Blood Pressure 142/76 H 145/73 H 142/88 H Blood Pressure [Right Arm] Blood Pressure Mean [Right Arm] Blood Pressure Source Blood Pressure Source [Right Arm] Blood Pressure Position Blood Pressure Position [Right Arm] 02 Sat by Pulse Oximetry 96 96 98 Oxygen Delivery Method 12/18/24 22:31 12/18/24 23:00 12/18/24 23:30 Temperature Temperature Source Pulse Rate 54 L 54 L 48 L Pulse Rate [Right Radial] Respiratory Rate Blood Pressure 153/87 H 136/78 136/72 Blood Pressure [Right Arm] Blood Pressure Mean [Right Arm] Blood Pressure Source Blood Pressure Source [Right Arm] Blood Pressure Position Blood Pressure Position [Right Arm] 02 Sat by Pulse Oximetry 100 100 98 Oxygen Delivery Method 12/18/24 23:45 Temperature Temperature Source Pulse Rate 48 L Pulse Rate [Right Radial] Respiratory Rate Blood Pressure Blood Pressure [Right Arm] Blood Pressure Mean [Right Arm] Blood Pressure Source Blood Pressure Source [Right Arm] Blood Pressure Position Blood Pressure Position [Right Arm] 02 Sat by Pulse Oximetry 98 Oxygen Delivery Method Lab Data Lab Results 12/18/24 20:15: WBC 10.7, RBC 5.60, Hgb 19.0 H, Hct 51.7, MCV 92.3, MCH 33.9 H, MCHC 36.8 H, RDW 12.0, Plt Count 286, MPV 10.4, Neut % (Auto) 64.7, Lymph % (Auto) 26.5, Saline % (Auto) 6.7, Eos % (Auto) 1.3, Baso % (Auto) 0.6, Neut # (Auto) 6.9, Lymph # (Auto) 2.8, Saline # (Auto) 0.7, Eos # (Auto) 0.1, Baso # (Auto) 0.1, Sodium 134 L, Potassium 4.2, Chloride 100, Carbon Dioxide 27, Anion Gap 11.2, BUN 14, Creatinine 0.90, Estimated Creat Clear 79, Estimated GFR 86, Est GFR ( Amer) 103, Glucose 294 H, Calcium 9.6, Magnesium 2.2 D, Total Bilirubin 1.0, AST 29, ALT 24, Alkaline Phosphatase 180 H, Troponin I < 0.01, Total Protein 8.0, Albumin 4.6, Globulin 3.4 H, Albumin/Globulin Ratio 1.4, Lipase 167 12/18/24 20:15 12/18/24 20:15 Orders (Tests/Meds): ED MEDICATIONS Generic Name Dose Route Start Last Admin Trade Name Cristina PRN Reason Stop Dose Admin Acetaminophen 650 mg 12/18/24 23:59 Acetaminophen 325mg Tab PO 01/17/25 23:58 Q4HP PRN Fever or Mild Pain (1-3) Insulin Human Lispro 0 unit 12/19/24 06:00 Humalog 100 Units/Ml 10ml Vial (Ssi) SUBCUT 01/18/25 05:59 ACHS MAVERICK Protocol Ketorolac Tromethamine 15 mg 12/18/24 23:59 Ketorolac 30mg/Ml Vial IV 12/23/24 23:58 Q6HP PRN Moderate Pain (4-6) Ondansetron HCl 4 mg 12/18/24 23:59 Ondansetron 4mg/2ml Vial IV 01/17/25 23:58 Q8HP PRN Nausea Discontinued Medications Generic Name Dose Route Start Last Admin Trade Name Cristina PRN Reason Stop Dose Admin Acetaminophen 1,000 mg 12/18/24 22:03 12/18/24 22:25 Acetaminophen 500mg Tab PO 12/18/24 22:04 1,000 mg ONCE ONE Administration Diazepam 2.5 mg 12/18/24 21:16 12/18/24 21:30 Diazepam 10mg/2ml Syringe IV 12/18/24 21:17 2.5 mg ONCE ONE Administration Diazepam 2.5 mg 12/18/24 22:02 12/18/24 22:25 Diazepam 10mg/2ml Syringe IV 12/18/24 22:03 2.5 mg ONCE ONE Administration Sodium Chloride 1,000 mls @ 999 mls/hr 12/18/24 20:27 12/18/24 20:35 Sod Chlor 0.9% 1000ml Bag IV 12/18/24 21:27 999 mls/hr .Q1H1M ONE Administration Ketorolac Tromethamine 30 mg 12/18/24 22:03 12/18/24 22:26 Ketorolac 30mg/Ml Vial IV 12/18/24 22:04 30 mg ONCE ONE Administration Meclizine HCl 25 mg 12/18/24 22:02 12/18/24 22:26 Meclizine 25mg Tablet PO 12/18/24 22:03 25 mg ONCE ONE Administration Ondansetron HCl 4 mg 12/18/24 20:27 12/18/24 20:35 Ondansetron 4mg/2ml Vial IV 12/18/24 20:28 4 mg ONCE ONE Administration Scopolamine 1 each 12/18/24 23:34 12/19/24 00:16 Scopolamine 1.5mg/72hrs Patch TD 12/18/24 23:35 1 each ONCE ONE Administration ORDERS Category Date Time Status CBC [Complete Blood Count Auto Diff] Stat Lab 12/18/24 20:15 Completed Comprehensive Metabolic Panel Stat Lab 12/18/24 20:15 Completed Lipase Stat Lab 12/18/24 20:15 Completed Magnesium Stat Lab 12/18/24 20:15 Completed Trop I [Troponin I] Stat Lab 12/18/24 20:15 Completed HEART Score History (anamnesis): Slightly suspicious ECG: Normal Age: 45-65 years Risk factors: 1-2 risk factors Troponin: </= normal limit HEART Score: 2 Medical Decision Narrative: patient is a 64-year-old male presenting to the emergency department for evaluation of dizziness. Patient is hemodynamically stable and nontoxic- appearing upon arrival, afebrile. Differential diagnosis includes vertigo, ACS, migraine, among other. Workup will be conducted with hematologic labs. Imaging considered but CTAs and CTs completed just yesterday therefore I do not feel that repeating these would change any care today. I did discuss this with Dr. Ludwig. Initial inventions include crystalloid bolus, analgesics. Initial workup reviewed by me [hematologic labs are remarkable for:]. [Imaging informally interpreted by me and remarkable for:] [Formal imaging read remarkable for:] Upon repeat evaluation [patient's pain is improved, appears better perfused, appears the same, appears worse, etc.]. Due to this [additional interventions, patient is appropriate for discharge, patient requires admission, etc.]. <Ermelinda Ludwig, - Last Filed: 12/19/24 00:19> Vital Signs: 12/18/24 20:20 12/18/24 20:23 12/18/24 20:31 Temperature 98.2 F 98.2 F Temperature Source Oral Oral Pulse Rate 57 L 60 Pulse Rate [Right Radial] 57 L Respiratory Rate 20 18 15 Blood Pressure 141/100 H 128/85 Blood Pressure [Right Arm] 141/100 H Blood Pressure Mean [Right Arm] 113 Blood Pressure Source Automatic Cuff Blood Pressure Source [Right Arm] Automatic Cuff Blood Pressure Position Sitting Blood Pressure Position [Right Arm] Sitting 02 Sat by Pulse Oximetry 98 98 96 Oxygen Delivery Method Room Air Room Air 12/18/24 21:01 12/18/24 21:30 12/18/24 22:02 Temperature Temperature Source Pulse Rate 50 L 49 L 52 L Pulse Rate [Right Radial] Respiratory Rate 22 14 Blood Pressure 142/76 H 145/73 H 142/88 H Blood Pressure [Right Arm] Blood Pressure Mean [Right Arm] Blood Pressure Source Blood Pressure Source [Right Arm] Blood Pressure Position Blood Pressure Position [Right Arm] 02 Sat by Pulse Oximetry 96 96 98 Oxygen Delivery Method 12/18/24 22:31 12/18/24 23:00 12/18/24 23:30 Temperature Temperature Source Pulse Rate 54 L 54 L 48 L Pulse Rate [Right Radial] Respiratory Rate Blood Pressure 153/87 H 136/78 136/72 Blood Pressure [Right Arm] Blood Pressure Mean [Right Arm] Blood Pressure Source Blood Pressure Source [Right Arm] Blood Pressure Position Blood Pressure Position [Right Arm] 02 Sat by Pulse Oximetry 100 100 98 Oxygen Delivery Method 12/18/24 23:45 Temperature Temperature Source Pulse Rate 48 L Pulse Rate [Right Radial] Respiratory Rate Blood Pressure Blood Pressure [Right Arm] Blood Pressure Mean [Right Arm] Blood Pressure Source Blood Pressure Source [Right Arm] Blood Pressure Position Blood Pressure Position [Right Arm] 02 Sat by Pulse Oximetry 98 Oxygen Delivery Method Lab Data Lab Results 12/18/24 20:15: WBC 10.7, RBC 5.60, Hgb 19.0 H, Hct 51.7, MCV 92.3, MCH 33.9 H, MCHC 36.8 H, RDW 12.0, Plt Count 286, MPV 10.4, Neut % (Auto) 64.7, Lymph % (Auto) 26.5, Saline % (Auto) 6.7, Eos % (Auto) 1.3, Baso % (Auto) 0.6, Neut # (Auto) 6.9, Lymph # (Auto) 2.8, Saline # (Auto) 0.7, Eos # (Auto) 0.1, Baso # (Auto) 0.1, Sodium 134 L, Potassium 4.2, Chloride 100, Carbon Dioxide 27, Anion Gap 11.2, BUN 14, Creatinine 0.90, Estimated Creat Clear 79, Estimated GFR 86, Est GFR ( Amer) 103, Glucose 294 H, Calcium 9.6, Magnesium 2.2 D, Total Bilirubin 1.0, AST 29, ALT 24, Alkaline Phosphatase 180 H, Troponin I < 0.01, Total Protein 8.0, Albumin 4.6, Globulin 3.4 H, Albumin/Globulin Ratio 1.4, Lipase 167 Orders (Tests/Meds): ED MEDICATIONS Generic Name Dose Route Start Last Admin Trade Name Freq PRN Reason Stop Dose Admin Acetaminophen 650 mg 12/18/24 23:59 Acetaminophen 325mg Tab PO 01/17/25 23:58 Q4HP PRN Fever or Mild Pain (1-3) Insulin Human Lispro 0 unit 12/19/24 06:00 Humalog 100 Units/Ml 10ml Vial (Ssi) SUBCUT 01/18/25 05:59 ACHS MAVERICK Protocol Ketorolac Tromethamine 15 mg 12/18/24 23:59 Ketorolac 30mg/Ml Vial IV 12/23/24 23:58 Q6HP PRN Moderate Pain (4-6) Ondansetron HCl 4 mg 12/18/24 23:59 Ondansetron 4mg/2ml Vial IV 01/17/25 23:58 Q8HP PRN Nausea Discontinued Medications Generic Name Dose Route Start Last Admin Trade Name Freq PRN Reason Stop Dose Admin Acetaminophen 1,000 mg 12/18/24 22:03 12/18/24 22:25 Acetaminophen 500mg Tab PO 12/18/24 22:04 1,000 mg ONCE ONE Administration Diazepam 2.5 mg 12/18/24 21:16 12/18/24 21:30 Diazepam 10mg/2ml Syringe IV 12/18/24 21:17 2.5 mg ONCE ONE Administration Diazepam 2.5 mg 12/18/24 22:02 12/18/24 22:25 Diazepam 10mg/2ml Syringe IV 12/18/24 22:03 2.5 mg ONCE ONE Administration Sodium Chloride 1,000 mls @ 999 mls/hr 12/18/24 20:27 12/18/24 20:35 Sod Chlor 0.9% 1000ml Bag IV 12/18/24 21:27 999 mls/hr .Q1H1M ONE Administration Ketorolac Tromethamine 30 mg 12/18/24 22:03 12/18/24 22:26 Ketorolac 30mg/Ml Vial IV 12/18/24 22:04 30 mg ONCE ONE Administration Meclizine HCl 25 mg 12/18/24 22:02 12/18/24 22:26 Meclizine 25mg Tablet PO 12/18/24 22:03 25 mg ONCE ONE Administration Ondansetron HCl 4 mg 12/18/24 20:27 12/18/24 20:35 Ondansetron 4mg/2ml Vial IV 12/18/24 20:28 4 mg ONCE ONE Administration Scopolamine 1 each 12/18/24 23:34 12/19/24 00:16 Scopolamine 1.5mg/72hrs Patch TD 12/18/24 23:35 1 each ONCE ONE Administration ORDERS Category Date Time Status CBC [Complete Blood Count Auto Diff] Stat Lab 12/18/24 20:15 Completed Comprehensive Metabolic Panel Stat Lab 12/18/24 20:15 Completed Lipase Stat Lab 12/18/24 20:15 Completed Magnesium Stat Lab 12/18/24 20:15 Completed Trop I [Troponin I] Stat Lab 12/18/24 20:15 Completed HEART Score HEART Score: 2 Medical Decision Narrative: patient is a 64-year-old male presenting to the emergency department for evaluation of dizziness. Patient is hemodynamically stable and nontoxic- appearing upon arrival, afebrile. Differential diagnosis includes central vertigo, ACS, migraine, BPPV, amongst others. Workup will be conducted with hematologic labs. Imaging considered but CTAs and CTs completed just yesterday therefore I do not feel that repeating these would change any care today. I did discuss this with Dr. Ludwig. Initial inventions include crystalloid bolus, analgesics. Labs were reviewed and interpreted by myself: CBC showed no leukocytosis, hemoglobin was stable, CMP unremarkable Patient was given IV fluids, migraine cocktail patient was given meclizine as well as Valium x 2. Patient continued to have significant vertigo on exam. Patient's symptoms are consistent with peripheral vertigo given positional nature. I did not feel that patient warranted repeat CT imaging given that his CT head CTA head and neck were negative yesterday. At this time, I felt the patient warranted admission for vestibular therapy and further management of his vertigo. Patient was agreeable to this and patient was admitted to the hospital for further workup and evaluation. Critical Care <Annalee Baldwin ([id number]), [facility] - Last Filed: 12/18/24 21:55> Critical Care Time Critical Care Time: No
[2024-12-18] MEDS: 0.9 % SODIUM CHLORIDE 1000ML 1,000 ML 999 ML IV (20:35)
[2024-12-18] MEDS: ONDANSETRON 4MG/2ML VIAL 4 MG IV (20:35)
[2024-12-18 20:36] LABS: Albumin Level 4.6 g/dl (3.5-5.0); Chloride 100 mmol/L (98-107); Hematocrit 51.7 % (42.0-52.0); Immature Granulocytes % 0.2 %; Mean Corpuscular HGB Conc 36.8 g/dL (31.8-35.4); Mean Corpuscular Hemoglobin 33.9 pg (27.0-31.2); Mean Corpuscular Volume 92.3 fl (80-94); Nucleated Red Blood Cells % 0 %; Platelet Count 286 K/mm3 (142-424); Potassium 4.2 mmoL/L (3.5-5.1); Red Blood Count 5.60 M/mm3 (4.60-6.20); Red Cell Distribution Width-SD 40.8 fL; Sodium 134 mmol/L (136-145); White Blood Count 10.7 K/mm3 (4.8-10.8)
[2024-12-18 20:39] LABS: Alanine Aminotransferase 24 U/L (12-78); Albumin/Globulin Ratio 1.4 (1.1-1.8); Alkaline Phosphatase 180 U/L (38-126); Anion Gap 11.2 mEq/L (5-15); Aspartate Amino Transferase 29 U/L (17-59); Bilirubin,Total 1.0 mg/dl (0.2-1.3); Blood Urea Nitrogen 14 mg/dl (9-20); Calcium 9.6 mg/dl (8.4-10.2); Carbon Dioxide 27 mmol/L (22.0-30.0); Creatinine Clearance Estimated 79 mL/min (50-200); Creatinine,Serum 0.90 mg/dl (0.66-1.25); Estimated Glomerular Filt Rate 86 ml/min (>60); GFR (African American) 103 ML/MIN (>60); Globulin 3.4 g/dL (1.3-3.2); Glucose 294 mg/dl (74-100); Lipase 167 U/L (23-300); Total Protein,Serum 8.0 g/dl (6.3-8.2)
[2024-12-18 20:40] LABS: Magnesium 2.2 mg/dl (1.6-2.3)
[2024-12-18 20:51] LABS: Hemoglobin 19.0 g/dL (14.1-18.0)
[2024-12-18 21:00] LABS: Troponin I < 0.01 ng/ml (0.00-0.034)
[2024-12-18] MEDS: diazePAM 10MG/2ML SYRINGE 2.5 MG IV ×2 (21:30→22:25)
[2024-12-18] MEDS: ACETAMINOPHEN 500MG TAB 1000 MG PO (22:25)
[2024-12-18] MEDS: KETOROLAC 30MG/ML VIAL 30 MG IV (22:26)
[2024-12-18] MEDS: MECLIZINE 25MG TABLET 25 MG PO (22:26)
[2024-12-19] VITALS (8 sets, daily range): BP systolic 131–144; BP diastolic 60–75; PULSE 50–56; RESP 16–18; TEMP 36.3–36.8; O2SAT 96–98; BMI 21.3
[2024-12-19] MEDS: SCOPOLAMINE 1.5MG/72HRS PATCH 1 EACH TD (00:16)
--- NOTE | 2024-12-19 00:24 | PC.NURSE ---
Report called to Dorothy on M/S
[2024-12-19] MEDS: humaLOG 100 UNITS/ML 10ML VIAL (SSI) SUBCUT ×5 (01:03→21:08)
--- NOTE | 2024-12-19 01:43 | P.HP_ITS ---
<Statement entered by Jose Fields MD - 12/19/24 12:34> Rounded on patient after nurse practitioner. Personally examined and interviewed patient. Agree with exam findings and care plan as documented. History of Present Illness *Admission Date: 12/18/24 *Reason for visit:: Severe vertigo *History of present illness: Mr. Hills said he has had a little bit of dizziness off-and-on for little more than a week., But that today it hit him terribly that anytime he tries to move he wants to fall over.. He states it feels as if the room is spinning around him. He does note 1 changes that he had not been taking his other medications on a regular basis saw his doctor a little more than a week ago and started taking his medicines again. To note the patient is insistent that if he takes the medicine it is only supposed to be once a day because he cannot remember to take it any more than that. Patient is also a long-term smoker. And he has a surveillance specialist follow-up appointment on this coming . In reviewing his history in 2017 2019 was seen for some confusion and amnesia also some headache. Patient now has chronic back pain and is disabled due to his back and neck. His main problem today is the dizziness that he experiences anytime he tries to stand up. He was actually in the emergency room the day before sent home but has come back with the same thing., Plan to repeat orthostatic hypotension vital signs and to consult physical therapy for possible vestibular therapy. [facility] Disclaimer: The information contained in this section may have been updated after the patient was seen, as this information can be updated by other users. Medical History Encounter to establish care Routine lab draw CAD (coronary artery disease) JUN 2021-Acute inferolateral ST elevation myocardial infarction as described above Successful mechanical aspiration followed by drug-eluting stent deployment to the proximal mid and distal dominant right coronary in a contiguous manner 100% occlusion reduced to 0% with 2 contiguous drug-eluting stents Preserved ejection fraction of 45 to 50% with inferior wall hypokinesis Mildly elevated LVEDP Patent OJRGE to the LAD Patent saphenous vein graft to circumflex artery Low back pain radiating to left lower extremity Heel pain, bilateral Hypertension History of heart attack Family History Other No significant family history Social History (Updated 12/19/24 @ 01:42 by Dorothy Carey RN) Smoking Status: Current every day smoker tobacco type: cigarettes packs per day: 1 alcohol intake: never substance use type: marijuana current occupational status: disabled and other Travel in the last 8 weeks?: None household members: spouse housing: house current occupation: laid off current occupational exposures/hazards: No caffeine: Yes Have you lived/traveled outside [place] in past 30 days?: No Contact w/someone who lives/traveled outside US past 30 days?: No Exposure to someone with infectious disease in past 14 days?: No Do you have a fever (greater than 100.4 F or 38 C)?: No Have you tested positive for COVID-19?: No Exposed to someone with COVID-19 in past 14 days?: No Do you have a sore throat?: No Do you have a cough?: No Do you have any weakness?: No Do you have any diarrhea?: No Are you experiencing any unusual bleeding?: No Do you have any muscle aches/pain?: No Do you have any abdominal pain?: No Are you experiencing loss of taste or smell?: No Other Medical History Have you received the Flu Vaccine for this season: No Have you received the Pneumonia Vaccine: No Review of Systems Review of Systems Review of systems:: pertinent systems reviewed and negative unless documented below Constitutional Constitutional: Reports as per HPI Eyes Eyes: Reports as per HPI ENT Ears, Nose, Mouth, and Throat: Reports as per HPI, Reports disequilibrium and Reports dizziness *Cardiovascular Cardiovascular: Reports as per HPI *Respiratory Respiratory: Reports as per HPI *Gastrointestinal Gastrointestinal: Reports as per HPI *Genitourinary Genitourinary: Reports as per HPI *Musculoskeletal Musculoskeletal: Reports as per HPI Integumentary/Breasts Skin/Breast: Reports as per HPI *Neurologic Neurologic: Reports as per HPI, Reports disequilibrium, Reports dizziness and Reports lack of coordination Psychiatric Psychiatric: Reports as per HPI Endocrine Endocrine: Reports as per HPI Hematologic/Lymphatic Hematologic/Lymphatic: Reports as per HPI Allergic/Immunologic Allergic/Immunologic: Reports as per HPI Meds Home Medications and Allergies Home Medications ?Medication ?Instructions ?Recorded ?Confirmed ?Type atorvastatin 80 mg tablet 80 mg PO 11/18/22 5 History blood sugar diagnostic (Krissy 11/18/22 12/19/24 H istory Lite Strips) blood-glucose meter (FreeStyle 11/18/22 12/19/24 Hist ory Lite Meter kit) ezetimibe 10 mg tablet (Zetia) 10 mg PO DAILY 01/01/23 12/19/24 History aspirin 81 mg chewable tablet 81 mg PO DAILY CAD #90 t abs 08/01/23 12/19/24 Rx blood sugar diagnostic (FreeStyle #100 ea 08/01/2303/05 Rx Lite Strips) clopidogrel 75 mg tablet (Plavix) 75 mg PO DAILY CAD # 90 tabs 08/01/23 12/19/24 Rx lancets 30 gauge #200 ea 08/01/23 12/19/24 Rx lisinopril 5 mg tablet 5 mg PO DAILY BLOOD PRESSURE #90 08/01/23 12/19/24 Rx tabs metoprolol succinate 25 mg 25 mg PO DAILY BLOOD PRESSU RE #90 08/01/23 12/19/24 Rx tablet,extended release 24 hr tabs (Toprol XL) meclizine 25 mg tablet 25 mg PO BID PRN dizziness # 60 tabs 12/17/24 12/19/24 Rx empagliflozin 25 mg tablet 25 mg PO DAILY 12/19/2403/05 History (Jardiance) New Prescriptions to Start Prescriptions: Allergies Allergy/AdvReac Type Severity Reaction Status Date / Time ticagrelor (From Brilinta) AdvReac dyspnea Verified 09/04/23 14:30 Exam Data for Last 24 hours Vital signs and Labs for Last 24 Hours: Temp Pulse Resp BP Pulse Ox O2 Del Method 97.4 F L 52 L 16 131/71 96 Room Air 12/19/24 00:54 12/19/24 00:54 12/19/24 00:54 12/19/24 00:54 12/19/24 00:54 12/19/24 00:54 Laboratory Results - last 24 hr 12/18/24 20:15: WBC 10.7, RBC 5.60, Hgb 19.0 H, Hct 51.7, MCV 92.3, MCH 33.9 H, MCHC 36.8 H, RDW 12.0, Plt Count 286, MPV 10.4, Neut % (Auto) 64.7, Lymph % (Auto) 26.5, [place] % (Auto) 6.7, Eos % (Auto) 1.3, Baso % (Auto) 0.6, Neut # (Auto) 6.9, Lymph # (Auto) 2.8, [place] # (Auto) 0.7, Eos # (Auto) 0.1, Baso # (Auto) 0.1, Sodium 134 L, Potassium 4.2, Chloride 100, Carbon Dioxide 27, Anion Gap 11.2, BUN 14, Creatinine 0.90, Estimated Creat Clear 79, Estimated GFR 86, Est GFR ( Amer) 103, Glucose 294 H, Calcium 9.6, Magnesium 2.2 D, Total Bilirubin 1.0, AST 29, ALT 24, Alkaline Phosphatase 180 H, Troponin I < 0.01, Total Protein 8.0, Albumin 4.6, Globulin 3.4 H, Albumin/Globulin Ratio 1.4, Lipase 167 I & O for Last 24 hours: Intake & Output 12/16/24 12/17/24 12/18/24 12/19/24 05:59 05:59 05:59 05:59 Weight 157 lb 5 oz Radiology Reports for the Last 24 Hours: CTA: The cranial circulation is unremarkable. There is normal intracranial branching. There is no significant stenosis, aneurysm or occlusion. IMPRESSION: No acute process. Constitutional Constitutional: mild distress and thin *Routine HEENT Exam Head: Present normocephalic and atraumatic Eye: Present EOMI and PERRL ENT: Present mucous membranes moist *Routine Neck Exam Neck: Present supple Routine Chest/Breast/Axilla Exam Comments: Denies any chest wall tenderness *Routine Respiratory Exam Respiratory: Present CTA bilaterally, normal respiratory effort, able to speak in complete sentences and symmetric chest movement *Routine Cardiovascular Exam Cardiovascular: Present Normal S1 and Normal S2 *Routine Abdominal Exam Abdominal: Present soft and normoactive bowel sounds Comments: No tenderness found on exam *Routine Rectal Exam Rectal:: deferred *Routine Genitalia Exam Genitalia:: deferred *Routine Extremities Exam Extremities: Present full ROM, pulses intact and normal capillary refill *Routine Skin Exam Skin: Present intact, dry and warm *Routine Neurological Exam Neurological: Present alert, oriented X3, CN II-XII intact, vision grossly intact and hearing grossly intact Comments: Patient withstood becomes quite dizzy Routine Psychiatric Exam Psychiatric: Present normal affect and normal thought process H&P: Result Impressions 1. Vertigo, unknown cause, possibly related to the fact the patient has recently started all of his medications back approximately a week ago or a little more Assessment and Plan *Assessment and plan (1) Vertigo: Status: Acute Category: Medical Code(s): R42 - Dizziness and giddiness (2) Dizziness: Status: Acute Category: Medical Code(s): R42 - Dizziness and giddiness (3) Diabetes: Status: Acute Qualifiers: Diabetes mellitus complication status: with other specified complication Diabetes mellitus long-term insulin use: unspecified long-term insulin use status Diabetes mellitus type: other specified (including SHASTA) Qualified Code(s): E13.69 - Other specified diabetes mellitus with other specified complication Category: Medical Code(s): E11.9 - Type 2 diabetes mellitus without complications (4) Chronic low back pain: Status: Acute Qualifiers: Back pain laterality: bilateral Sciatica laterality: sciatica of right side Sciatica presence: with sciatica Qualified Code(s): M54.41 - Lumbago with sciatica, right side; G89.29 - Other chronic pain Category: Medical Code(s): M54.50 - Low back pain, unspecified; G89.29 - Other chronic pain (5) Tobacco abuse: Status: Chronic Category: Medical Code(s): Z72.0 - Tobacco use Plan 1. Patient will be kept in better be only up with assistance., Will do orthostatic blood pressures again tonight to make sure that they are normal., Consult to physical therapy to be able to evaluate vestibular movement to see if we can dislodge any stones. 2. Diabetes will continue to evaluate to control blood sugars, and maintain observation due to the patient's cardiac history of CABG and stent Case with discussed with ER physician, requested admission for persistent vertigo. Medicine decided to admit for further treatment. Patient presented with dizziness. Appeared to have refractory BPPV. Hemoglobin elevated at 19, consistent with hemoconcentration. White count 10.7. No active signs of infection. Platelets 286. Chemistry showing glucose [id number]. Diabetes appears to be uncontrolled. Is not on anything at home per his report. Strong concern the diabetes underlies his vertigo due to fluid balance. Initiated on sliding scale insulin. Hydrating overnight. Patient also bradycardic with heart rate in the 50s. Holding his metoprolol. Therapy to evaluate for BPPV/vestibular rehab. - Repeat CBC, CMP, magnesium ordered for the morning. A1c ordered for the morning. Last A1c in July of .4.
[2024-12-19 06:06] LABS: POC Glucose,Bedside 220 (70-110)
[2024-12-19 06:06] LABS: POC Glucose,Bedside 341 (70-110)
[2024-12-19 08:09] LABS: Hematocrit 47.3 % (42.0-52.0); Immature Granulocytes % 0.5 %; Mean Corpuscular HGB Conc 35.9 g/dL (31.8-35.4); Mean Corpuscular Hemoglobin 33.8 pg (27.0-31.2); Mean Corpuscular Volume 94.0 fl (80-94); Nucleated Red Blood Cells % 0 %; Platelet Count 235 K/mm3 (142-424); Red Blood Count 5.03 M/mm3 (4.60-6.20); Red Cell Distribution Width-SD 41.9 fL; White Blood Count 10.3 K/mm3 (4.8-10.8)
[2024-12-19 08:19] LABS: Alanine Aminotransferase 24 U/L (12-78); Albumin Level 3.8 g/dl (3.5-5.0); Albumin/Globulin Ratio 1.5 (1.1-1.8); Alkaline Phosphatase 152 U/L (38-126); Anion Gap 10.9 mEq/L (5-15); Aspartate Amino Transferase 27 U/L (17-59); Bilirubin,Total 0.6 mg/dl (0.2-1.3); Blood Urea Nitrogen 17 mg/dl (9-20); Calcium 8.5 mg/dl (8.4-10.2); Carbon Dioxide 23 mmol/L (22.0-30.0); Chloride 106 mmol/L (98-107); Creatinine Clearance Estimated 77 mL/min (50-200); Creatinine,Serum 0.90 mg/dl (0.66-1.25); Estimated Glomerular Filt Rate 86 ml/min (>60); GFR (African American) 103 ML/MIN (>60); Globulin 2.5 g/dL (1.3-3.2); Glucose 208 mg/dl (74-100); Potassium 3.9 mmoL/L (3.5-5.1); Sodium 136 mmol/L (136-145); Total Protein,Serum 6.3 g/dl (6.3-8.2)
[2024-12-19 08:54] LABS: Hemoglobin 16.9 g/dL (14.1-18.0)
[2024-12-19 09:01] LABS: Hemoglobin A1C 11.2 % (4.0-6.0)
[2024-12-19] MEDS: INSULIN GLARGINE 100 UNITS/ML 3ML FLEXPEN 15 UNIT SUBCUT (10:19)
[2024-12-19] MEDS: ASPIRIN 81MG CHEWABLE TABLET 81 MG PO (10:19)
[2024-12-19] MEDS: CLOPIDOGREL 75MG TAB 75 MG PO (10:19)
--- NOTE | 2024-12-19 10:22 | HMH.PHAINT1 ---
Pharmacy Intervention Comments: MEDICATION RECONCILIATION COMPLETED ON PATIENT USING EXTERNAL FILL HISTORY FROM PHARMACY. -ABEL MAYORGA, AUSTYND
[2024-12-19 12:04] LABS: POC Glucose,Bedside 261 (70-110)
--- NOTE | 2024-12-19 12:35 | EXP.ACUTE.PN ---
Subjective *Date: 12/19/24 *Time: 12:35 Interval history: Slight improvement in dizziness this morning. Able to lay and watch TV without feeling like the world spinning. On room air. Anxious this morning. Has not been on any diabetes medications since stopping his metformin due to it upsetting his stomach. Worried about how long it is going to take him to get better from this dizziness. Denies chest pain or shortness of breath. Medical Exam Vital signs and Labs for Last 24 Hours: Vital Signs Temp Pulse Pulse Resp BP BP Pulse Ox 12/19/24 11:10 12/19/24 09:15 12/19/24 08:45 98 12/19/24 08:00 97.8 F 56 L 16 136/70 98 12/19/24 06:56 12/19/24 05:00 12/19/24 04:00 97.7 F 55 L 16 138/74 98 12/19/24 03:00 12/19/24 01:00 12/19/24 00:54 97.4 F L 52 L 16 131/71 96 12/19/24 00:33 97 12/19/24 00:25 98.2 F 55 L 16 144/67 H 12/18/24 23:45 48 L 98 12/18/24 23:30 48 L 136/72 98 12/18/24 23:00 54 L 136/78 100 12/18/24 22:31 54 L 153/87 H 100 12/18/24 22:02 52 L 142/88 H 98 12/18/24 21:30 49 L 14 145/73 H 96 12/18/24 21:01 50 L 22 142/76 H 96 12/18/24 20:31 60 15 128/85 96 12/18/24 20:23 98.2 F 57 L 18 141/100 H 98 12/18/24 20:20 98.2 F 57 L 20 141/100 H 98 O2 Del Method 12/19/24 11:10 Room Air 12/19/24 09:15 Room Air 12/19/24 08:45 Room Air 12/19/24 08:00 Room Air 12/19/24 06:56 Room Air 12/19/24 05:00 Room Air 12/19/24 04:00 Room Air 12/19/24 03:00 Room Air 12/19/24 01:00 Room Air 12/19/24 00:54 Room Air 12/19/24 00:33 Room Air 12/19/24 00:25 Room Air 12/18/24 23:45 12/18/24 23:30 12/18/24 23:00 12/18/24 22:31 12/18/24 22:02 12/18/24 21:30 12/18/24 21:01 12/18/24 20:31 12/18/24 20:23 Room Air 12/18/24 20:20 Room Air Intake and Output 12/18/24 12/19/24 12/19/24 23:59 07:59 15:59 Intake Total 360 / 800 440 / 800 Output Total 800 / 1200 400 / 1200 Balance -440 / -400 40 / -400 Intake: Intake, Oral Amount 360 / 800 440 / 800 Output: Output, Urine Amount 800 / 1200 400 / 1200 Other: Weight 72.575 kg 71.441 kg Patient Weight 12/19/24 23:59 Weight 71.441 kg Laboratory Results - last 24 hr 12/18/24 20:15: WBC 10.7, RBC 5.60, Hgb 19.0 H, Hct 51.7, MCV 92.3, MCH 33.9 H, MCHC 36.8 H, RDW 12.0, Plt Count 286, MPV 10.4, Neut % (Auto) 64.7, Lymph % (Auto) 26.5, [place] % (Auto) 6.7, Eos % (Auto) 1.3, Baso % (Auto) 0.6, Neut # (Auto) 6.9, Lymph # (Auto) 2.8, [place] # (Auto) 0.7, Eos # (Auto) 0.1, Baso # (Auto) 0.1, Sodium 134 L, Potassium 4.2, Chloride 100, Carbon Dioxide 27, Anion Gap 11.2, BUN 14, Creatinine 0.90, Estimated Creat Clear 79, Estimated GFR 86, Est GFR ( Amer) 103, Glucose 294 H, Calcium 9.6, Magnesium 2.2 D, Total Bilirubin 1.0, AST 29, ALT 24, Alkaline Phosphatase 180 H, Troponin I < 0.01, Total Protein 8.0, Albumin 4.6, Globulin 3.4 H, Albumin/Globulin Ratio 1.4, Lipase 167 12/19/24 00:54: POC Glucose 341 H* 12/19/24 05:50: POC Glucose 220 H 12/19/24 07:45: WBC 10.3, RBC 5.03, Hgb 16.9 D, Hct 47.3, MCV 94.0, MCH 33.8 H, MCHC 35.9 H, RDW 12.2, Plt Count 235, MPV 10.5 H, Neut % (Auto) 71.5, Lymph % (Auto) 19.4, [place] % (Auto) 6.3, Eos % (Auto) 1.8, Baso % (Auto) 0.5, Neut # (Auto) 7.3, Lymph # (Auto) 2.0, [place] # (Auto) 0.7, Eos # (Auto) 0.2, Baso # (Auto) 0.1, Sodium 136, Potassium 3.9, Chloride 106, Carbon Dioxide 23, Anion Gap 10.9, BUN 17, Creatinine 0.90, Estimated Creat Clear 77, Estimated GFR 86, Est GFR ( Amer) 103, Glucose 208 H D, Hemoglobin A1c 11.2 H, Calcium 8.5, Total Bilirubin 0.6, AST 27, ALT 24, Alkaline Phosphatase 152 H, Total Protein 6.3, Albumin 3.8 D, Globulin 2.5, Albumin/Globulin Ratio 1.5 12/19/24 11:54: POC Glucose 261 H I & O for Labs for Last 24 Hours: Intake & Output 12/16/24 12/17/24 12/18/24 12/19/24 23:59 23:59 23:59 23:59 Intake Total 800 / 800 Output Total 1200 / 1200 Balance -400 / -400 Weight 72.575 kg 71.441 kg Constitutional: Present no acute distress, thin and cooperative Head: Present atraumatic and normocephalic ENT: Present normal exam Respiratory: Present normal respiratory effort; Absent rhonchi, wheezes or crackles Cardiac: Present Reg Rate and Rhythm GI: Present soft and normal bowel sounds; Absent distention or tenderness Extremities: Present normal inspection and full ROM Skin: Present intact; Absent erythema Neuro: Present Grossly Intact, alert, awake, oriented x 3 and moves all extremities Assessment and Plan *Assessment and plan (1) Vertigo: Status: Acute Category: Medical Code(s): R42 - Dizziness and giddiness (2) Dizziness: Status: Acute Category: Medical Code(s): R42 - Dizziness and giddiness (3) Diabetes: Status: Acute Qualifiers: Diabetes mellitus type: type 2 Diabetes mellitus rat exterminator insulin use: without rat exterminator use Diabetes mellitus complication status: with circulatory complication Diabetes mellitus complication detail: with other circulatory complications Qualified Code(s): E11.59 - Type 2 diabetes mellitus with other circulatory complications Category: Medical Code(s): E11.9 - Type 2 diabetes mellitus without complications (4) Chronic low back pain: Status: Acute Qualifiers: Back pain laterality: bilateral Sciatica laterality: sciatica of right side Sciatica presence: with sciatica Qualified Code(s): M54.41 - Lumbago with sciatica, right side; G89.29 - Other chronic pain Category: Medical Code(s): M54.50 - Low back pain, unspecified; G89.29 - Other chronic pain (5) Tobacco abuse: Status: Chronic Category: Medical Code(s): Z72.0 - Tobacco use (6) Hx of CABG: Status: Chronic Category: Surgical Code(s): Z95.1 - Presence of aortocoronary bypass graft (7) CAD (coronary artery disease): Problem Comment: JUN 2021-Acute inferolateral ST elevation myocardial infarction as described above Successful mechanical aspiration followed by drug-eluting stent deployment to the proximal mid and distal dominant right coronary in a contiguous manner 100% occlusion reduced to 0% with 2 contiguous drug-eluting stents Preserved ejection fraction of 45 to 50% with inferior wall hypokinesis Mildly elevated LVEDP Patent JORGE to the LAD Patent saphenous vein graft to circumflex artery Status: Chronic Qualifiers: Coronary Disease-Associated Artery/Lesion type: [place] artery [place] vs. transplanted heart: [place]ung heart Associated angina: without angina Qualified Code(s): I25.10 - Atherosclerotic heart disease of [place] coronary artery without angina pectoris Category: Medical Code(s): I25.10 - Atherosclerotic heart disease of [place] coronary artery without angina pectoris Plan 64-year-old male with history of CABG and CAD, stents placed in 2021. Presents with persistent dizziness. Has diabetes that is uncontrolled. Necessitating inpatient care at this time. Adjusting insulin regimen. Therapy to evaluate today for vestibular rehab. Problems addressed as follows: Dizziness/vertigo -Differential includes cardiogenic, metabolic secondary to uncontrolled diabetes with dehydration exacerbated by recent heat, related to his bradycardia/medication side effect. -PT to evaluate today. -Continue scopolamine patch -Addressing uncontrolled diabetes Diabetes: A1c elevated 11.2. Glucose this morning at 208. Initiated on insulin glargine 15 units this morning. Will continue sliding scale and evaluate insulin needs. - Kidney function normal with BUN 17, creatinine 0.9. Potassium 3.9. Repeat CBC, CMP, magnesium ordered for the morning. - Resume Jardiance 25 mg daily Erythrocytosis: Hemoglobin 19 on admission. Suspect hemoconcentration. Improved to 17 this morning after fluid resuscitation. No active signs of bleeding. Hypertension History of CAD History of CABG -Continue home aspirin daily, Lipitor 80 mg nightly, Plavix 75 mg daily. Holding metoprolol in the setting of bradycardia. Look to resume lisinopril in the morning if blood pressure remains normal Full code Diabetic diet plov
--- NOTE | 2024-12-19 17:36 | PC.NURSE ---
pt is A&Ox4. he is on room air. he says that his vertigo is slowing down as long as he does not move suddenly. His blood sugars are decreasing with the insulin and some home meds were started back. pt has no other needs at this time. call light is within reach.
[2024-12-19] MEDS: ATORVASTATIN 40MG TABLET 80 MG PO (21:07)
[2024-12-19 21:11] LABS: POC Glucose,Bedside 185 (70-110)
[2024-12-20 04:00] VITALS: BP 115/65; PULSE 53; RESP 16; TEMP 36.6; O2SAT 96; BMI 21.9
[2024-12-20] MEDS: humaLOG 100 UNITS/ML 10ML VIAL (SSI) SUBCUT (06:52)
[2024-12-20 06:55] LABS: POC Glucose,Bedside 187 (70-110)
[2024-12-20 07:00] LABS: Hematocrit 47.6 % (42.0-52.0); Hemoglobin 16.4 g/dL (14.1-18.0); Immature Granulocytes % 0.4 %; Mean Corpuscular HGB Conc 34.5 g/dL (31.8-35.4); Mean Corpuscular Hemoglobin 32.3 pg (27.0-31.2); Mean Corpuscular Volume 93.7 fl (80-94); Nucleated Red Blood Cells % 0 %; Platelet Count 214 K/mm3 (142-424); Red Blood Count 5.08 M/mm3 (4.60-6.20); Red Cell Distribution Width-SD 41.2 fL; White Blood Count 10.1 K/mm3 (4.8-10.8)
[2024-12-20 07:03] LABS: Albumin Level 3.8 g/dl (3.5-5.0); Chloride 103 mmol/L (98-107); Potassium 4.0 mmoL/L (3.5-5.1); Sodium 134 mmol/L (136-145)
[2024-12-20 07:06] LABS: Alanine Aminotransferase 20 U/L (12-78); Albumin/Globulin Ratio 1.5 (1.1-1.8); Alkaline Phosphatase 134 U/L (38-126); Anion Gap 13.0 mEq/L (5-15); Aspartate Amino Transferase 25 U/L (17-59); Bilirubin,Total 0.7 mg/dl (0.2-1.3); Blood Urea Nitrogen 22 mg/dl (9-20); Calcium 8.3 mg/dl (8.4-10.2); Carbon Dioxide 22 mmol/L (22.0-30.0); Creatinine Clearance Estimated 77 mL/min (50-200); Creatinine,Serum 0.80 mg/dl (0.66-1.25); Estimated Glomerular Filt Rate 98 ml/min (>60); GFR (African American) 119 ML/MIN (>60); Globulin 2.6 g/dL (1.3-3.2); Glucose 156 mg/dl (74-100); Magnesium 1.7 mg/dl (1.6-2.3); Total Protein,Serum 6.4 g/dl (6.3-8.2)
--- NOTE | 2024-12-20 07:34 | P.DS_ITS ---
General Admission date:: 12/19/24 Discharge date: 12/20/24 HPI HPI HPI: Mr. Hills said he has had a little bit of dizziness off-and-on for little more than a week., But that today it hit him terribly that anytime he tries to move he wants to fall over.. He states it feels as if the room is spinning around him. He does note 1 changes that he had not been taking his other medications on a regular basis saw his doctor a little more than a week ago and started taking his medicines again. To note the patient is insistent that if he takes the medicine it is only supposed to be once a day because he cannot remember to take it any more than that. Patient is also a long-term smoker. And he has a product support consultant follow-up appointment on this coming . In reviewing his history in 2018 2019 was seen for some confusion and amnesia also some headache. Patient now has chronic back pain and is disabled due to his back and neck. His main problem today is the dizziness that he experiences anytime he tries to stand up. He was actually in the emergency room the day before sent home but has come back with the same thing., Plan to repeat orthostatic hypotension vital signs and to consult physical therapy for possible vestibular therapy. Hospital Course Hospital Course Hospital Course: 64-year-old male with history of CABG and CAD, stents placed in 2021. Presents with persistent dizziness. Has diabetes that is uncontrolled. Necessitated inpatient management. Showed response to initiation of basal bolus regimen. Improving dizziness. Stable to discharge home with further management as an outpatient. Problems addressed as follows: Dizziness/vertigo -Differential includes cardiogenic, metabolic secondary to uncontrolled diabetes with dehydration exacerbated by recent heat, related to his bradycardia/medication side effect. CTA of head and neck with no significant stenosis. Neck findings as follows: - Moderate vascular calcifications are noted at the carotid bifurcations. RIGHT CAROTID: No significant stenosis is seen of the cervical common or internal carotid artery. LEFT CAROTID: Less than 50% stenosis. VERTEBRALS: The vertebrals are patent. Left vertebral artery is dominant. No significant stenosis is present. -PT evaluated. Suspect dizziness is multifactorial. Does not have classic findings of vertigo. Given various exercises to improve his dizziness. Suspect treating his underlying uncontrolled diabetes will help significantly with his dizziness. Evaluate for improvement with correction of hyperglycemia Diabetes: - A1c elevated 11.2. Glucose severely elevated on admission. Started on basal bolus regimen. Showing improvement. Will transition to once daily basal insulin with glargine 30 units in the morning. Encouraged him to monitor glucose 3 times a day as he has a meter at home. Morning glucose 156 on day of discharge. Feeling somewhat better with improvement in his glucose control. Continue Jardiance per home regimen. Follow-up within the next week with PCP for further management adjustment. Would benefit from referral to endocrinology for further management of his diabetes. Erythrocytosis: Hemoglobin 19 on admission. Suspect hemoconcentration. Improved to 16 by day of discharge with fluid resuscitation and iatrogenic blood loss. No active signs of bleeding. Hypertension History of CAD History of CABG -Continue home aspirin daily, Lipitor 80 mg nightly, Plavix 75 mg daily. Holding metoprolol in the setting of bradycardia. Resumed lisinopril at 5 mg daily. Recommend continuing home Jardiance 25 mg daily for heart failure component and diabetes as above. Total time spent on discharge 32 minutes in counseling, documentation, chart review, and direct care with patient. Exam Data for Last 24 hours Vital signs and Labs for Last 24 Hours: Temp Pulse Resp BP Pulse Ox O2 Del Method 97.5 F L 50 L 16 143/75 H 97 Room Air 12/19/24 20:00 12/19/24 20:00 12/19/24 20:00 12/19/24 20:00 12/19/24 20:00 12/19/24 23:00 Laboratory Results - last 24 hr 12/19/24 07:45: WBC 10.3, RBC 5.03, Hgb 16.9 D, Hct 47.3, MCV 94.0, MCH 33.8 H, MCHC 35.9 H, RDW 12.2, Plt Count 235, MPV 10.5 H, Neut % (Auto) 71.5, Lymph % (Auto) 19.4, [place] % (Auto) 6.3, Eos % (Auto) 1.8, Baso % (Auto) 0.5, Neut # (Auto) 7.3, Lymph # (Auto) 2.0, [place] # (Auto) 0.7, Eos # (Auto) 0.2, Baso # (Auto) 0.1, Sodium 136, Potassium 3.9, Chloride 106, Carbon Dioxide 23, Anion Gap 10.9, BUN 17, Creatinine 0.90, Estimated Creat Clear 77, Estimated GFR 86, Est GFR ( Amer) 103, Glucose 208 H D, Hemoglobin A1c 11.2 H, Calcium 8.5, Total Bilirubin 0.6, AST 27, ALT 24, Alkaline Phosphatase 152 H, Total Protein 6.3, Albumin 3.8 D, Globulin 2.5, Albumin/Globulin Ratio 1.5 12/19/24 11:54: POC Glucose 261 H 12/19/24 21:02: POC Glucose 185 H 12/20/24 06:31: WBC 10.1, RBC 5.08, Hgb 16.4, Hct 47.6, MCV 93.7, MCH 32.3 H, MCHC 34.5, RDW 11.9, Plt Count 214, MPV 10.5 H, Neut % (Auto) 67.4, Lymph % (Auto) 23.8, [place] % (Auto) 6.3, Eos % (Auto) 1.7, Baso % (Auto) 0.4, Neut # (Auto) 6.8, Lymph # (Auto) 2.4, [place] # (Auto) 0.6, Eos # (Auto) 0.2, Baso # (Auto) 0.0, Sodium 134 L, Potassium 4.0, Chloride 103, Carbon Dioxide 22, Anion Gap 13.0, BUN 22 H D, Creatinine 0.80, Estimated Creat Clear 77, Estimated GFR 98, Est GFR ( Amer) 119, Glucose 156 H D, Calcium 8.3 L, Magnesium 1.7 D , Total Bilirubin 0.7, AST 25, ALT 20, Alkaline Phosphatase 134 H, Total Protein 6.4, Albumin 3.8, Globulin 2.6, Albumin/Globulin Ratio 1.5 12/20/24 06:48: POC Glucose 187 H I & O for Last 24 hours: Intake & Output 12/17/24 12/18/24 12/19/24 12/20/24 23:59 23:59 23:59 23:59 Intake Total 1480 / 1720 240 / 240 Output Total 1800 / 2100 300 / 300 Balance -320 / -380 -60 / -60 Weight 72.575 kg 71.441 kg Constitutional Constitutional: no acute distress, thin and cooperative *Routine HEENT Exam Head: Present normocephalic Eye: Present EOMI and PERRL ENT: Present mucous membranes moist *Routine Neck Exam Neck: Present supple; Absent lymphadenopathy Routine Chest/Breast/Axilla Exam Comments: Well-healed midline scar *Routine Respiratory Exam Respiratory: Present CTA bilaterally; Absent rhonchi, wheezes or crackles *Routine Cardiovascular Exam Cardiovascular: Present RRR *Routine Abdominal Exam Abdominal: Present soft and normoactive bowel sounds; Absent tenderness *Routine Rectal Exam Patient deferred: visual exam *Routine Exam Patient deferred: penile exam *Routine Extremities Exam Extremities: Absent cyanosis, clubbing or edema *Routine Skin Exam Skin: Present intact and warm; Absent rash *Routine Neurological Exam Neurological: Present alert, oriented X3, CN II-XII intact and moving all extremities; Absent altered mental status Results Data Completed and Pending Labs on day of discharge: Labs from last 24 hours 12/20/24 12/20/24 12/19/24 06:48 06:31 21:02 WBC 10.1 RBC 5.08 Hgb 16.4 Hct 47.6 MCV 93.7 MCH 32.3 H MCHC 34.5 RDW 11.9 Plt Count 214 MPV 10.5 H Neut % (Auto) 67.4 Lymph % (Auto) 23.8 [place] % (Auto) 6.3 Eos % (Auto) 1.7 Baso % (Auto) 0.4 Neut # (Auto) 6.8 Lymph # (Auto) 2.4 [place] # (Auto) 0.6 Eos # (Auto) 0.2 Baso # (Auto) 0.0 Sodium 134 L Potassium 4.0 Chloride 103 Carbon Dioxide 22 Anion Gap 13.0 BUN 22 H D Creatinine 0.80 Estimated Creat Clear 77 Estimated GFR 98 Est GFR ( Amer) 119 Glucose 156 H D POC Glucose 187 H 185 H Hemoglobin A1c Calcium 8.3 L Magnesium 1.7 D Total Bilirubin 0.7 AST 25 ALT 20 Alkaline Phosphatase 134 H Total Protein 6.4 Albumin 3.8 Globulin 2.6 Albumin/Globulin Ratio 1.5 12/19/24 12/19/24 11:54 07:45 WBC 10.3 RBC 5.03 Hgb 16.9 D Hct 47.3 MCV 94.0 MCH 33.8 H MCHC 35.9 H RDW 12.2 Plt Count 235 MPV 10.5 H Neut % (Auto) 71.5 Lymph % (Auto) 19.4 [place] % (Auto) 6.3 Eos % (Auto) 1.8 Baso % (Auto) 0.5 Neut # (Auto) 7.3 Lymph # (Auto) 2.0 [place] # (Auto) 0.7 Eos # (Auto) 0.2 Baso # (Auto) 0.1 Sodium 136 Potassium 3.9 Chloride 106 Carbon Dioxide 23 Anion Gap 10.9 BUN 17 Creatinine 0.90 Estimated Creat Clear 77 Estimated GFR 86 Est GFR ( Amer) 103 Glucose 208 H D POC Glucose 261 H Hemoglobin A1c 11.2 H Calcium 8.5 Magnesium Total Bilirubin 0.6 AST 27 ALT 24 Alkaline Phosphatase 152 H Total Protein 6.3 Albumin 3.8 D Globulin 2.5 Albumin/Globulin Ratio 1.5 DS: Diagnosis Discharge Diagnosis (1) Vertigo: Status: Acute Code(s): R42 - Dizziness and giddiness (2) Dizziness: Status: Acute Code(s): R42 - Dizziness and giddiness (3) Diabetes: Status: Acute Code(s): E11.9 - Type 2 diabetes mellitus without complications Qualifiers: Diabetes mellitus complication detail: with other circulatory complications Diabetes mellitus complication status: with circulatory complication Diabetes mellitus terminal block assembler insulin use: without terminal block assembler use Diabetes mellitus type: type 2 Qualified Code(s): E11.59 - Type 2 diabetes mellitus with other circulatory complications (4) Chronic low back pain: Status: Acute Code(s): M54.50 - Low back pain, unspecified; G89.29 - Other chronic pain Qualifiers: Back pain laterality: bilateral Sciatica laterality: sciatica of right side Sciatica presence: with sciatica Qualified Code(s): M54.41 - Lumbago with sciatica, right side; G89.29 - Other chronic pain (5) Tobacco abuse: Status: Chronic Code(s): Z72.0 - Tobacco use (6) Hx of CABG: Status: Chronic Code(s): Z95.1 - Presence of aortocoronary bypass graft (7) CAD (coronary artery disease): Status: Chronic Code(s): I25.10 - Atherosclerotic heart disease of [place] coronary artery without angina pectoris Qualifiers: Associated angina: without angina Coronary Disease-Associated Artery/Lesion type: [place] artery [place] vs. transplanted heart: [place] heart Qualified Code(s): I25.10 - Atherosclerotic heart disease of [place] coronary artery without angina pectoris Problem details: JUN 2021-Acute inferolateral ST elevation myocardial infarction as described above Successful mechanical aspiration followed by drug-eluting stent deployment to the proximal mid and distal dominant right coronary in a contiguous manner 100% occlusion reduced to 0% with 2 contiguous drug-eluting stents Preserved ejection fraction of 45 to 50% with inferior wall hypokinesis Mildly elevated LVEDP Patent JORGE to the LAD Patent saphenous vein graft to circumflex artery Meds Home Medications and Allergies Home Medications ?Medication ?Instructions ?Recorded ?Confirmed ?Type atorvastatin 80 mg tablet 80 mg PO HS 11/18/22 5 History blood sugar diagnostic (FreeStyle 11/18/22 12/19/24 H istory Lite Strips) blood-glucose meter (FreeStyle 11/18/22 12/19/24 Hist ory Lite Meter kit) ezetimibe 10 mg tablet (Zetia) 10 mg PO DAILY 01/01/23 12/19/24 History aspirin 81 mg chewable tablet 81 mg PO DAILY CAD #90 t abs 08/01/23 12/19/24 Rx blood sugar diagnostic (FreeStyle #100 ea 08/01/2303/05 Rx Lite Strips) clopidogrel 75 mg tablet (Plavix) 75 mg PO DAILY CAD # 90 tabs 08/01/23 12/19/24 Rx lancets 30 gauge #200 ea 08/01/23 12/19/24 Rx lisinopril 5 mg tablet 5 mg PO DAILY BLOOD PRESSURE #90 08/01/23 12/19/24 Rx tabs metoprolol succinate 25 mg 25 mg PO DAILY BLOOD PRESSU RE #90 08/01/23 12/19/24 Rx tablet,extended release 24 hr tabs (Toprol XL) Held on 12/20/24. Instructions: pending follow-up with PCP meclizine 25 mg tablet 25 mg PO BID PRN dizziness # 60 tabs 12/17/24 12/19/24 Rx empagliflozin 25 mg tablet 25 mg PO DAILY 12/19/2403/05 History (Jardiance) insulin glargine 100 unit/mL (3 30 unit (0.3 mL) SQ DA EVELIO 30 days 12/20/24 Rx mL) subcutaneous pen (Lantus #9 mL Solostar U-100 Insulin) pen needle, diabetic 31 gauge x #100 ea 12/20/24 Rx / New Prescriptions to Start Prescriptions: insulin glargine [Lantus Solostar U-100 Insulin] Jose Fields pen needle, diabetic Jose Fields Allergies Allergy/AdvReac Type Severity Reaction Status Date / Time ticagrelor (From Brilinta) AdvReac dyspnea Verified 09/04/23 14:30 Discharge Plan Disposition Patient Disposition: Home, Self-Care Condition: Fair Follow up Plan Follow up with: Rosanna Sanchez APRN [Primary Care Provider, Medical] - 01/03/25 1:40 pm Prescriptions/Medication Reconciliation: New insulin glargine [Lantus Solostar U-100 Insulin] 100 unit/mL (3 mL) Insulin Pen 30 unit SQ DAILY 30 Days Qty: 9 0RF (DME) pen needle, diabetic 31 gauge x 1/4 needle See Rx Instructions .ROUTE .MEDSUPPLY Qty: 100 0RF Rx Instructions: daily with insulin Continued aspirin 81 mg tablet,chewable 81 mg PO DAILY Qty: 90 1RF (DME) FreeStyle Lite Strips Strip See Rx Instructions .Route Qty: 100 10RF Rx Instructions: As directed clopidogrel [Plavix] 75 mg tablet 75 mg PO DAILY Qty: 90 1RF (DME) lancets 30 gauge misc See Rx Instructions .Route Qty: 200 0RF Rx Instructions: As directed lisinopril 5 mg tablet 5 mg PO DAILY Qty: 90 1RF Jardiance 25 mg tablet 25 mg PO DAILY Patient Comments: TAKE 1 TABLET BY MOUTH ONCE A DAY atorvastatin 80 mg tablet 80 mg PO HS (DME) FreeStyle Lite Strips Strip See Rx Instructions .Route Rx Instructions: As directed (DME) blood-glucose meter [FreeStyle Lite Meter] Kit See Rx Instructions .Route Rx Instructions: As directed ezetimibe [Zetia] 10 mg tablet 10 mg PO DAILY meclizine 25 mg tablet 25 mg PO BID PRN (Reason: dizziness) Qty: 60 0RF Held metoprolol succinate [Toprol XL] 25 mg tablet extended release 24 hr 25 mg PO DAILY Qty: 90 1RF Hold Instructions: pending follow-up with PCP Problem Reconciliation Problems Reviewed?: Yes Patient Discharge Instructions ACTIVITY: Continue current activity DIET: continue same diet Patient Instructions: Vertigo Print Language: Portuguese Providers Primary Care Provider: Rosanna Sanchez Admit Provider: Jose Fields Attending Provider: Jose Fields
[2024-12-20 07:44] VITALS: BP 127/62; PULSE 57; RESP 18; TEMP 36.9; O2SAT 96
--- NOTE | 2024-12-20 08:32 | SW/DCPLANNER ---
Addendum entered by Kaya Porras 12/20/24 10:00: Per PT no needs at this time. Original Note: I spoke w/ patient this AM regarding plans once medically stable for discharge. PT/OT will evaluate patient this AM. Patient stated that he resides at home w/ his and may need a rolling walker at discharge. I will continue to follow up. Per MD patient will discharge home today.
[2024-12-20] MEDS: ASPIRIN 81MG CHEWABLE TABLET 81 MG PO (09:41)
[2024-12-20] MEDS: CLOPIDOGREL 75MG TAB 75 MG PO (09:42)
[2024-12-20] MEDS: LISINOPRIL 5MG TABLET 5 MG PO (09:42)
[2024-12-20] MEDS: EMPAGLIFLOZIN 25MG TABLET 25 MG PO (09:42)
[2024-12-20] MEDS: INSULIN GLARGINE 100 UNITS/ML 3ML FLEXPEN 30 UNIT SUBCUT (09:56)
--- NOTE | 2024-12-20 10:05 | HMH.PTEV ---
Physical Therapy Evaluation Rehab PT IP Evaluation Start: 12/19/24 01:43 Freq: ONCE Status: Active Protocol: Document 12/20/24 09:52 PHORNE (Rec: 12/20/24 10:05 PHORNE [id number]) Subjective/History History History 64 yowm has had a little bit of dizziness off-and-on for little more than a week., But that today it hit him terribly that anytime he tries to move he wants to fall over.. He states it feels as if the room is spinning around him. He does note 1 changes that he had not been taking his other medications on a regular basis saw his doctor a little more than a week ago and started taking his medicines again. To note the patient is insistent that if he takes the medicine it is only supposed to be once a day because he cannot remember to take it any more than that. Patient is also a long-term smoker. And he has a engineering program analyst follow-up appointment on this coming . In reviewing his history in 2017 2019 was seen for some confusion and amnesia also some headache. Patient now has chronic back pain and is disabled due to his back and neck. His main problem today is the dizziness that he experiences anytime he tries to stand up. He was actually in the emergency room the day before sent home but has come back with the same thing., Plan to repeat orthostatic hypotension vital signs and to consult physical therapy for possible vestibular therapy. Pt reports he lives with his , No MIKEY the home, and he is generally independent with all mobility without AD at baseline. Subjective Subjective Pt reports he feels fine laying supine and has no vertigo sensations at all. He does report feeling dizzy and lightheaded when upright. He agrees to mobility assessment this am. [facility] How much help from another person do you currently need... Turning from your None back to your side while in a flat bed without using bedrails? Moving from lying on None back to sitting on the side of a flat bed without using bedrails? Moving to and from a None bed to a chair ( including a wheelchair)? Standing up from a None chair using your arms? (e.g., wheelchair, bedside chair) Walking in hospital None room? Climbing 3-5 steps None with a railing? Mobility Score 24 Mobility Level [facility] Mobility 8 Walk 250 feet or more Mobility Calculator Rehab PT IP Eval Objective Appearance Patient Behavior Appropriate Patient Orientation Person,Place,Time Difficulty following none instructions Speech Pattern Clear Ambulation Patient Able to Yes Ambulate Ambulation Observation IP General Gait Wide Based Gait Pattern Observation Ambulation Distance 20 (feet) Ambulation Assistive None Device Ambulation Ability Supervision/Stand by Balance Ability to Arise Able, uses arms to help Sitting Balance Steady, safe Standing Balance Steady, wide stance Dynamic Sitting Good Balance Ability Dynamic Standing Good Balance Ability Transfers Bed Transfer Ability Independent Chair Transfer Independent Ability Sit to Stand Bed Independent Transfer Ability Sit to Stand Chair Independent Transfer Ability Rehab PT IP prob,goals,plan Problems Date of Evaluation: 12/20/24 Discharge Plan PT Discharge Plan Pt screened for Vestibular pathology and has no nystagmus noted with Karen-Hallpike test, but does have increased dizziness with Head Shake Nystagmus test and Optokinetic Nystagmus test for gaze stabilization. No current acute skilled treatment needs at this time, pt instructed in habituation exercises for HEP. Eval Complexity Eval Charge Codes 91533 - High Complexity PHYSICIAN CERTIFICATION: I certify the specified therapy services for Nasir Hills are required, authorized, and reviewed every 30 days.
[2024-12-20 10:09] LABS: POC Glucose,Bedside 185 (70-110)
--- NOTE | 2024-12-21 10:04 | SW/DCPLANNER ---
Spok with patient's on the phone. Patient's stated that he isnt doing well. Patient's stated that they are aware of his upcoming appointments. Patient's stated that they were able to get their new medicine picked up from clinic pharmacy. Patient's stated that they have no concerns or questions at this time. Christina Ambriz
[2024-12-23 16:11] LABS: POC Glucose,Bedside 174 (70-110)
== END 2024-12-20 14:13 | disposition home or self-care (01) ==
LOC: ER 20:14 → 2ND 12-19 00:14
PROVIDERS: Nurse Practitioner; Admitting Provider Internal Medicine Adolescent Medicine; Emergency Provider Student in an Organized Health Care Education/Training Program; PCP Nurse Practitioner Family; Visit Provider Internal Medicine Adolescent Medicine
DX: R42 Dizziness and giddiness (principal); I25.10 Atherosclerotic heart disease of native coronary artery without angina pectoris; E11.59 Type 2 diabetes mellitus with other circulatory complications; M54.41 Lumbago with sciatica, right side; D75.1 Secondary polycythemia; I10 Essential (primary) hypertension; F17.210 Nicotine dependence, cigarettes, uncomplicated; I25.2 Old myocardial infarction; R00.1 Bradycardia, unspecified; G89.29 Other chronic pain; Z88.8 Allergy status to other drugs, medicaments and biological substances; Z95.1 Presence of aortocoronary bypass graft; Z95.5 Presence of coronary angioplasty implant and graft; Z79.82 Long term (current) use of aspirin; Z79.02 Long term (current) use of antithrombotics/antiplatelets; Z79.899 Other long term (current) drug therapy
CPT/HCPCS: 36415; 80053; 82962; 83036; 83690; 83735; 84484; 85025; 93005; 96361; 96374; 96375; 96376; 97163; 97165; 99285; G0378; J1650; J1885; J2405; J3360; J7030